=== PATIENT | female | born 1955 | race Caucasian/White ===

== ENCOUNTER 2018-08-20 11:50 | Inpatient (IN) ==
[2018-08-20 12:21] LABS: BASO# 0.07 X1000 (0.0-0.2); BASO% 0.3 % (0.0-0.8); HEMATOCRIT 36.5 % (37.0-47.0); IMM GRAN# 0.22 X1000 (0.0-0.04); IMM GRAN% 0.9 % (0.0-0.5); LYMPH# 0.57 X1000 (1.2-3.4); LYMPH% 2.4 % (20.5-51.1); MCH 29.1 PG (27-31); MCHC 32.9 g/dL (33-37); MCV 88.6 FL (81-99); MONO# 0.72 X1000 (0.11-0.59); MPV 11.2 FL (7.4-10.4); NEUT# 22.22 X1000 (1.4-6.5); NEUT% 93.4 % (42.2-75.2); PLT 288 X1000 (130-400); RBC 4.12 XMIL (4.2-5.4); RDW 15.9 % (11.5-14.5)
[2018-08-20] MEDS ORDERED: NS 1,000 ML IV ONE ×2 (12:28→13:23)
[2018-08-20 12:32] LABS: BE -1.1 mmoll (-3.0-3.0); BLOOD TYPE ARTERIAL; METHB 0.9 % (0.0-1.5); O2(CT) 17.5 mL/dL (15.0-23.0); O2HB 95.9 % (95.0-99.0); PCO2(98.6) 33 mmHg (35-45); PO2(98.6) 108 mmHg (60-100); SAMPLE BLOOD; SAO2 99.5 % (95.0-100.0); THB 12.9 g/dL (11.5-17.4); pH(98.6) 7.44 (7.35-7.45)
[2018-08-20 12:36] LABS: ALLEN TEST NO; MODALITY CANNULA
--- NOTE | 2018-08-20 12:48 | Diag Imaging Result Doc PS360 ---
EXAM: CHEST-PORTABLE - 08/20/2018 HISTORY: ams TECHNIQUE: Portable chest COMPARISON: 07/07/2018 FINDINGS: Heart size appears normal. Inspiration is somewhat shallow. There are stable small granuloma from old granulomatous disease at the right base. Lungs otherwise appear essentially clear. There is no pleural effusion or pneumothorax identified. IMPRESSION: Somewhat shallow inspiration. No other evidence of acute disease. Electronically signed by Bear Patel 08/20/2018 12:45 PM
[2018-08-20 13:00] LABS: ACETONE SERUM MODERATE (NEGATIVE)
[2018-08-20] MEDS ORDERED: TYLENOL PR ONE (13:11)
[2018-08-20 13:22] LABS: ALBUMIN 3.6 g/dL (3.5-5.0); CALCIUM 9.1 mg/dL (8.8-10.2); CREATININE 1.8 mg/dL (0.5-0.9); POTASSIUM 3.3 mmol/L (3.5-5.1); TOTAL BILIRUBIN 1.2 mg/dL (0.20-1.00); TOTAL PROTEIN 8.4 g/dL (6.3-8.3)
[2018-08-20 13:22] LABS: BILIRUBIN URINE NEGATIVE (NEGATIVE); BLOOD URINE 3+ (NEGATIVE); CLARITY SL. CLOUDY (CLEAR); COLOR YELLOW; KETONE URINE 1+(Small) mg/dL (NEGATIVE); LEUKOCYTES URINE TRACE (NEGATIVE); NITRITE URINE NEGATIVE (NEGATIVE); PROTEIN URINE 2+(100 mg/dL) mg/dL (NEGATIVE); UROBILINOGEN URINE NORMAL
[2018-08-20] MEDS ORDERED: HUMALOG IV ONE (13:22)
[2018-08-20 13:23] LABS: CK PROFILE 215 U/L (24-173)
[2018-08-20 13:23] LABS: URINE SOURCE CATH
[2018-08-20 13:25] LABS: URINE BACTERIA 4+ /HFP; URINE CAST NONE SEEN /LPF; URINE CRYSTAL NONE SEEN /HPF; URINE EPITHELIAL CELLS <10 /HPF (<10); URINE RBC <10 /HPF (<10); URINE YEAST NONE SEEN /HPF
[2018-08-20] MEDS ORDERED: HUMALOG (PARKWAY) ONE (13:27)
[2018-08-20] MEDS ORDERED: NS 1,000 ML ONE (13:33)
[2018-08-20 13:54] LABS: CK INDEX 1.3 (0.0-2.5); CK-MB 2.81 ng/mL (0.0-5.0)
[2018-08-20 14:03] LABS: INR 1.29; PROTIME 16.7 Seconds (11.0-16.0)
--- NOTE | 2018-08-20 14:45 | PROVIDER DOCUMENTATION ---
This chart was entered by Elisa Hays Scribe, acting as scribe for Gus Benitez MD. HPI-General Adult - General Chief Complaint: High Blood Sugar Stated Complaint: AMS Time Seen by Provider: 08/20/18 11:52 Source: patient, EMS ([facility]) Unable to obtain history due to:: altered Allergies/Adverse Reactions: Patient Allergies Allergy/AdvReac Type Severity Reaction Status Date / Time No Known Allergies Allergy Verified 03/28/18 19:08 Home Medications: Home Medication List Medication Instructions Recorded Confirmed Last Taken Type Insulin Glargine [Lantus] 25 units SUBQ DAILY 03/28/18 06/14/18 Unknown History Insulin Lispro [Humalog Kwikpen 8 dose SQ TID 03/28/18 06/14/18 Unknown History U-100] ATORVAstatin [Lipitor] 40 mg PO DAILY 06/13/18 08/20/18 Unknown History Amlodipine [Norvasc] 10 mg PO HS 06/13/18 08/20/18 Unknown History Isosorbide Mononitrate E.r. [Imdur] 120 mg PO DAILY 06/14/18 08/20/18 Unknown History Carvedilol [Coreg] 25 mg PO BID tablet 06/17/18 08/20/18 Unknown Rx Hydrocodone/APAP 5 mg/325 mg 1 each PO Q4H PRN PRN tablet 06/17/18 08/20/18 Unknown Rx [Eure-5] Levothyroxine [Synthroid] 50 microgm PO DAILY@0700 tablet 06/17/18 08/20/18 Unknown Rx Ranolazine E.r. [Ranexa] 1,000 mg PO BID tablet 06/17/18 Unknown Rx Sulfamethoxazole/Trimethoprim 1 each PO BID #20 tablet 06/17/18 Unknown Rx [Bactrim Ds Tablet] Polyethylene Glycol 3350 [Miralax] 17 gm PO DAILY #90 powd.pack 07/07/18 Unknown Rx Aspirin EC 1 tab PO DAILY 08/20/18 08/20/18 Unknown History Clonidine HCl 0.1 mg PO DAILY 08/20/18 08/20/18 Unknown History Hydralazine [Apresoline] 50 mg PO TID 08/20/18 08/20/18 Unknown History Losartan/Hydrochlorothiazide 1 tab PO DAILY 08/20/18 08/20/18 Unknown History [Losartan-Hctz 100-12.5 mg Tab] Pantoprazole Sodium 40 mg PO DAILY 08/20/18 08/20/18 Unknown History - History of Present Illness -Gen Adult Nature of Presenting Problems: 62 yowf presents to the ed via ems ([facility]) with c/o elevated BGL, hasn't taken her insulin 3 days. pt has home health that came in today and sent to the er. pt has [facility] and has multiple medications that look like she has not been taking correctly. pt has extra pills . pt is confused Location of Pain/Injury: reports: generalized (weakness) Quality of Pain: reports: aching (with weakness) Severity: reports: mild Onset/Duration: reports: unsure Timing: reports: still present Context/Activities at Onset: reports: light activity Modifying Factors: improves with: nothing Associated Symptoms: reports: fatigue, fever/chills, loss of appetite, malaise, muscle aches, weakness, other (wounds to bilateral feet). denies: shortness of breath, vomiting Similar Symptoms Previously?: Yes Recently seen or treated by another doctor?: No - Diabetes Related Context Context: reports: high blood sugar (greater then 500), change in mental status Review of Systems - Adult - REVIEW OF SYSTEMS - ADULT Constitutional: reports: see HPI, chills, fever, fatique Eyes: reports: no symptoms reported Ears, Nose, Mouth & Throat: reports: no symptoms reported Cardiovascular: reports: other (tachy). denies: chest pain Respiratory: denies: cough, shortness of breath, wheezing Gastrointestinal: denies: diarrhea, nausea, vomiting Genitourinary: reports: see HPI, frequency Musculoskeletal: reports: see HPI, muscle aches, muscle weakness Integumentary: reports: no symptoms reported Neurological: reports: see HPI, tremors, other (ams). denies: ataxia, dizziness /vertigo, headache/migraines, slurred speech Psychiatric: reports: no symptoms reported Endocrine: reports: see HPI, increased thirst Hematologic/Lymphatic: reports: no symptoms reported Allergic/Immunologic: reports: no symptoms reported All Other Systems: Reviewed and Negative Past History - Adult - PAST MEDICAL HISTORY-ADULT Review of Records: reports: Old Records Reviewed, Nursing Assessment Review, Medications Reviewed, Social history reviewed & non-contributory. Major Childhood Illnesses: reports: denies history Cardiovascular: reports: HTN, hyperlipidemia, IN Respiratory: reports: denies history Gastrointestinal: reports: GERD Obstetrical/Gynecological: reports: denies history Genitourinary: reports: denies history Musculoskeletal: reports: denies history Neurological: reports: denies history Psychiatric: reports: depression Endocrine/Immune: reports: Diabetes Diabetes Type: Type 2 Diabetes controlled by:: Insulin Dependent Other Conditions: reports: other cancer - PRIOR SURGERIES/PROCEDURES Surgical/Procedure History: reports: appendectomy, cholecystectomy, other ( oophrectomy) - IMMUNIZATION STATUS Childhood Immunizations: See Nurse Assessment Flu Vaccine: See Nurse Assessment - FAMILY HISTORY Family History: CAD under 55yo (mother had heart attack at 51) - SOCIAL HISTORY Smoking: denies Substance Use: denies Alcohol Use Frequency: never Living Situation: family Physical Exam-General - PHYSICAL EXAM-ADULT Exam Limited by: ams Initial Vital Signs Reviewed: Yes - CONSTITUTIONAL General Appearance: alert, obese, slow to respond - EYES Eyes: pale conjunctivae, other (2mm sluggish) - HEAD, EARS, NOSE, MOUTH & THROAT HENMT: negative: moist mucous membranes (dry) - NECK Neck: normal inspection - RESPIRATORY Respiratory: chest non-tender, lungs clear, normal breath sounds - CARDIOVASCULAR Cardiovascular: normal peripheral pulses, tachycardia (123) - GASTROINTESTINAL (ABDOMEN) Abdominal Exam: normal bowel sounds, soft - LYMPHATIC Lymphatic: no adenopathy - MUSCULOSKELETAL Back Exam: normal inspection Extremity: no calf tenderness, normal capillary refill, pedal edema, swelling ( BLE edema mild), other (wounds with bandage covered to bilateral feet). negative: normal gait - SKIN Integumentary: warm/dry, pallor. negative: normal turgor - PSYCHIATRIC Psych/Mental Status: disoriented x 3 (pt did not know name or place or time on exam) Progress - PLAN OF CARE/RESULTS Progress/Plan/Lab Results: Orders Category Date Time Status Finger Stick Blood Sugar (ED) DIRECTED Care 08/20/18 11:57 Active CHEST-PORTABLE [RAD] Stat Exams 08/20/18 11:58 Ordered ABG [RESP] Routine Lab 08/20/18 11:58 Ordered ACETONE SERUM [CHEM] Stat Lab 08/20/18 11:58 Ordered CBC WITH ELECTRONIC DIFF [HEME] Stat Lab 08/20/18 11:58 Ordered CK PROFILE [SP CHEM] Stat Lab 08/20/18 11:58 Ordered COMPREHENSIVE METABOLIC PANEL [CHEM] Stat Lab 08/20/18 11:58 Uncollected TROPONIN T Stat Lab 08/20/18 11:58 Ordered Hypo/Hyperglycemia Complaint Stat Oth 08/20/18 11:55 Ordered EKG [EKG] Stat Ther 08/20/18 11:58 Ordered Result Diagrams: 08/20/18 12:00 08/20/18 12:00 - REASSESSMENT Reassessment #1 Time Reassessed: 12:42 Status: unchanged Reassessment Comment: dr benitez at bedside Reassessment #2 Time Reassessed: 13:38 Status: unchanged Reassessment Comment: bgl 888 - EKG 1 Time of EKG reading by physician:: 12:00 EKG Read and Signed by:: Gus Benitez EKG Interpretation (*Must complete 3 of following elements*): Abnormal Rate: 122 Rhythm: sinus tachy with occ pvc Winger: normal QRS: LVH (with repolarization abnormality) - XRAY 1 XRAY: Bilateral XRAY Study: Chest Impression: See EMR Report (EXAM: CHEST-PORTABLE - 08/20/2018 HISTORY: ams TECHNIQUE: Portable chest COMPARISON: 07/07/2018 FINDINGS: Heart size appears normal. Inspiration is somewhat shallow. There are stable small granuloma from old granulomatous disease at the right base. Lungs otherwise appear essentially clear. There is no pleural effusion or pneumothorax identified. IMPRESSION: Somewhat shallow inspiration. No other evidence of acute disease. Electronically signed by Bear Patel 08/20/2018 12:45 PM 08/20/18 1245 Interpreting Physician: Bear Patel MD Dictated Date/Time: 08/20/18 1244 cc: Gus Benitez MD; None,PCP) - CONSULTS/PCP/HOSPITALIST Notification #1 *Consult/PCP/Hospitalist*: hospitalist dr haisrton Time Discussed: 13:38 Consult Disposition: Admit Departure - Departure Date of Disposition Decision: 08/20/18 Time of Disposition Decision: 13:39 DIAGNOSIS: Uncontrolled hypertension Uncontrolled diabetes mellitus Qualifiers: Diabetes mellitus type: type 2 Glycemic state: with hyperglycemia Qualified Code(s): E11.65 - Type 2 diabetes mellitus with hyperglycemia Diabetic foot ulcer Qualifiers: Diabetic foot ulcer location: toe Diabetes mellitus type: type 2 Laterality: unspecified laterality Non-pressure ulcer stage: limited to breakdown of skin Qualified Code(s): E11.621 - Type 2 diabetes mellitus with foot ulcer; L97.501 - Non-pressure chronic ulcer of other part of unspecified foot limited to breakdown of skin Disposition: ADMITTED INPATIENT 09 Certified Medical Emergency: Emergent Condition: Stable Additional Freetext Instructions: ED Follow Up Instructions: You have been treated by a care provider in the Emergency Department. These instructions are being provided to you so you can have an understanding of how to care for yourself upon discharge. Upon discharge from the Emergency Department, you are responsible for making arrangements for follow-up care by a physician of your choice. Take all prescribed medications as directed. Return to the Emergency Department immediately for any new or worsening symptoms. You may call the Physician Referral phone number at [phone] to obtain a list of Physicians who are taking new patients. Referrals and Follow-Ups: None,PCP [Primary Care Provider] - - Critical Care Note This patient required my direct & personal management of CC.: Yes Total Time (mins): 38 Critical Care Statement: This patient required my direct personal management to treat or rule out processes, the absence of which, could potentiallly result in sudden, clinically significant life or limb threatening deterioration. Attestation - Physician/ MANUELA Attestation Patient care was provided by Advanced Practice Provider:: No The physician spent face to face time with patient:: Yes Advanced Practice Provider documentation review:: Supervising physician onsite and consulted in the evaluation and care of this patient. The physician did have a face to face encounter with the patient. This chart was documented by the indicated scribe, (Elisa Hays Scribe) and accurately reflects the services I performed and decisions made by me, Gus Benitez MD, as attested by the provider's signature.
[2018-08-20] MEDS ORDERED: ZOSYN 3.375 GM in NS 50 ML IV ONE (14:56)
[2018-08-20] MEDS ORDERED: D50W SYRINGE IV SCH ×2 (15:30→16:00)
[2018-08-20] MEDS ORDERED: HUMULIN R 100 UNIT in NS 100 ML SUBQ SCH ×2 (15:30→16:00)
[2018-08-20] MEDS ORDERED: HUMULIN R (PARKWAY) ONE (15:33)
[2018-08-20] MEDS ORDERED: OFIRMEV 1000 MG/ISOTONIC SOLN 1,000 MG/100 ML BOTTLE IV PRN (15:42)
[2018-08-20] MEDS: NS 1,000 ML IV SCH ×3 (15:42→23:22)
[2018-08-20] MEDS ORDERED: OFIRMEV 1000 MG/ISOTONIC SOLN 1,000 MG/100 ML BOTTLE ONE (15:47)
[2018-08-20] MEDS ORDERED: HUMULIN R 100 UNIT in NS 100 ML IV SCH (16:10)
[2018-08-20 16:19] LABS: CK INDEX 1.3 (0.0-2.5); CK-MB 2.24 ng/mL (0.0-5.0)
[2018-08-20] MEDS: HUMULIN R 100 UNIT in NS 100 ML IV SCH (17:00)
[2018-08-20] MEDS: ZYVOX 600 MG/D5W 600 MG/300 ML IVPB IV SCH (17:35)
--- NOTE | 2018-08-20 17:36 | HISTORY AND PHYSICAL ---
PRIMARY CARE PHYSICIAN: Listed as none, but it is noted that she is followed by home health at home. CHIEF COMPLAINT: Increased blood sugar. HISTORY OF PRESENTING ILLNESS: This is a 62-year-old female who presents to [facility] ER via EMS after home health saw her today, and she had an elevated blood sugar. Apparently, she had not taken any of her insulin for the past 3 days and so she was sent to the emergency room for evaluation. She was also noted to have confusion , weakness, fatigue, fever, chills, and a decreased appetite. She is noted to have some chronic wounds to her bilateral feet that are diabetic foot ulcers. When she arrived to the emergency room, she had a white blood cell count of 23.80. Her blood sugar was 888 and anion gap was 26. She was noted to have creatinine of 1.8. Her troponin was 0.201. Plasma lactate was 3.9. She has a temperature of 102.5 degrees after receiving some Tylenol so she is being admitted to the intensive care unit at the [facility] due to non bed availability here at [facility]. PAST MEDICAL HISTORY: 1. Coronary artery disease, hypertension, diabetes type 2 uncontrolled with hyperglycemia. 2. Medical noncompliance. 3. Hyperlipidemia. 4. Chronic diabetic foot ulcers with a history of Morganella and MRSA. PAST SURGICAL HISTORY: Cholecystectomy, appendectomy, right oophorectomy and heart catheterization. FAMILY HISTORY: Reviewed and noncontributory. SOCIAL HISTORY: She currently lives with family. Denies any tobacco use, as she quit over a year ago. Denies any alcohol or illicit drug use. ALLERGIES: No known drug allergies. HOME MEDICATIONS: A current list will need to be obtained and restarted as appropriate. I will place an order for nursing to update and confirm home medications. LABORATORY DATA: White blood cell count of 23.80, hemoglobin 12, hematocrit 36.5, and platelets 288,000. PT and INR of 16.7 and 1.29 with pH of 7.44, pCO2 of 33, PO2 108, and bicarb 24. This was on 2-1/2 L via nasal cannula. Sodium 139, potassium 3.3, chloride 89, CO2 24, BUN of 70, creatinine 1.8, glucose 888, and creatine kinase was 215. CK-MB of 2.81. Troponin 0.201 and plasma lactate of 3.9. Urinalysis was negative. Anion gap was 26, but acetone level was moderate. Chest x-ray showed somewhat shallow inspiration, but no evidence of acute disease otherwise. REVIEW OF SYSTEMS: Unable to obtain from patient due to lethargy. PHYSICAL EXAMINATION: On arrival, she had a temperature of 99.8 degrees, pulse 123, respirations 18, blood pressure 158/108, saturating 98% on 2 L. Currently, her temperature is up to 102.5, pulse 121, blood pressure 129/75 and saturating 98% on 2 L. GENERAL: This is a 62-year-old female who is lying in the bed unable to answer questions due to lethargy. Reviewed ER records, past medical records and spoke with patient's niece at the bedside to obtain history. HEENT: Normocephalic, atraumatic. Normal ENT inspection. Oropharynx and nares are clear. EYES: Pupils are equal, round, reactive to light and accommodation. Extraocular movements are intact. NECK: Normal inspection. Normal range of motion. LUNGS: Clear to auscultation bilaterally with equal lung expansion and chest wall movement. HEART: Regular rate and rhythm. No murmurs, rubs, or gallops. ABDOMEN: Soft, nontender, and nondistended. Bowel sounds are present x4 quadrants. MUSCULOSKELETAL: Unable to assess strength at this time. It is noted patient has diabetic foot ulcers to bilateral feet posteriorly that are chronic. NEUROLOGICAL: Cranial nerves 2-12 unable to assess complete at this time due to lethargy. ASSESSMENT: 1. Sepsis. 2. Metabolic encephalopathy. 3. Nonketotic hyperglycemia with diabetes type 2 uncontrolled. 4. Acute kidney injury. 5. Bilateral diabetic foot ulcers. 6. Leukocytosis. PLAN: She is being admitted to the intensive care unit at [facility] and placed on telemetry. We will place on a clear liquid diet. Of course, at this time she is unable to drink, but once she receives her medications I am hoping that she will perk up a little bit. We will have wound care to come address her bilateral diabetic foot ulcers to posterior feet. Zosyn 3.375 g IV q.6, [id number] mg IV q.6h p.r.n., Zofran 4 mg IV q.4 hours p.r.n. We will update and confirm home medications. We will do serial plasma lactate. We will recheck a CBC and BMP in the morning. She has been placed on the insulin protocol for non DKA patient. Will follow that protocol. Check blood sugars per the protocol. We need to verify her home medications, and restart as appropriate. I will place her on normal saline at 125 mL an hour. Further orders after seen by attending. Dictated by GEORGES Carreon for Pily Spencer MD cc: GEORGES Carreon MD [facility]
--- NOTE | 2018-08-20 17:54 | EKG Report ---
Test Performed on : 08/20/2018 12:00:18 PM Test Reason : KH Blood Pressure : / mmHG Vent. Rate : 122 BPM Atrial Rate : 122 BPM P-R Int : 166 ms QRS Dur : 076 ms QT Int : 298 ms P-R-T Axes : 000 -07 150 degrees QTc Int : 424 ms Sinus tachycardia. with occasional premature ventricular complexes. Left ventricular hypertrophy with repolarization abnormality Abnormal ECG When compared with ECG of 07-JUL-2018 11:45, (Unconfirmed) premature ventricular complexes. are now present Vent. rate has increased BY 49 BPM Non-specific change in ST segment in Anterior leads Unconfirmed Result
--- NOTE | 2018-08-20 18:25 | EKG Report ---
Test Performed on : 08/20/2018 1:54:00 PM Test Reason : DKA Blood Pressure : / mmHG Vent. Rate : 120 BPM Atrial Rate : 120 BPM P-R Int : 182 ms QRS Dur : 072 ms QT Int : 246 ms P-R-T Axes : 061 -08 156 degrees QTc Int : 347 ms Sinus tachycardia. with premature ventricular complexes. or fusion complexes Voltage criteria for left ventricular hypertrophy ST & T wave abnormality, consider lateral ischemia Abnormal ECG When compared with ECG of 20-AUG-2018 12:00, (Unconfirmed) fusion complexes are now present Unconfirmed Result
--- NOTE | 2018-08-20 19:05 | HISTORY AND PHYSICAL ---
ADDENDUM TO THE HISTORY AND PHYSICAL NOTE: I saw the patient [id number] while she was there at the emergency room at [facility]. I fully agree with the assessment and plan of nurse practitioner, Kayla Malloy. This is a 62-year-old, female, who is admitted with sepsis, along with nonketotic, hyperosmolar hyperglycemia, and also having acute kidney injury secondary to dehydration. She is going to be admitted to intensive care unit at [facility] and we therefore will be transferring her over there. Please see chart for detailed orders. cc: Pily Spencer MD
[2018-08-20 20:24] LABS: CK INDEX 0.8 (0.0-2.5); CK-MB 2.01 ng/mL (0.0-5.0)
[2018-08-20] MEDS: ZOSYN 3.375 GM in NS 50 ML IV SCH (20:38)
[2018-08-21 01:12] LABS: CALCIUM 8.6 mg/dL (8.8-10.2); CREATININE 1.5 mg/dL (0.5-0.9); POTASSIUM 2.5 mmol/L (3.5-5.1)
[2018-08-21] MEDS: NS + KCL 40 MEQ 1,000 ML IV SCH ×2 (02:02→09:36)
[2018-08-21] MEDS: POTASSIUM CHLORIDE 20 MEQ/SWI 20 MEQ/100 ML IVPB IV SCH ×2 (02:03→05:00)
[2018-08-21] MEDS: ZOSYN 3.375 GM in NS 50 ML IV SCH ×4 (02:17→20:47)
[2018-08-21] MEDS: HUMULIN R 100 UNIT in NS 100 ML IV SCH (02:24)
[2018-08-21] MEDS: ZYVOX 600 MG/D5W 600 MG/300 ML IVPB IV SCH (05:41)
[2018-08-21] MEDS: MORPHINE IV PRN ×2 (09:38→15:52)
[2018-08-21 09:43] LABS: BASO# 0.03 X1000 (0.0-0.2); BASO% 0.1 % (0.0-0.8); HEMOGLOBIN 10.2 g/dL (12.0-16.0); IMM GRAN# 0.12 X1000 (0.0-0.04); IMM GRAN% 0.6 % (0.0-0.5); LYMPH# 1.15 X1000 (1.2-3.4); LYMPH% 5.7 % (20.5-51.1); MCH 28.6 PG (27-31); MCHC 31.9 g/dL (33-37); MCV 89.6 FL (81-99); MONO# 1.47 X1000 (0.11-0.59); MONO% 7.3 % (1.7-9.3); MPV 11.2 FL (7.4-10.4); NEUT# 17.33 X1000 (1.4-6.5); NEUT% 86.3 % (42.2-75.2); PLT 186 X1000 (130-400); RBC 3.57 XMIL (4.2-5.4); RDW 16.2 % (11.5-14.5)
[2018-08-21 09:52] LABS: CALCIUM 8.3 mg/dL (8.8-10.2); CREATININE 1.3 mg/dL (0.5-0.9); POTASSIUM 3.1 mmol/L (3.5-5.1)
[2018-08-21] MEDS ORDERED: CUBICIN 600 MG in NS 100 ML IV SCH (10:15)
[2018-08-21] MEDS ORDERED: POTASSIUM CHLORIDE 60 MEQ in NS 500 ML IV ONE (10:19)
[2018-08-21 10:25] LABS: BANDS 24 % (0-1); LARGE PLATELETS 1+; LYMPHS 6 % (21-51); SEGS 70 % (42-75)
[2018-08-21] MEDS: HUMALOG SUBQ SCH ×4 (10:54→21:34)
[2018-08-21] MEDS: D5W 1,000 ML IV SCH ×2 (10:55→17:19)
[2018-08-21 10:56] LABS: MAGNESIUM 2.3 mg/dL (1.5-2.7); PHOSPHORUS 2.3 mg/dL (2.7-4.5)
[2018-08-21 11:00] LABS: HEMOGLOBIN A1C 9.5 % (4.8-6.0)
[2018-08-21] MEDS: BASAGLAR SUBQ SCH (11:09)
[2018-08-21] MEDS ORDERED: INSULIN PEN NEEDLES ONE (11:16)
--- NOTE | 2018-08-21 11:16 | PROGRESS NOTE ---
DATE: 08/21/2018 SUBJECTIVE: The patient has been a sleeper in the morning. Nursing staff report when we try to move her, she started complaining of pain all over her body and start requesting her pain medications. OBJECTIVE: Vital signs: Temperature 97.6 degrees, heart rate 98, respiratory 19, blood pressure 108/71, O2 saturation 100% 2 L nasal cannula. General: This is a 62-year-old female, lying in bed, in no acute distress. HEENT: Head is normocephalic, atraumatic. Mucous membranes dry. Neck: No JVD noted. No carotid bruits. No lymphadenopathy. No thyromegaly. Cardiovascular: S1, S2 heard. No murmurs, gallops, or rubs. Regular rate and rhythm. Respiratory: Clear bilaterally to auscultation. No work of breathing. No use of accessory muscles. Abdomen: Soft, nontender to palpation. Nondistended. Bowel sounds present. No organomegaly noted. Extremities: No clubbing or cyanosis. It is noted the patient has diabetic foot ulcers to bilateral feet posterior that looks like chronic. Neurological: Patient is sleepier. Does not follow any commands. Responds to verbal stimuli though. LABORATORY DATA: White cell count 20.1, hemoglobin 10.2, hematocrit 32.0, platelets 186,000. Sodium 151, potassium 3.1 chloride 115, creatinine 1.3, blood sugars 117, calcium 8.3. Blood culture shows gram-positive cocci in the blood culture and gram-negative rods in the urine culture. Actually the blood culture positive both of them number. ASSESSMENT AND PLAN: 1. Sepsis secondary to gram-positive bacteremia. The patient has been receiving Zyvox but considering that the patient has bacteremia, we can switch to daptomycin. Also patient has gram-negative rods in the urine culture so Zosyn will be continued. Dr. Abarca with Infectious Disease has been consulted. We will follow his recommendations. 2. Metabolic encephalopathy. Patient continues to be confused. At this time, we will continue to monitor this patient closely in the intensive care unit. 3. Nonketotic hyperglycemic state. Blood sugars are much better so, at this point, we will stop his insulin drip and start home medications, in this case Lantus plus sliding scale insulin. 4. Hypernatremia. We will start D5W considering that this patient needs at this time free water. We will continue to monitor CBC daily. 5. Acute kidney injury. That condition is getting better with fluids. We will continue to monitor. 6. Bilateral diabetic foot ulcers. I think that is probably the reason why this patient got this gram-positive cocci bacteremia. In any case, we have consulted Dr. Abarca. We will see what he has to say. 7. Disposition. We will continue to monitor this patient closely. cc: Nicolas Woo MD
[2018-08-21 14:45] LABS: CALCIUM 8.2 mg/dL (8.8-10.2); CREATININE 1.1 mg/dL (0.5-0.9); POTASSIUM 3.3 mmol/L (3.5-5.1)
[2018-08-21] MEDS: ZOFRAN IV PRN (15:15)
[2018-08-22] MEDS: D5W 1,000 ML IV SCH (00:44)
[2018-08-22] MEDS: HUMALOG SUBQ SCH ×8 (00:44→20:02)
[2018-08-22] MEDS: ZOSYN 3.375 GM in NS 50 ML IV SCH (02:34)
[2018-08-22 05:54] LABS: BASO# 0.05 X1000 (0.0-0.2); BASO% 0.2 % (0.0-0.8); HEMATOCRIT 34.1 % (37.0-47.0); HEMOGLOBIN 10.6 g/dL (12.0-16.0); IMM GRAN# 0.25 X1000 (0.0-0.04); IMM GRAN% 0.8 % (0.0-0.5); LYMPH# 1.84 X1000 (1.2-3.4); LYMPH% 5.8 % (20.5-51.1); MCH 28.3 PG (27-31); MCHC 31.1 g/dL (33-37); MCV 91.2 FL (81-99); MONO# 1.55 X1000 (0.11-0.59); MONO% 4.9 % (1.7-9.3); MPV 11.1 FL (7.4-10.4); NEUT# 28.19 X1000 (1.4-6.5); NEUT% 88.3 % (42.2-75.2); PLT 241 X1000 (130-400); RBC 3.74 XMIL (4.2-5.4); RDW 16.8 % (11.5-14.5); WBC 31.88 X1000 (4.8-10.8)
[2018-08-22 05:59] LABS: CALCIUM 8.8 mg/dL (8.8-10.2); CREATININE 1.2 mg/dL (0.5-0.9); MAGNESIUM 2.3 mg/dL (1.5-2.7); PHOSPHORUS 1.8 mg/dL (2.7-4.5); POTASSIUM 3.3 mmol/L (3.5-5.1)
[2018-08-22] MEDS: SYNTHROID PO SCH (06:20)
[2018-08-22] MEDS ORDERED: HUMALOG SUBQ SCH (06:30)
[2018-08-22] MEDS ORDERED: ROCEPHIN 2 GM in NS 50 ML IV SCH (07:45)
[2018-08-22] MEDS: NS 1,000 ML IV SCH ×2 (08:48→23:04)
[2018-08-22] MEDS: POTASSIUM CHLORIDE 20 MEQ/SWI 20 MEQ/100 ML IVPB IV SCH ×2 (08:48→10:23)
[2018-08-22] MEDS: BASAGLAR SUBQ SCH (08:49)
[2018-08-22] MEDS ORDERED: CATAPRES PO SCH (09:00)
--- NOTE | 2018-08-22 09:46 | PROGRESS NOTE ---
DATE: 08/22/2018 SUBJECTIVE: The patient has been still sleepy. No other issues noted as per nursing staff. OBJECTIVE: Vital Signs: Temperature 97.9 degrees, heart rate 89, respiratory rate 17, blood pressure 152/85, O2 saturation 100% on 2 L nasal cannula. General Examination: This is an obese, 62-year-old, female lying in bed, in no acute distress. HEENT: Head is normocephalic and atraumatic. Mucous membranes dry. Neck: No JVD noted. No carotid bruits. No lymphadenopathy. No thyromegaly. Cardiovascular Examination: S1 and S2 heard. No murmurs, gallops, or rubs. Regular rate and rhythm. Respiratory Examination: Clear bilaterally to auscultation. No work of breathing or using accessory muscles. Abdomen: Soft , nontender to palpation. Bowel sounds present. No organomegaly noted. Extremities: No clubbing or cyanosis. Patient has diabetic foot ulcers on both feet that looked like chronic. Neurological Examination: The patient is sleepier. Does not follow commands. Responds to verbal stimuli though. Laboratory Data: White cell count 31.98, hemoglobin 10.6, hematocrit 34.1, platelets 241,000. Sodium 143, potassium 3.3, chloride 114, creatinine 1.1, and sugar is 477. A1c 9.5. ASSESSMENT AND PLAN: 1. Sepsis secondary to Streptococcal equisimilis. This is what we found on blood cultures so we are going to stop daptomycin. We are going to switch antibiotics to ceftriaxone but considering that this patient is also having an elevated white cell count that is getting worse, I prefer to get Dr. Abarca is on board and see what else we can do for this patient. She also has a urinary tract infection secondary to Escherichia coli. We will continue with the same management. 2. Metabolic encephalopathy. Patient continues to be confused. White cell count is elevated. At this point, we will continue with the same management. 3. Nonketotic hyperglycemic state. Blood sugars now are still elevated because of the D5-W that she was receiving to control hyponatremia. At this point, that medication has been stopped and will do normal saline at 75 mL per hour. 4. Acute kidney injury, getting better. We will continue to monitor BMP. 5. Bilateral diabetic foot ulcers. I think that is probably the reason why this patient got this gram-positive cocci bacteremia. Dr. Abarca has been consulted. We will follow his recommendations. 6. Disposition. We will continue to monitor this patient here in the intensive care unit. cc: Nicolas Woo MD MTDD
[2018-08-22] MEDS: MORPHINE IV PRN ×2 (10:00→15:46)
[2018-08-22] MEDS: ASPIRIN EC PO SCH (10:23)
[2018-08-22] MEDS: ZOFRAN IV PRN (15:52)
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
--- NOTE | 2018-08-22 17:23 | Diag Imaging Result Doc PS360 ---
EXAM: CT HEAD W/O CONTRAST - 08/22/2018 HISTORY: brain infection TECHNIQUE: CT head without contrast. No contrast administered per request of the referring provider. COMPARISON: None. FINDINGS: There is no evidence of intracranial hemorrhage, mass effect, midline shift, or hydrocephalus. There is no abnormal fluid collection identified. There is a 1 cm lacunar infarct at the right centrum semiovale of nonspecific age. There are additional mild chronic appearing microvascular ischemic changes. There is no other infarct identified, although acute infarcts may not be immediately visible. There is no evidence of skull fracture. There is some mild paranasal sinus mucosal thickening noted. IMPRESSION: 1 cm lacunar infarct at right centrum semiovale of nonspecific age. No other visible acute intracranial abnormality. No hemorrhage or mass effect. This exam was performed using automated exposure control, adjustment of mA or kV according to patient size, and/or use of iterative reconstruction technique. Electronically signed by Bear Patel 08/22/2018 5:20 PM
[2018-08-22] MEDS: ROCEPHIN 2 GM in NS 50 ML IV SCH (19:56)
[2018-08-22] MEDS ORDERED: LABETALOL IV PRN (22:41)
[2018-08-22] MEDS: APRESOLINE IV SCH (23:03)
[2018-08-23] MEDS: HUMALOG SUBQ SCH ×6 (01:44→20:56)
[2018-08-23] MEDS: MORPHINE IV PRN ×3 (02:32→23:22)
[2018-08-23] MEDS: APRESOLINE IV SCH ×2 (05:16→10:34)
[2018-08-23] MEDS: SYNTHROID PO SCH (06:10)
[2018-08-23] MEDS: ROCEPHIN 2 GM in NS 50 ML IV SCH ×2 (07:45→19:49)
[2018-08-23 08:41] LABS: BASO# 0.03 X1000 (0.0-0.2); BASO% 0.1 % (0.0-0.8); EOS# 0.01 X1000 (0.0-0.7); HEMATOCRIT 33.2 % (37.0-47.0); HEMOGLOBIN 10.2 g/dL (12.0-16.0); IMM GRAN% 0.8 % (0.0-0.5); LYMPH# 1.96 X1000 (1.2-3.4); LYMPH% 7.7 % (20.5-51.1); MCH 28.5 PG (27-31); MCHC 30.7 g/dL (33-37); MCV 92.7 FL (81-99); MONO# 1.18 X1000 (0.11-0.59); MONO% 4.6 % (1.7-9.3); MPV 10.9 FL (7.4-10.4); NEUT# 22.21 X1000 (1.4-6.5); NEUT% 86.8 % (42.2-75.2); PLT 271 X1000 (130-400); RBC 3.58 XMIL (4.2-5.4); RDW 17.2 % (11.5-14.5); WBC 25.59 X1000 (4.8-10.8)
[2018-08-23 08:54] LABS: BANDS 10 % (0-1); LYMPHS 12 % (21-51); MONO 2 % (1-9); SEGS 74 % (42-75)
[2018-08-23] MEDS: ASPIRIN EC PO SCH (09:01)
[2018-08-23] MEDS: BASAGLAR SUBQ SCH (09:01)
--- NOTE | 2018-08-23 09:08 | EKG Report ---
Test Performed on : 08/20/2018 6:24:08 PM Test Reason : repeat Blood Pressure : / mmHG Vent. Rate : 102 BPM Atrial Rate : 102 BPM P-R Int : 172 ms QRS Dur : 086 ms QT Int : 306 ms P-R-T Axes : 015 -09 144 degrees QTc Int : 398 ms Sinus tachycardia. Possible Left atrial enlargement Left ventricular hypertrophy with repolarization abnormality Abnormal ECG When compared with ECG of 20-AUG-2018 13:54, (Unconfirmed) fusion complexes are no longer present premature ventricular complexes. are no longer present Confirmed by Eri ZUÑIGA, Pedrito Craig ([id number]) on 08/23/2018 3:26:59 PM
[2018-08-23 09:25] LABS: AGAP 10; BUN 34 mg/dL (8-22); CALCIUM 8.9 mg/dL (8.8-10.2); CHLORIDE 120 mmol/L (98-107); COSMO 316; CREATININE 0.8 mg/dL (0.5-0.9); ESTIMATED GFR > 60; GLUCOSE 189 mg/dL (70-104); MAGNESIUM 2.2 mg/dL (1.5-2.7); PHOSPHORUS 2.4 mg/dL (2.7-4.5); POTASSIUM 3.8 mmol/L (3.5-5.1); SODIUM 153 mmol/L (136-145); TCO2 23 mmol/L (25-35)
[2018-08-23] MEDS: D5W 1,000 ML IV SCH ×2 (10:12→18:37)
[2018-08-23] MEDS: NS 1,000 ML IV SCH (10:20)
--- NOTE | 2018-08-23 10:36 | PROGRESS NOTE ---
DATE: 08/23/2018 SUBJECTIVE: Patient is still sleepy and confused, although she answered basic questions this morning. No other issues noted as per nursing staff overnight. OBJECTIVE: Vital Signs: Temperature 97.6 degrees, heart rate 101, respiratory 16, blood pressure 148/66, O2 saturation 98% on 2 L nasal cannula. General Examination: This is a chronically ill- looking and obese, 62-year-old female lying in bed, in no acute distress. HEENT: Head is normocephalic, atraumatic. Mucous membranes dry. Neck: No JVD noted. No carotid bruits. No lymphadenopathy. No thyromegaly. Cardiovascular: S1, S2 heard. No murmurs, gallops. Regular rate and rhythm. Respiratory: Clear bilaterally to auscultation. No work of breathing or using accessory muscles. Abdomen: Soft. Nontender to palpation. Bowel sounds present. No organomegaly. Extremities: No clubbing or cyanosis. There are diabetic foot ulcers noted on both feet. They look like chronic lesions. Neurological: Patient is sleepy. A little bit awake in terms of being a little bit more responsive to verbal stimuli. Does follow simple commands, like squeeze my fingers. Moves 4 extremities spontaneously. LABORATORY DATA: White cell count 25.59, hemoglobin 10.2, hematocrit 33.2, platelets 271,000. Sodium 153, blood sugar is 189. ASSESSMENT AND PLAN: 1. Sepsis secondary to streptococcal equisim. This is what we found out on blood cultures. We have changed the antibiotics to ceftriaxone. Dr. Abarca from Infectious Disease has been consulted and he increased the dose to 2 g IV q.12 hours. He mentioned in his note that because of streptococcal bacteremia and the possibility that this infection may have gone to the brain or possibility also of meningitis, he decided to consult Dr. Sandhu's to perform an LP. The CT of the head without contrast showed a 1 cm lacunar infarct in the right centrum semiovale of nonspecific age. In any case, as we mentioned before, Dr. Sandhu has been consulted. We will follow recommendations. We will do an MRI of the brain to have better visualization of brain anatomy and new stroke. 2. Encephalopathy, multifactorial. The patient continues to be confused. This is related to the stroke that we found out plus the streptococcal bacteremia and the hyponatremia. In any case, we will continue to monitor this patient closely. 3. Diabetic ketoacidosis. When patient was admitted to the hospital the blood sugar was 888 and anion gap of 26. Patient has been placed on an insulin drip and the blood sugar has been controlled recently better. At this point, we will continue with the same management, in this case sliding scale insulin. 4. Hyponatremia. Will start free on this patient with D5W at 150 mL per hour. We will check BMP tomorrow. 5. Acute kidney injury, resolved. 6. Bilateral diabetic foot ulcers. Wound nurse has been consulted. I think that is why this patient developed this gram-positive bacteremia. We will continue with the same antibiotic management. 7. Recent lacunar infarct. Neurology has been consulted and will do a neurologic consultation and MRI of brain and MRA of the head and neck as well. 8. Disposition. We will continue to monitor this patient closely. Dr. Sandhu from Neurology and Dr. Abarca from Infectious Disease have been consulted. cc: Nicolas Woo MD MTDD
--- NOTE | 2018-08-23 12:56 | Diag Imaging Result Doc PS360 ---
MRI BRAIN W/WO CONTRAST - 08/23/2018 INDICATION: lacunar infarct COMPARISON: None FINDINGS: There are several scattered areas of restricted diffusion mainly in the cerebral hemispheres bilaterally in the watershed areas, heavily concentrated in the deep white matter of the frontal and occipital lobes. There are also a few areas of restricted diffusion in the corpus callosum and both cerebellar hemispheres. These are all relatively small areas. No evidence of intracranial mass or hemorrhage. No abnormal contrast enhancement. Midline structures are unremarkable. The ventricles and sulci are normal in size and contour. There is extensive patient motion artifact throughout the exam. IMPRESSION: Several scattered areas of restricted diffusion throughout the brain involving the cerebrum and cerebellum. The greatest concentration is in the watershed areas of the cerebral white matter. This may indicate either an infarction due to low blood flow status, or microemboli. Electronically signed by Chau Zarate 08/23/2018 12:53 PM
--- NOTE | 2018-08-23 13:05 | Diag Imaging Result Doc PS360 ---
MRA BRAIN W/CONTRAST - 08/23/2018 INDICATION: lacunar infarct TECHNIQUE: Noncontrast [id number] technique was used COMPARISON: None FINDINGS: There is extensive patient motion artifact. The cerebral arteries cannot be accurately evaluated. The internal carotid arteries and basilar arteries are grossly patent. IMPRESSION: Severe patient motion artifact. No obvious abnormality. Electronically signed by Chau Zarate 08/23/2018 1:02 PM
--- NOTE | 2018-08-23 13:06 | Diag Imaging Result Doc PS360 ---
MRA NECK W/CONT - 08/23/2018 INDICATION: lacunar infarct TECHNIQUE: COMPARISON: None FINDINGS: The great vessel origins are grossly patent. The carotid artery systems are patent bilaterally. No aneurysm or significant stenosis. The vertebral arteries are patent bilaterally. IMPRESSION: Negative exam. Electronically signed by Chau Zarate 08/23/2018 1:04 PM
--- NOTE | 2018-08-23 13:17 | ECHO REPORT ---
ORDER DATE: 08/23/2018 ECHOCARDIOGRAPHIC MEASUREMENTS: 1. Interventricular septum 1.3. 2. Left ventricular posterior wall 1.2. 3. Diastolic diameter 4.3. 4. Left atrium 3.5. 5. Aorta 2.7. FINDINGS: Technically suboptimal study. Very poor acoustic window. Aortic valve leaflets were sclerosed, trileaflet. Pulmonic valve was normal. There was moderate mitral annular calcification. Mitral valve leaflets not well visualized. Tricuspid valve leaflets not well visualized. Peak velocity across the tricuspid valve less than 2 m/sec. There is no aortic stenosis or regurgitation. There is trace tricuspid regurgitation. There is mild mitral regurgitation. Mitral valve leaflets appear to be restricted with a mitral valve area of pressure half-time of 3.5 square centimeters, which is normal. However, leaflets could not be well visualized. Optison was used to assess left ventricular systolic function. Normal left ventricular cavity size. Concentric left ventricular hypertrophy. Estimated ejection fraction of 65% to 70% with hyperdynamic left ventricular systolic function. cc: MD Alexandr Bower MD
[2018-08-23] MEDS: APRESOLINE PO SCH (16:35)
--- NOTE | 2018-08-23 17:34 | CONSULTATION ---
DATE OF CONSULTATION: 08/23/2018 REASON FOR CONSULT: Request for lumbar puncture for question of meningitis. HISTORY OF PRESENT ILLNESS: This is a 56-mrpm-bga- female with uncontrolled diabetes, coronary disease, hypertension, and hyperlipidemia who was admitted three days ago after home health nurse found her to be confused, generally weak and fatigued with fever, chills and elevated blood sugar. Her blood sugar was above 800 on arrival. She had a leukocytosis. She also had acute kidney injury felt secondary to dehydration. She has been diagnosed with streptococcal bacteremia and a urinary tract infection as well and is being treated for those. She has been confused during her stay here. There has been a request for lumbar puncture to evaluate for meningitis. The patient just had an MRI of the brain this afternoon that showed several scattered small infarcts involving the anterior and posterior circulation on the right and on the left sides of the brain. PAST MEDICAL HISTORY: Uncontrolled type 2 diabetes, coronary disease, hypertension, hyperlipidemia, chronic diabetic foot ulcers, and infection, medical noncompliance, cholecystectomy, appendectomy, and right oophorectomy. FAMILY HISTORY: No strokes. SOCIAL HISTORY: She lives with family. She reported quitting tobacco over a year ago. No alcohol or illicits. She is apparently receiving home health. ALLERGIES: NO KNOWN DRUG ALLERGIES LISTED. CURRENT MEDICATIONS: Reviewed in the chart and include: 1. Aspirin 325 mg daily. 2. Lipitor 40 mg. 3. Morphine p.r.n. pain. REVIEW OF SYSTEMS: Unobtainable due to patient's mental status changes. PHYSICAL EXAM: Vital signs: Her last fever was documented at 100.4 three days ago. She has been afebrile since. Blood pressure on arrival was 158/108. There is one single reading of 58/43 on 08/21, but otherwise, pressures have all been elevated. Currently, 171/70. Pulse 70s-low 100s, respirations 14, 100% on 2 L nasal cannula. General: Ms. Dash is supine in bed. Appears to be asleep with eyes closed. When calling to her, she does not immediately respond. With verbal and tactile stimulation, she raises her eyebrows, but she does not open her eyes on command. With more vigorous stimulation, she finally opens her eyes on command and regards. She knows she is in the hospital. States her name. Said the year was 191 but seemed to correct to 2019 with assistance. She could not tell me the month, and her concentration is reduced. She could follow simple commands. She did follow more complex commands. She would at times drift to sleep and would need realerting. There is an overall paucity of speech, but I did not detect a definite language disturbance on limited testing. HEENT: Pupils are equal, round and reactive. Gaze is conjugate and forward. Her ocular movements are full in all directions. She is not attentive enough for visual field testing by direct confrontation, but she does blink to threat. Extremities: Tone is symmetric in the limbs. She is at least antigravity and probably at least 4- /5 in the upper extremities. She could not food expeditor my fingers as well on the right compared to the left though she does have some significant edema and seems to be in pain in general when attempting to manipulate her extremities. Lower extremities are at least 3/5. She responds to noxious stimuli in all extremities equally. There appears to be a length dependent loss to painful stimulus in the lower extremities. Reflexes are absent at the ankles. Trace at the biceps bilaterally. Plantar response is mute. No clonus. DIAGNOSTICS: A noncontrasted head CT was personally reviewed. The impression is that there is a 1 cm lacunar infarct at the right centrum semiovale of nonspecific age. Otherwise, no visible acute intracranial abnormality. No hemorrhage. MRI of the brain, with and without contrast, personally reviewed, showed several scattered small areas of restricted diffusion throughout the brain involving the cerebellum and cerebrum with the greatest concentration in the watershed areas of the cerebral white matter. These findings may indicate infarct due to low blood flow status or microemboli. There is extensive patient motion artifact during the exam. No abnormal contrast enhancement. MRA of the brain showed no obvious abnormality with patient motion artifact. MRA of the neck was a negative exam. Echocardiogram technically suboptimal study. White count is down today from yesterday. Currently 25.59. Platelets 271. PT 16.7 and INR 1.29 with a PTT of 25. Sodium 153, BUN 34, creatinine 0.8, BUN in the 70s on admission and creatinine is 1.8 on admission so that is an improvement. Blood sugar is 137-500. A1C is 9.5. AST and ALT are normal. E coli growing in the urine and streptococcus in the blood culture from 08/20. ASSESSMENT AND PLAN: 1. Multifocal infarcts as detailed above which I suspect represent microemboli. Other etiology not excluded. BPs have generally been elevated during her stay though there was one single isolated hypotensive reading a couple of days ago. I would recommend transesophageal echocardiogram to look for vegetation or thrombus. Continue telemetry monitoring. Avoid hypotension. Continue daily aspirin therapy as you are doing. 2. Global encephalopathy, multifactorial. Multifocal infarcts, sepsis and uncontrolled blood sugars are contributing factors. I would continue treating her underlying medical conditions and proceed with work up for stroke. I would follow her clinically and see if she improves. There has been a request for lumbar puncture, but since that time, MRI has revealed multifocal infarcts which could be the etiology of her encephalopathy. I think with this new finding, her afebrile status and improving leukocytosis, we can hold off on the lumbar puncture at this point and see how she does. Certainly, we can reconsider the lumbar puncture should she develop return of persistent fever or leukocytosis or other indication. Thank you for the consultation. Will follow. cc: Aysha Roman MD MTDD
[2018-08-23] MEDS: SULFACETAMIDE 10% BOTH EYES SCH ×2 (18:36→22:33)
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
[2018-08-23] MEDS: COREG PO SCH (20:56)
[2018-08-23] MEDS: NORVASC PO SCH (20:56)
[2018-08-24] MEDS: HUMALOG SUBQ SCH ×6 (01:00→21:15)
[2018-08-24] MEDS: SULFACETAMIDE 10% BOTH EYES SCH ×7 (01:00→21:06)
[2018-08-24] MEDS: D5W 1,000 ML IV SCH ×2 (01:43→08:10)
[2018-08-24] MEDS: SYNTHROID PO SCH (07:06)
[2018-08-24 07:12] LABS: BASO# 0.01 X1000 (0.0-0.2); BASO% 0.1 % (0.0-0.8); EOS# 0.08 X1000 (0.0-0.7); EOS% 0.8 % (0.0-10.0); HEMOGLOBIN 8.7 g/dL (12.0-16.0); LYMPH# 1.41 X1000 (1.2-3.4); LYMPH% 13.6 % (20.5-51.1); MCV 93.2 FL (81-99); MONO# 0.43 X1000 (0.11-0.59); MONO% 4.1 % (1.7-9.3); MPV 10.7 FL (7.4-10.4); NEUT# 8.37 X1000 (1.4-6.5); NEUT% 80.4 % (42.2-75.2); PLT 174 X1000 (130-400); RBC 3.11 XMIL (4.2-5.4)
[2018-08-24 07:17] LABS: AGAP 8; BUN 22 mg/dL (8-22); CALCIUM 8.2 mg/dL (8.8-10.2); CHLORIDE 110 mmol/L (98-107); COSMO 296; CREATININE 0.6 mg/dL (0.5-0.9); ESTIMATED GFR > 60; GLUCOSE 234 mg/dL (70-104); POTASSIUM 3.3 mmol/L (3.5-5.1); SODIUM 143 mmol/L (136-145); TCO2 25 mmol/L (25-35)
[2018-08-24] MEDS: IMDUR PO SCH (08:11)
[2018-08-24] MEDS: COREG PO SCH ×2 (08:11→20:58)
[2018-08-24] MEDS: ASPIRIN EC PO SCH (08:11)
[2018-08-24] MEDS: APRESOLINE PO SCH ×3 (08:11→16:45)
[2018-08-24] MEDS: ROCEPHIN 2 GM in NS 50 ML IV SCH ×2 (08:12→20:59)
[2018-08-24] MEDS ORDERED: KLOR-CON PO ONE (08:14)
[2018-08-24] MEDS: ZOFRAN IV PRN ×2 (08:32→16:50)
[2018-08-24] MEDS: MORPHINE IV PRN ×3 (08:32→21:49)
[2018-08-24] MEDS ORDERED: D5W 1,000 ML IV SCH (09:00)
--- NOTE | 2018-08-24 09:07 | PROGRESS NOTE ---
DATE: 08/24/2018 SUBJECTIVE: The patient is resting comfortably in bed. No acute events noted overnight. OBJECTIVE: Vital Signs: Temperature 98.6 degrees, blood pressure 140/65, heart rate 68, respirations 18, O2 saturation is 100% on 2 L nasal cannula. Output 1.8 L. Input 4.6 L. General: This is an obese female lying in bed in no acute distress. Heart: S1, S2 normal. Regular rate and rhythm. Lungs: Equal air entry bilaterally. No wheezing. No rales. Abdomen: Positive bowel sounds. Soft, nontender, nondistended. Extremities: There is 1+ edema. No cyanosis. No calf tenderness. Neurologic: The patient is awake. She is able to move all 4 extremities. Labs: White blood cell count 10, hemoglobin 8.7, hematocrit 29, platelets 174,000. Sodium 143, potassium 3.3, chloride 110, CO2 25, BUN 22, creatinine 0.6, glucose 234, calcium 8.2. ASSESSMENT AND PLAN: 1. Bacteremia secondary to streptococcus. Continue with antibiotic therapy as directed by Dr. Abarca. 2. Possible embolic stroke. Continue with management as per the neurologist. The patient will likely need a transesophageal echocardiogram. 3. Global encephalopathy. Multifactorial. Continue to treat the underlying issues. 4. Diabetic ketoacidosis. Resolved. 5. Uncontrolled insulin-dependent diabetes mellitus. We will increase the patient's long-acting insulin to 30 units subcutaneous daily. 6. Hypertension. Stable. Continue on the current antihypertensive regimen. 7. Hypokalemia. We will replace the patient's potassium. 8. Hypernatremia. Resolved. 9. Bilateral conjunctivitis. Continue with the antibiotic eyedrops. 10. Hypothyroidism. Continue on Synthroid. 11. Gastrointestinal prophylaxis. We will start the patient on omeprazole. 12. Deep vein thrombosis prophylaxis. We will start the patient on Lovenox. cc: Caren Kelley MD
[2018-08-24] MEDS: LOVENOX SUBQ SCH (09:21)
[2018-08-24] MEDS: BASAGLAR SUBQ SCH ×2 (09:21→21:11)
[2018-08-24] MEDS ORDERED: INSULIN PEN NEEDLES ONE (09:24)
[2018-08-24] MEDS ORDERED: BLISTEX MEDICATED BERRY LIP BALM TOP PRN (11:02)
--- NOTE | 2018-08-24 12:07 | CONSULTATION ---
DATE OF CONSULTATION: 08/24/2018 IMPRESSION: 1. Recent streptococcal bacteremia. Evaluation with transesophageal echocardiography requested to screen for vegetations related to possible endocarditis. 2. Patient admitted with severe hyperglycemia and leukocytosis with evidence of urinary tract infection as well as bacteremia with streptococcal species. 3. Abnormal MRI reportedly demonstrating multiple cerebrovascular accidents (CVAs). 4. Severe 3-vessel coronary atherosclerosis. Reportedly patient is not felt to be a candidate for coronary bypass surgery. 5. Type 2 diabetes mellitus, poorly controlled. 6. Obesity. 7. Obstructive sleep apnea. 8. Hypertension. 9. Hyperlipidemia. RECOMMENDATIONS: Agree with indications for transesophageal echocardiography. The rationale for pursuit of transesophageal echocardiography, nature of procedure, and potential hazards were discussed with the patient and her family. They are in agreement to proceed. HISTORY: This 62-year-old white female with past history of severe multivessel coronary atherosclerosis not felt to be minimal to coronary bypass surgery, hypertension, type 2 diabetes mellitus poorly controlled, hyperlipidemia, obesity, and obstructive sleep apnea was recently admitted with confusion, hyperglycemia, and leukocytosis. She has been found to have urinary tract infection with gram-negative species. Blood cultures have demonstrated streptococcal species. Evaluation of her encephalopathy included MRI of the brain, which reported several scattered areas of restricted diffusion throughout the brain involving the cerebrum and cerebellum, thought to possibly represent microemboli. For this reason, Cardiology is consulted to pursue transesophageal echocardiography. She is still somewhat confused, although has improved since admission with treatment of her hyperglycemia and hydration and antibiotic therapy. She is not very much aware of details surrounding her admission. She has had several evaluations for coronary disease and is reported to have severe diffuse 3-vessel coronary atherosclerosis, not felt to be amenable to coronary artery bypass surgery. She has not had any recent angina. She denies shortness of breath. PAST MEDICAL HISTORY: 1. Atherosclerotic coronary disease as outlined above. 2. Hypertension. 3. Type 2 diabetes mellitus, poorly controlled. 4. Hyperlipidemia. 5. Obesity. 6. Obstructive sleep apnea. 7. Hypothyroidism. PAST SURGICAL HISTORY: Includes appendectomy, cholecystectomy, and oophorectomy. ALLERGIES: She has no known drug allergies. MEDICATIONS PRIOR TO ADMISSION: As listed. SOCIAL HISTORY: She lives at home alone. She does not smoke or use alcohol. FAMILY HISTORY: Noncontributory beyond History of Present Illness. REVIEW OF SYSTEMS: Pulmonary: Negative. Gastrointestinal: Negative. Constitutional: Negative. The remainder of the review of systems negative/noncontributory with 14 total systems reviewed. PHYSICAL EXAMINATION: General: This is an obese older middle-aged female, who appears older than stated age in no distress. Vital signs: Blood pressure 116/50, heart rate 67. HEENT: Extraocular movements appear to be intact. Mucous membranes moist. Neck: Supple without jugular venous distention. There are no carotid bruits. Chest: Clear to auscultation bilaterally. Cardiac: Exam reveals a regular rate and rhythm without appreciable murmur or gallop. Abdomen: Soft. Bowel sounds normal. Extremities: Without edema. There are no peripheral stigmata of endocarditis. Patient does have a foot ulcer on the lateral aspect of her 5th metatarsal. She also has several early ulcer-like lesions on the toes of her left foot. Neurologic: Exam reveals her to be somewhat drowsy but responsive. She is oriented to person, place, and year. Her recollection of recent events is somewhat sketchy. She moves all 4 extremities equally well. Speech is fluent. DIAGNOSTIC STUDIES: A 12-lead EKG obtained on admission demonstrates sinus tachycardia with occasional premature ventricular complex. Minimal voltage criteria for left ventricular hypertrophy and nonspecific ST and T-wave abnormality. Baseline artifact is prominent. Laboratory data includes sodium 143, potassium 3.3, chloride 119, carbon dioxide 25, BUN 22, creatinine 0.6, glucose 234. Magnesium 2.0. White blood cell count 10.4, hematocrit 29.0, hemoglobin 8.7, platelet count 174,000. cc: Carson Gold MD
--- NOTE | 2018-08-24 13:28 | PROGRESS NOTE ---
DATE: 08/24/2018 SUBJECTIVE: No major overnight events. The patient's family is at bedside and reports the patient seems to be better today compared to yesterday. OBJECTIVE: The patient has remained afebrile in the last 24 hours. Blood pressure is 101 to 160s systolic, 40s to 70s diastolic. Pulse 60s. Ms. Dash is supine in bed. She is awake with eyes open and regards and tracks as I enter the room today. She is much more alert compared to yesterday. She is more spontaneous. She follows simple commands and commands requiring left right and digit distinction. She is oriented to location, self, family members , month. She would not know the president regardless, as she does not keep up with current events. She still said 1919 today. No language disturbance on brief bedside testing. Pupils are equal , round and reactive. Gaze is conjugate. Ocular movements are full. She moans out with pain with manipulation of her extremities, and there is some edema there. Her director of financial aid on the right is less than the left, but she reports pain. Getting an accurate assessment of power is difficult with the pain limitations that she seems to be having. DIAGNOSTIC DATA: White count has normalized today as has the sodium and BUN as well. Creatinine of 0.6. Blood sugar is 180s to 270s. ASSESSMENT AND PLAN: 1. Multifocal infarcts which may represent microemboli. Other etiology not excluded. Cardiology has seen the patient today, and a SUSAN is planned for tomorrow I believe. Continue telemetry monitoring, avoiding hypotension, and daily aspirin therapy as you are doing. 2. Global encephalopathy, multifactorial. Contributions from multifocal infarcts, sepsis, uncontrolled blood sugars. Definite improvement today compared with yesterday. I would continue to treat her medical conditions and follow her clinically for continued improvement. cc: Aysha Roman MD MTDD
--- NOTE | 2018-08-24 13:40 | INFECTIOUS DISEASE PROGRESS NO ---
DATE: 08/24/2018 PRESENT ILLNESS: The patient has a streptococcal bacteremia which I think originated from one of the wounds she has on her legs, especially on the right leg burn wound. The patient's MRI shows multiple brain infarcts or emboli which are infected from the bacteremia. There also is a possibility that the patient could have endocarditis which originated from the bacteremia also, and finally the patient yesterday, appeared to have conjunctivitis in both eyes. MEDICATION: This is the second day of treatment with Rocephin 2 g IV every 12 hours. The first day of treatment with Rocephin is the first day that the patient's blood cultures are negative, which they were 2 days ago today. The patient also is on sulfa eye drops. PHYSICAL EXAMINATION: Vital Signs: Temperature is 97 degrees, pulse 69, respirations 20, blood pressure 101/47. General: This is an ill-appearing, obese female. She seems much more alert today and she also states that her eyes are not hurting nearly as much today as they did yesterday. Head, eyes, ears, nose and Throat: She can hear my spoken words and see near objects. She does not have any white patches on her tongue. Her eyes are less injected. Neck: No stiffness. Lungs: Clear to auscultation. Cardiovascular: Heart rate is regular. Abdomen: Soft and nontender. Extremities: Patient has multiple wounds on her legs.. They all are dry and have brown eschars. There is no erythema or drainage. Neurologic: The patient is more alert today. She moved to her extremities to request. She is talking. ASSESSMENT AND PLAN: Patient has streptococcal bacteremia which I think arose from one of the wounds she has on her legs. There is a possibility that the infection has spread to the central nervous system and also a possibility that the patient has endocarditis. My plan is to continue Rocephin 2 g IV every 12 hours for at least 6 weeks. Tomorrow, a transesophageal echocardiogram is to be performed. Also, I plan to continue the patient's eyedrops for conjunctivitis which also is getting better. COMORBIDITIES: The patient has multiple wounds on her legs, which could have been the portal of entry for the streptococcal bacteremia. The patient also is a diabetic and under poor control and there is mention that the patient has medical noncompliance. cc: Alexandr Abarca MD
[2018-08-24] MEDS: LASIX IV SCH (14:54)
[2018-08-24] MEDS: ALBUMIN 25% IV SCH (14:56)
[2018-08-24] MEDS: NORVASC PO SCH (20:57)
[2018-08-24] MEDS: LIPITOR PO SCH (20:58)
[2018-08-25] MEDS: HUMALOG SUBQ SCH ×6 (00:58→21:11)
[2018-08-25] MEDS: SULFACETAMIDE 10% BOTH EYES SCH ×6 (02:59→21:12)
[2018-08-25] MEDS: LASIX IV SCH ×2 (03:15→14:28)
[2018-08-25] MEDS: SYNTHROID PO SCH (06:20)
[2018-08-25] MEDS: PRILOSEC PO SCH (06:20)
[2018-08-25] MEDS ORDERED: XYLOCAINE-MPF 2% ONE (08:29)
[2018-08-25] MEDS ORDERED: DIPRIVAN 1% ONE (08:29)
[2018-08-25] MEDS: ALBUMIN 25% IV SCH (08:30)
[2018-08-25] MEDS: BASAGLAR SUBQ SCH ×2 (08:31→21:13)
[2018-08-25] MEDS: LOVENOX SUBQ SCH (08:31)
[2018-08-25] MEDS: ROCEPHIN 2 GM in NS 50 ML IV SCH ×2 (08:31→21:13)
[2018-08-25 08:54] LABS: INR 1.08; PROTIME 14.8 Seconds (11.0-16.0)
[2018-08-25 08:56] LABS: BASO# 0.01 X1000 (0.0-0.2); BASO% 0.1 % (0.0-0.8); EOS% 0.7 % (0.0-10.0); HEMATOCRIT 27.4 % (37.0-47.0); HEMOGLOBIN 8.5 g/dL (12.0-16.0); IMM GRAN# 0.24 X1000 (0.0-0.04); IMM GRAN% 1.6 % (0.0-0.5); LYMPH% 5.3 % (20.5-51.1); MCH 28.5 PG (27-31); MCV 91.9 FL (81-99); MONO# 0.67 X1000 (0.11-0.59); MONO% 4.5 % (1.7-9.3); MPV 10.2 FL (7.4-10.4); NEUT# 13.19 X1000 (1.4-6.5); NEUT% 87.8 % (42.2-75.2); PLT 241 X1000 (130-400); RBC 2.98 XMIL (4.2-5.4); RDW 15.1 % (11.5-14.5); WBC 15.01 X1000 (4.8-10.8)
[2018-08-25] MEDS: APRESOLINE PO SCH ×3 (09:06→16:45)
[2018-08-25] MEDS: COREG PO SCH ×2 (09:07→21:10)
[2018-08-25] MEDS: ASPIRIN EC PO SCH (09:07)
[2018-08-25] MEDS: IMDUR PO SCH (09:07)
[2018-08-25 09:16] LABS: MAGNESIUM 1.9 mg/dL (1.5-2.7); PHOSPHORUS 3.4 mg/dL (2.7-4.5)
[2018-08-25 09:22] LABS: AGAP 10; BUN 24 mg/dL (8-22); CHLORIDE 106 mmol/L (98-107); COSMO 291; CREATININE 0.8 mg/dL (0.5-0.9); ESTIMATED GFR > 60; GLUCOSE 140 mg/dL (70-104); POTASSIUM 3.9 mmol/L (3.5-5.1); SODIUM 143 mmol/L (136-145); TCO2 27 mmol/L (25-35)
[2018-08-25 09:37] LABS: BANDS 8 % (0-1); LYMPHS 10 % (21-51); MONO 2 % (1-9); SEGS 78 % (42-75)
[2018-08-25 09:40] LABS: HYPOCHROM 1+
[2018-08-25] MEDS ORDERED: ANESTHESIA PB SET 88 IN 5742 ONE (09:57)
[2018-08-25] MEDS ORDERED: NS 1,000 ML ONE (09:57)
[2018-08-25] MEDS ORDERED: CLAVE TWINSITE 32 IN 11959 ONE (09:57)
[2018-08-25] MEDS ORDERED: NS 250 ML ONE (10:06)
[2018-08-25] MEDS ORDERED: XYLOCAINE 2% VISCOUS ONE (10:15)
--- NOTE | 2018-08-25 10:50 | ECHO REPORT ---
ORDER DATE: 08/25/2018 DESCRIPTION OF PROCEDURE: The patient was brought to the cardiac catheterization laboratory. Transesophageal echocardiogram performed to rule out endocarditis. Informed consent was obtained from the patient. Intravenous access was established. The patient's oropharynx was anesthetized using Cetacaine spray. A transesophageal probe was easily passed into the esophagus. Ultrasound pictures were obtained. Anesthesia was present. Propofol was given. Please see detailed anesthesia records. There were no complications. FINDINGS: 1. Normal left ventricular cavity size. Estimated ejection fraction of 60%. 2. Aortic valve leaflets were mildly sclerosed, trileaflet. 3. Pulmonic valve was normal. 4. Mitral valve leaflets were normal. 5. Tricuspid valve was normal. 6. There is mild mitral regurgitation. 7. There are 2 jets across the mitral valve which revealed moderate to severe eccentric mitral regurgitation. 8. There is no aortic stenosis or regurgitation. 9. There is mild tricuspid regurgitation. 10. There is left atrial enlargement. 11. There is no pericardial effusion. There is no obvious intracardiac mass or thrombus seen. CONCLUSIONS: 1. Normal left ventricular cavity size. Estimated ejection fraction of 60%. 2. There are 2 jets of mitral regurgitation. There is moderate to severe eccentric mitral regurgitation. 3. There is no obvious vegetation or thrombus noted. cc: MD Chrissie Bower PA
--- NOTE | 2018-08-25 13:10 | PROGRESS NOTE ---
DATE: 08/25/2018 SUBJECTIVE: Dr. Roman saw Ms. Dash for initial neurology consultation. She has imaging evidence of multifocal infarctions. SUSAN showed no definite source of embolus. She continues afebrile. WBC count is down to 15,000. Blood sugars have stabilized in the mid 100s. PHYSICAL EXAMINATION: General: On exam, Ms. Dash is awake and mostly alert and attentive. She may be showing some evidence of resolving sedation, having just returned from SUSAN. Speech is not significantly dysarthric. Language function is intact. She is oriented. She had appropriate conversation with me and with family. She expressed desire to go home. ASSESSMENT AND PLAN: I do not have any new suggestion from Neurology standpoint. We might continue to follow clinically and if she improves, we will not have other suggestions. If she becomes febrile or deteriorates neurologically, we might again consider LP. Thanks for asking Neurology to see Ms. Dash. cc: Melida Sandhu III, MD MTDChris
[2018-08-25] MEDS: MORPHINE IV PRN ×2 (13:22→21:11)
--- NOTE | 2018-08-25 14:26 | INFECTIOUS DISEASE PROGRESS NO ---
DATE: 08/25/2018 PRESENT ILLNESS: Ms. Sykes has a streptococcal bacteremia that most likely originated from her lower extremity wounds. SUSAN done today shows no evidence of mass or thrombus. The brain MRI shows abnormalities which may indicate infarction or microemboli. There is also a conjunctivitis bilaterally which is improving. She also has an E. Coli urinary tract infection. MEDICATIONS: She is receiving Rocephin 2 g IV every 12 hours and Sulamyd ophthalmic drops every 4 hours. PHYSICAL EXAMINATION: Vital Signs: Temperature is 98.6 degrees, pulse rate 92 , respiratory rate 18, blood pressure 150/74. O2 saturation is 94% on room air. General: This is a chronically ill- appearing, obese, middle-aged female. She is sitting up in bed, currently in no acute distress. HEENT: Atraumatic, normocephalic. Oral mucous membranes are pink and moist. Cardiovascular: Heart rate and rhythm are regular. Normal sinus rhythm on the monitor. Pedal and radial pulses are +2 bilaterally. Generalized edema is noted, 1+ to 2+ to the hands and mild to the right lower extremity. Respiratory: Lung sounds are clear in the upper lobes. Diminished in the bases. Abdomen: Soft, obese, nontender. Bowel sounds are active. Integumentary: There are dry eschars noted to her feet and toes bilaterally. She also has a PICC line in her left upper arm, the site is without edema, erythema, or drainage. Neurologic: She is awake, alert but nonverbal at this time. She will follow commands and move her extremities very slowly and minimally. LABORATORY AND X-RAY: Today her white count is 15.1, hemoglobin 8.5, platelet count 241,000. Creatinine is 0.8. Estimated GFR is greater than 60. Her previous blood cultures have grown strep dysgalactiae, and her previous urine culture grew Escherichia coli. ASSESSMENT AND PLAN: Ms. Camp is being treated for a streptococcal bacteremia and an Escherichia coli urinary tract infection. Today there is some purulent drainage from her foot wounds bilaterally, so we will culture these. The patient sees Dr. Calhoun for treatment of her foot wounds, so we will consult him to see her when he is able. The SUSAN has ruled out endocarditis; however, there is a possibility of spread of infection to the central nervous system. She will require 6 weeks of treatment with Rocephin. Based on her sterile blood cultures, today is day 3. Rocephin will also cover the E. Coli in her urinary tract. The patient also has bilateral conjunctivitis which seems to be improving, so we will also continue eye drops as ordered. These plans have been discussed with and recommended by Dr. Abarca. COMORBIDITIES: For Ms. Dash include medical noncompliance with poor diabetes mellitus control, coronary artery disease, and chronic diabetic foot ulcers. Dictated by GEORGES Goyal for Alexandr Abarca MD This chart was documented by, GEORGES Goyal and accurately reflects the services performed, treatment plan and medical decisions as attested by the providers signature Alexandr Abarca MD. cc: Alexandr Abarca MD [facility]ENTER[facility]
--- NOTE | 2018-08-25 19:05 | PROGRESS NOTE ---
DATE: 08/25/2018 SUBJECTIVE: The patient is resting comfortably in bed. She is a little sleepy this morning. She does have increased swelling in her upper extremities. OBJECTIVE: Vital Signs: Temperature 98.4 degrees, blood pressure 153/72, heart rate 94, respirations 19, and O2 saturation 95% on room air. General: This is an obese female lying in bed in no acute distress. Heart: S1, S2 normal. Tachycardic. Lungs: Equal air entry bilaterally. No wheezing. No rales. Abdomen: Positive bowel sounds. Soft, nontender, and nondistended. Extremities: 2+ edema in the upper extremities, 1+ in the lower extremities. Neurologic: The patient is awake, but does not often fall asleep pretty quickly. She is able to move all 4 extremities. LABORATORY: White blood cell count 15, hemoglobin 8.5, hematocrit 27, and platelets 241,000. Sodium 143, potassium 3.9, chloride 106, CO2 27, BUN 24, creatinine 0.8, glucose 140 and calcium 8. ASSESSMENT AND PLAN: 1. Bacteremia secondary to Streptococcus. Continue with antibiotic therapy. 2. Acute cerebrovascular accident. Continue with supportive care. The SUSAN was negative for thrombus or vegetation. 3. Global encephalopathy. Multifactorial. We will continue to treat the underlying infection. 4. DKA. Resolved. 5. Insulin-dependent diabetes mellitus. The patient's blood sugars are improved. Continue on the current insulin regimen. 6. Obesity. Aware. 7. Hypothyroidism. Continue on Synthroid. 8. Bilateral conjunctivitis. Continue with antibiotic eyedrops. 9. Hypertension. Stable. 10. GI prophylaxis. Continue on omeprazole. 11. Deep vein thrombosis prophylaxis: Continue on Lovenox. 12. Disposition. The patient is stable for transfer to the medical floor. We will consult physical therapy and occupational therapy. cc: Caren Kelley MD [facility]
[2018-08-25] MEDS: MEGACE LIQUID PO SCH (21:07)
[2018-08-25] MEDS: LIPITOR PO SCH (21:09)
[2018-08-25] MEDS: NORVASC PO SCH (21:10)
[2018-08-26] MEDS ORDERED: CALMOSEPTINE OINTMENT TOP PRN (00:34)
[2018-08-26] MEDS: HUMALOG SUBQ SCH ×6 (01:26→21:30)
[2018-08-26] MEDS: SULFACETAMIDE 10% BOTH EYES SCH ×6 (01:27→21:30)
[2018-08-26] MEDS: LASIX IV SCH ×2 (04:05→15:41)
[2018-08-26 05:27] LABS: AGAP 5; ALBUMIN 3.3 g/dL (3.5-5.0); ALKALINE PHOSPHATASE 68 U/L (32-104); BUN 24 mg/dL (8-22); CALCIUM 8.3 mg/dL (8.8-10.2); CHLORIDE 104 mmol/L (98-107); COSMO 292; CREATININE 0.8 mg/dL (0.5-0.9); ESTIMATED GFR > 60; GLUCOSE 191 mg/dL (70-104); GOT 21 U/L (10-30); GPT 16 U/L (10-36); SODIUM 142 mmol/L (136-145); TCO2 33 mmol/L (25-35); TOTAL BILIRUBIN 0.44 mg/dL (0.20-1.00); TOTAL PROTEIN 6.6 g/dL (6.3-8.3)
[2018-08-26] MEDS: SYNTHROID PO SCH (06:04)
[2018-08-26] MEDS: PRILOSEC PO SCH (06:04)
--- NOTE | 2018-08-26 06:26 | Diag Imaging Result Doc PS360 ---
CHEST-PORTABLE - 08/26/2018 INDICATION: dyspnea COMPARISON: 08/20/2018 FINDINGS: There is a left PICC line in good position with the catheter tip at the upper SVC. There is some trace linear atelectasis at the lingula. No focal infiltrates, pneumothorax, or pleural effusion. Heart size is normal. IMPRESSION: No acute disease. Electronically signed by Chau Zarate 08/26/2018 6:24 AM
[2018-08-26 06:39] LABS: BASO# 0.03 X1000 (0.0-0.2); BASO% 0.2 % (0.0-0.8); EOS# 0.12 X1000 (0.0-0.7); EOS% 0.9 % (0.0-10.0); HEMATOCRIT 27.3 % (37.0-47.0); HEMOGLOBIN 8.6 g/dL (12.0-16.0); IMM GRAN# 0.52 X1000 (0.0-0.04); IMM GRAN% 3.7 % (0.0-0.5); LYMPH# 1.52 X1000 (1.2-3.4); LYMPH% 10.8 % (20.5-51.1); MCH 28.6 PG (27-31); MCHC 31.5 g/dL (33-37); MCV 90.7 FL (81-99); MONO# 0.97 X1000 (0.11-0.59); MONO% 6.9 % (1.7-9.3); MPV 10.5 FL (7.4-10.4); NEUT# 10.92 X1000 (1.4-6.5); NEUT% 77.5 % (42.2-75.2); PLT 270 X1000 (130-400); RBC 3.01 XMIL (4.2-5.4); RDW 15.3 % (11.5-14.5); WBC 14.08 X1000 (4.8-10.8)
[2018-08-26] MEDS ORDERED: KLOR-CON PO ONE (08:00)
[2018-08-26] MEDS: ALBUMIN 25% IV SCH (08:06)
[2018-08-26] MEDS: ROCEPHIN 2 GM in NS 50 ML IV SCH ×2 (08:06→21:30)
[2018-08-26] MEDS: COREG PO SCH ×2 (08:07→21:30)
[2018-08-26] MEDS: MEGACE LIQUID PO SCH ×2 (08:07→21:30)
[2018-08-26] MEDS: BASAGLAR SUBQ SCH ×2 (08:07→21:30)
[2018-08-26] MEDS: LOVENOX SUBQ SCH (08:07)
[2018-08-26] MEDS: ASPIRIN EC PO SCH (08:07)
[2018-08-26] MEDS: APRESOLINE PO SCH ×3 (08:07→17:53)
[2018-08-26] MEDS: IMDUR PO SCH (08:08)
[2018-08-26] MEDS: MORPHINE IV PRN ×2 (09:46→15:42)
--- NOTE | 2018-08-26 09:53 | PROGRESS NOTE ---
DATE: 08/26/2018 SUBJECTIVE: The patient is resting comfortably in bed. No acute events noted overnight. OBJECTIVE: Vital Signs: Temperature 98 degrees, blood pressure 157/77, heart rate 79, respirations 19, O2 saturation is 97% on room air. General: This is an obese female lying in bed, in no acute distress. Heart: S1, S2 normal. Regular rate and rhythm. Lungs: Clear to auscultation bilaterally. No wheezing. No rales. No rhonchi. Abdomen: Positive bowel sounds. Soft, obese, nontender, nondistended. Extremities: Trace pedal edema. No cyanosis. No calf tenderness. Neurologic: The patient is lethargic but will awaken when her name is called. She is able to move all 4 extremities. Labs: White blood cell count 14, hemoglobin 8.6, hematocrit 27, platelets 270, 000. Sodium 142, potassium 3, chloride 104, CO2 33, BUN 24, creatinine 0.8, glucose 191. Chest x-ray shows no acute disease. ASSESSMENT AND PLAN: 1. Bacteremia secondary to Streptococcus equisimilis. Continue with the current antibiotic regimen as directed by Dr. Abarca. So far, the repeat blood cultures are negative. 2. Acute cerebrovascular accident. Continue with supportive care. Continue on aspirin and Lipitor. OT and PT to be consulted. 3. Diabetic ketoacidosis. Resolved. 4. Insulin-dependent diabetes mellitus. Continue on glargine plus a Humalog sliding scale. 5. Hypothyroidism. Continue on Synthroid. 6. Obesity. Aware. 7. Hypertension. Stable. 8. Bilateral conjunctivitis. Continue with antibiotic eyedrops. 9. Hypokalemia. We will replace the patient's potassium. 10. Deep vein thrombosis prophylaxis. Continue on Lovenox. 11. Disposition. The patient is stable for transfer to the medical floor on telemetry. cc: MD NAWAF Barajas
--- NOTE | 2018-08-26 12:13 | PROGRESS NOTE ---
DATE: 08/26/2018 Ms. Dash is awake, alert, oriented. Speech is a little bit feeble but not definitely dysarthric. Left hemiparesis is present. She has left hemianopia. She has good power in the right arm. She continues afebrile. WBC count is down to 14,000. I do not have any new thought or new suggestion from neurology standpoint today. Thanks for asking us to see Ms. Dash. cc: MD NAWAF Cabrera III
--- NOTE | 2018-08-26 12:48 | GENERAL SURGERY CONSULTATION ---
DATE: 08/26/2018 REASON FOR CONSULTATION: Bilateral foot wounds. HISTORY OF PRESENT ILLNESS: This is a 62-year-old female who had previously been seen by me last fall at [facility] for foot wounds. We did x-rays and an MRI at that time which did not show any osteomyelitis. She was given wound care instructions and instructed to follow up with me in my wound care clinic. She did do that recently, a few weeks ago, where the wounds were debrided. She was prescribed Santyl ointment. I do suspect that she has been noncompliant. She has been readmitted now with altered mental status which has improved, as well as uncontrolled diabetes, bacteremia, and possible microemboli or infarctions of her brain. I have been asked to see her for her feet. Reportedly, the nurses have seen some purulent discharge on both feet. PAST MEDICAL HISTORY: Coronary artery disease, hypertension, type 2 diabetes, medical noncompliance, hyperlipidemia, diabetic foot ulcers. PAST SURGICAL HISTORY: Cholecystectomy, appendectomy, oophorectomy. FAMILY HISTORY: Reviewed and noncontributory. SOCIAL HISTORY: She quit smoking a year ago. No alcohol or illicit drug use. ALLERGIES: No known drug allergies. CURRENT MEDICATIONS: Ofirmev, Norvasc, aspirin, Lipitor, Coreg, Rocephin, Lovenox, Lasix, hydralazine, glargine, Imdur, labetalol, Synthroid, Megace, Prilosec. REVIEW OF SYSTEMS: Ten systems reviewed and negative except as noted above. PHYSICAL EXAMINATION: Vital Signs: Temperature 98, pulse 87, blood pressure 143/65. General: She is awake and alert, seems oriented x3. No acute distress. CV: Regular rate and rhythm. Respiratory: Bilateral breath sounds. No work of breathing. Extremities: There is trace pedal edema. Skin: The right lateral foot wound has a mostly dry eschar with minimal slough drainage from under the eschar. I did not detect any judd pus or any tracking to the bone. There is no foul odor. Left second and third toes have dry calluses. I do not see any drainage from them. There is no surrounding erythema. ASSESSMENT AND PLAN: A 62-year-old female with diabetic foot ulcers and bacteremia. I am not sure whether the bacteremia is related to the foot ulcers but we will go ahead and sharply debride and reapply Santyl to the wounds daily while she is here. cc: Manjit Calhoun MD
[2018-08-26] MEDS: SANTYL OINT TOP SCH (15:42)
--- NOTE | 2018-08-26 17:06 | Extremity Venous Study ---
PROCEDURE NAME: Venous U/S Right Arm - 08/25/2018 REFERRING PHYSICIAN: Caren Kelley MD. INTERPRETING PHYSICIAN: Luis Cabrera MD. PL SQL PROGRAMMER: Maya Lakhani RVT. SUMMARY: The right internal jugular, subclavian, axillary, brachial, basilic, cephalic veins are imaged in the right upper extremity. The left subclavian is imaged for comparison purposes. All veins are compressible. No intraluminal clot is seen. INTERPRETATION: No evidence of deep or superficial venous thrombosis in the right upper extremity in the veins identified. cc: MD Caren Harkins MD
--- NOTE | 2018-08-26 18:00 | INFECTIOUS DISEASE PROGRESS NO ---
DATE: 08/26/2018 PRESENT ILLNESS: The patient has streptococcal bacteremia which I think most likely originated from her foot wounds. She has a brain MRI shows abnormalities compatible with infarction or microemboli. The patient also has conjunctivitis and an Escherichia coli urinary tract infection. MEDICATIONS: The patient is receiving Rocephin 2 g IV every 12 hours. This is day 4 of treatment with Rocephin, with day 1 being the first day that the blood cultures are sterile. The patient also is getting sulfa ophthalmic drops for her conjunctivitis. PHYSICAL EXAMINATION: Vital Signs: Temperature is 98.3 degrees, pulse 82, respirations 18, blood pressure 143/65. General: This is a chronically ill-appearing, obese, middle- aged female. She seems to be somewhat in a delirium today as she thrashes a little bit in her bed. Head, eyes, ears, nose, and throat: There is no drainage from the nose or ears. The patient's eyes still look injected. Neck: No meningismus. Lungs: Clear to auscultation. Cardiovascular: Heart rate is regular. Extremities: Patient has a PICC in her left arm. The site is not swollen or erythematous. Neurologic: The patient seems to be in a delirium. She does not talk. She does not follow requests to move her extremities. DIAGNOSTIC STUDIES: The patient's CBC today shows a white count of 14,080, hemoglobin 8.6, and platelet count 270,000. Creatinine is 0.8, GFR is greater than 60. Liver function studies are normal. Blood and foot cultures are negative. Chest x-ray shows no acute disease. ASSESSMENT AND PLAN: Patient is being treated for streptococcal bacteremia and an Escherichia coli urinary tract infection. In addition, the patient has purulent leg wounds. Dr. Calhoun has seen the patient and has debrided the wounds. The streptococcus may have have spread to the patient's brain hematogenously. My plan is to continue Rocephin for 6 weeks because, as mentioned above, she may have a brain infection from the bacteremia. I plan to continue treatment for the conjunctivitis until the eyes are not injected. COMORBIDITIES: 1. The patient has diabetes mellitus which is not controlled well. 2. She also has coronary artery disease. 3. Chronic diabetic foot ulcers. 4. She has a history of medical noncompliance. cc: Alexandr Abarca MD [facility]
[2018-08-26] MEDS: NORVASC PO SCH (21:30)
[2018-08-26] MEDS: LIPITOR PO SCH (21:30)
[2018-08-27] MEDS: LASIX IV SCH ×2 (01:52→15:20)
[2018-08-27] MEDS: SULFACETAMIDE 10% BOTH EYES SCH ×6 (01:53→23:47)
[2018-08-27] MEDS: HUMALOG SUBQ SCH ×6 (01:53→22:26)
[2018-08-27] MEDS: SYNTHROID PO SCH (06:17)
[2018-08-27] MEDS: PRILOSEC PO SCH (06:17)
[2018-08-27] MEDS: COREG PO SCH ×2 (08:39→22:28)
[2018-08-27] MEDS: MEGACE LIQUID PO SCH ×2 (08:39→22:27)
[2018-08-27] MEDS: ASPIRIN EC PO SCH (08:39)
[2018-08-27] MEDS: LOVENOX SUBQ SCH (08:39)
[2018-08-27] MEDS: ROCEPHIN 2 GM in NS 50 ML IV SCH ×2 (08:39→22:26)
[2018-08-27] MEDS: IMDUR PO SCH (08:39)
[2018-08-27] MEDS: BASAGLAR SUBQ SCH ×2 (08:40→22:27)
[2018-08-27] MEDS: SANTYL OINT TOP SCH (08:40)
[2018-08-27] MEDS: APRESOLINE PO SCH ×3 (08:40→16:58)
[2018-08-27] MEDS: MORPHINE IV PRN ×2 (08:53→22:40)
[2018-08-27 09:36] LABS: HEMATOCRIT 24.5 % (37.0-47.0); HEMOGLOBIN 7.7 g/dL (12.0-16.0); MCH 28.6 PG (27-31); MCHC 31.4 g/dL (33-37); MCV 91.1 FL (81-99); MPV 10.1 FL (7.4-10.4); RBC 2.69 XMIL (4.2-5.4); RDW 15.2 % (11.5-14.5); WBC 14.6 X1000 (4.8-10.8)
[2018-08-27 10:02] LABS: AGAP 13; BUN 23 mg/dL (8-22); CALCIUM 8.2 mg/dL (8.8-10.2); CHLORIDE 101 mmol/L (98-107); COSMO 284; CREATININE 0.7 mg/dL (0.5-0.9); ESTIMATED GFR > 60; GLUCOSE 121 mg/dL (70-104); SODIUM 140 mmol/L (136-145); TCO2 26 mmol/L (25-35)
[2018-08-27 10:06] LABS: POTASSIUM 3.2 mmol/L (3.5-5.1)
--- NOTE | 2018-08-27 13:58 | PROGRESS NOTE ---
DATE: 08/27/2018 SUBJECTIVE: Ms. Dash reports no significant headache. She had temperature 100.1 degrees last night, but afebrile now. WBC count stable at 14,600 today. OBJECTIVE: She is awake and alert. Speech is not significantly dysarthric. She did well on bedside testing of language function. She used her right arm more purposefully than the left but showed good power in the left arm. She has poor vision globally, but still relative left hemianopia. I reviewed the imaging findings. The MRI scan on 08/23/2018 showed scattered small ischemic changes bilaterally, largest in the right hemisphere. That lesion in the right hemisphere was apparent on the prior CT scan. We might consider repeat imaging later, depending on her clinical course, but I do not think that is necessary now. ASSESSMENT: I do not have any new suggestion from a Neurology standpoint. I hope she will continue to improve. Thanks for asking us to see Ms. Dash. cc: MD NAWAF Cabrera III
[2018-08-27] MEDS ORDERED: KLOR-CON PO ONE (14:45)
--- NOTE | 2018-08-27 17:18 | PROGRESS NOTE ---
DATE: 08/27/2018 SUBJECTIVE: The patient is resting comfortably in bed. She has no complaints at this time. OBJECTIVE: Vital Signs: Temperature 97.8 degrees, blood pressure 115/43, heart rate 73, respirations 20, O2 saturation 98% on room air. General: This is a chronically ill-appearing elderly female lying in bed. Heart: S1, S2 normal. Regular rate and rhythm. Lungs: Clear to auscultation bilaterally. Abdomen: Positive bowel sounds. Soft, obese, nontender, nondistended. Extremities: The feet are wrapped in clean dry dressing. Neuro: The patient is alert and oriented, she is able to move all 4 extremities. LABS: White blood cell count 14, hemoglobin 7.7, hematocrit 24, platelets 286, 000, sodium 140, potassium 3.2, chloride 101, CO2 26, BUN 23, creatinine 0.7, glucose 121, calcium 8.2. ASSESSMENT AND PLAN: 1. Bacteremia secondary to Streptococcus. Continue with the current antibiotic regimen as directed by Dr. Abarca. 2. Bilateral foot wounds status post debridement. The wound culture is growing gram-positive cocci. Continue with antibiotic therapy as directed by Dr. Abarca. 3. Acute cerebrovascular accident. Continue on aspirin and Lipitor. Occupational therapy and physical therapy are working with the patient. 4. Diabetic ketoacidosis. Resolved. 5. Hypothyroidism. Continue on Synthroid. 6. Insulin-dependent diabetes mellitus. Continue on glargine plus Humalog sliding scale. 7. Bilateral conjunctivitis. Continue with antibiotic eye drops. 8. Hypertension. Stable. 9. Anemia. Patient's hemoglobin and hematocrit have dropped today, will continue to monitor closely. Will transfuse if the patient's hemoglobin is less than 7. 10. Hypokalemia. Will replace the potassium. 11. Obesity. Aware. 12. Deep vein thrombosis prophylaxis. Continue on Lovenox. cc: MD NAWAF Barajas
[2018-08-27] MEDS: LIPITOR PO SCH (22:28)
[2018-08-27] MEDS: NORVASC PO SCH (22:28)
--- NOTE | 2018-08-28 00:03 | INFECTIOUS DISEASE PROGRESS NO ---
DATE: 08/27/2018 PRESENT ILLNESS: The patient has streptococcal bacteremia, which I think arose from the patient's foot wounds. She also has an E coli urinary tract infection and conjunctivitis. MEDICATIONS: This is the 5th day of treatment with Rocephin with day 1 being the first day that the blood cultures are sterile. The patient is receiving sulfa eye drops for her conjunctivitis. This is the 4th day that the patient is having sulfa eye drops. PHYSICAL EXAMINATION: Vital Signs: Temperature is 97.9 degrees, pulse 82, respirations 14, blood pressure 137/55. General: This is a chronically ill-appearing, middle-aged female. She is alert and talking coherently today. Head/eyes/ears/nose/throat: No drainage noted from the nose or ears. She does not have any white patches on her tongue. Neck: No stiffness. Lungs: Clear to auscultation. Cardiovascular: Heart rate is regular. Abdomen: Soft and nontender. Extremities: Patient has a PICC in her left arm. The site is not erythematous or draining. Neurologic: The patient is awake. She is talking coherently. She can move her extremities. LAB AND RADIOGRAPHIC STUDY: The patient's CBC shows a white count of 14,600, hemoglobin 7.7, and platelet count 286,000. Creatinine is 0.7. GFR is greater than 60. Both feet are growing gram- positive cocci. ASSESSMENT AND PLAN: I plan to continue with the patient's Rocephin pending the results of the culture from both feet which are growing gram-positive cocci. Also, I plan to continue the sulfa eye drops as well. COMORBIDITIES: The patient has diabetes mellitus which is not well controlled. She has chronic diabetic foot ulcers and a history of medical noncompliance. cc: Alexandr Abarca MD
[2018-08-28] MEDS: HUMALOG SUBQ SCH ×6 (00:45→21:39)
[2018-08-28] MEDS: SULFACETAMIDE 10% BOTH EYES SCH ×6 (03:16→21:37)
[2018-08-28] MEDS: LASIX IV SCH ×2 (03:16→16:31)
[2018-08-28] MEDS: MORPHINE IV PRN ×3 (05:06→21:39)
[2018-08-28] MEDS: SYNTHROID PO SCH (05:59)
[2018-08-28] MEDS: PRILOSEC PO SCH (05:59)
[2018-08-28 07:41] LABS: BASO# 0.02 X1000 (0.0-0.2); BASO% 0.1 % (0.0-0.8); EOS# 0.16 X1000 (0.0-0.7); HEMOGLOBIN 7.2 g/dL (12.0-16.0); IMM GRAN# 0.19 X1000 (0.0-0.04); IMM GRAN% 1.2 % (0.0-0.5); LYMPH# 2.04 X1000 (1.2-3.4); LYMPH% 12.8 % (20.5-51.1); MCH 28.5 PG (27-31); MCHC 31.3 g/dL (33-37); MCV 90.9 FL (81-99); MONO# 0.77 X1000 (0.11-0.59); MONO% 4.8 % (1.7-9.3); MPV 10.1 FL (7.4-10.4); NEUT# 12.77 X1000 (1.4-6.5); NEUT% 80.1 % (42.2-75.2); PLT 335 X1000 (130-400); RBC 2.53 XMIL (4.2-5.4); RDW 15.3 % (11.5-14.5); WBC 15.95 X1000 (4.8-10.8)
[2018-08-28 08:08] LABS: AGAP 12; BUN 30 mg/dL (8-22); CALCIUM 8.4 mg/dL (8.8-10.2); CHLORIDE 101 mmol/L (98-107); COSMO 292; CREATININE 0.8 mg/dL (0.5-0.9); ESTIMATED GFR > 60; GLUCOSE 176 mg/dL (70-104); POTASSIUM 3.4 mmol/L (3.5-5.1); SODIUM 141 mmol/L (136-145); TCO2 28 mmol/L (25-35)
[2018-08-28 08:11] LABS: MAGNESIUM 1.9 mg/dL (1.5-2.7); PHOSPHORUS 4.2 mg/dL (2.7-4.5)
[2018-08-28] MEDS ORDERED: KLOR-CON PO ONE (08:57)
[2018-08-28] MEDS: ROCEPHIN 2 GM in NS 50 ML IV SCH ×2 (09:21→19:49)
[2018-08-28] MEDS: APRESOLINE PO SCH ×3 (09:27→16:39)
[2018-08-28] MEDS: COREG PO SCH ×2 (09:27→21:39)
[2018-08-28] MEDS: IMDUR PO SCH (09:28)
[2018-08-28] MEDS: ASPIRIN EC PO SCH (09:28)
[2018-08-28] MEDS: LOVENOX SUBQ SCH (09:33)
[2018-08-28] MEDS: BASAGLAR SUBQ SCH ×2 (09:37→21:38)
[2018-08-28] MEDS: MEGACE LIQUID PO SCH ×2 (09:41→21:39)
[2018-08-28] MEDS: SANTYL OINT TOP SCH (10:07)
--- NOTE | 2018-08-28 15:19 | GENERAL SURGERY PROGRESS NOTE ---
DATE: 08/28/2018 SUBJECTIVE: The patient is doing okay. No acute events overnight. OBJECTIVE: She is afebrile. Vital signs are stable. General: She is awake, alert, oriented x3. No acute distress. Extremities: The right foot wound has bright red bleeding with dressing changes but that is controlled with pressure dressings. There appears to be some granulation tissue forming. The left toe wounds are stable without drainage and minimal bleeding. MICROBIOLOGY: The wound cultures are growing MRSA. ASSESSMENT AND PLAN: A 62-year-old female with diabetic foot ulcers status post debridement with methicillin-resistant Staphylococcus aureus infection of the feet. She is on Rocephin. We will await Dr. Abarca' change of antibiotics but methicillin-resistant Staphylococcus aureus appears to be susceptible to Bactrim and clindamycin. She can continue her Santyl ointment to the wounds daily with dressing changes and follow up with me in the [facility] at discharge. cc: Manjit Calhoun MD
--- NOTE | 2018-08-28 15:46 | PROGRESS NOTE ---
DATE: 08/28/2018 SUBJECTIVE: The patient is resting comfortably in bed. No acute events noted overnight. Her left arm appears to be swollen. She has a PICC line in place. OBJECTIVE: Vital Signs: Temperature 97.4 degrees, blood pressure 121/51, heart rate 81, respirations 19, O2 saturation 98% on room air. General: This is a morbidly obese female lying in bed in no acute distress. Heart: S1, S2 normal. Regular rate and rhythm. Lungs: Equal air entry bilaterally. No crackles. No rales. Abdomen: Positive bowel sounds. Soft, nontender, nondistended. Extremities: 3+ edema in the left arm, 1+ in the lower extremities. Neurologic: The patient is awake and alert. LABS: White blood cell count 15, hemoglobin 7.2, hematocrit 23, platelets 335,000, sodium 141, potassium 3.4, chloride 101, CO2 28, BUN 30, creatinine 0.8, glucose 176, magnesium 1.9, phosphorus 4.2. ASSESSMENT AND PLAN: 1. Bacteremia secondary to Streptococcus. Continue with the current antibiotic regimen. 2. Bilateral foot wounds status post debridement. Continue with wound care. The wound culture grew out staphylococcus. 3. Acute cerebrovascular accident. Continue with aspirin and Lipitor. 4. Hypothyroidism. Continue on Synthroid. 5. DKA. Resolved. 6. Bilateral conjunctivitis. Improved. 7. Insulin-dependent diabetes mellitus, uncontrolled. Continue on glargine and sliding scale insulin. 8. Hypokalemia. Will replace the patient's potassium. 9. Anemia. Will check iron studies. 10. Deep vein thrombosis prophylaxis. Continue on Lovenox. cc: Caren Kelley MD
--- NOTE | 2018-08-28 20:55 | OPERATIVE NOTE ---
PROCEDURE DATE: 08/26/2018 PREOPERATIVE DIAGNOSIS: Diabetic foot ulcers. POSTOPERATIVE DIAGNOSIS: Diabetic foot ulcers. OPERATION: Debridement of skin and subcutaneous tissue, less than 20 square cm. SURGEON: Manjit Calhoun MD ANESTHESIA: None. ESTIMATED BLOOD LOSS: 3 mL. COMPLICATIONS: None apparent. SPECIMENS: None. FINDINGS: The right lateral foot ulcer measured 3 x 2 cm and contained necrotic soft tissue and slough, but no exposed bone. The left 2nd toe ulcer measured 2 x 0.5 cm and contained dry callus. PROCEDURE: She was kept in her hospital bed. The wounds were cleansed with Betadine. A knife was used to sharply excise and debride the nonviable tissue back to healthy bleeding tissue. A pressure dressing was applied. There were no apparent complications. cc: Manjit Calhoun MD
[2018-08-28] MEDS: NORVASC PO SCH (21:39)
[2018-08-28] MEDS: LIPITOR PO SCH (21:39)
[2018-08-29] MEDS: HUMALOG SUBQ SCH ×6 (01:47→20:36)
[2018-08-29] MEDS: SULFACETAMIDE 10% BOTH EYES SCH ×7 (01:48→22:46)
[2018-08-29] MEDS: LASIX IV SCH ×2 (01:48→15:01)
[2018-08-29] MEDS: MORPHINE IV PRN ×3 (05:30→21:01)
[2018-08-29] MEDS: PRILOSEC PO SCH (06:21)
[2018-08-29] MEDS: SYNTHROID PO SCH (06:21)
[2018-08-29 07:44] LABS: BASO# 0.02 X1000 (0.0-0.2); BASO% 0.1 % (0.0-0.8); EOS# 0.18 X1000 (0.0-0.7); EOS% 1.1 % (0.0-10.0); HEMATOCRIT 22.2 % (37.0-47.0); HEMOGLOBIN 6.9 g/dL (12.0-16.0); IMM GRAN# 0.18 X1000 (0.0-0.04); IMM GRAN% 1.1 % (0.0-0.5); LYMPH# 2.39 X1000 (1.2-3.4); LYMPH% 14.9 % (20.5-51.1); MCH 28.4 PG (27-31); MCHC 31.1 g/dL (33-37); MCV 91.4 FL (81-99); MONO# 0.86 X1000 (0.11-0.59); MONO% 5.4 % (1.7-9.3); MPV 9.9 FL (7.4-10.4); NEUT# 12.42 X1000 (1.4-6.5); NEUT% 77.4 % (42.2-75.2); PLT 363 X1000 (130-400); RBC 2.43 XMIL (4.2-5.4); RDW 15.4 % (11.5-14.5); RETIC% 3.89 % (0.8-2.1); RETIC-HE 32.8 PG (28.2-36.6); WBC 16.05 X1000 (4.8-10.8)
[2018-08-29 08:18] LABS: AGAP 12; BUN 27 mg/dL (8-22); CALCIUM 8.3 mg/dL (8.8-10.2); CHLORIDE 100 mmol/L (98-107); COSMO 286; CREATININE 0.8 mg/dL (0.5-0.9); ESTIMATED GFR > 60; GLUCOSE 129 mg/dL (70-104); IRON SATURATION 19 %; POTASSIUM 3.9 mmol/L (3.5-5.1); SODIUM 140 mmol/L (136-145); TCO2 28 mmol/L (25-35); TIBC 157 ug/dL; TOTAL IRON 30 ug/dL (49-151); UNBOUND IRON 127 ug/dL (112-346)
[2018-08-29 08:36] LABS: FERRITIN 298 ng/mL (13-150)
[2018-08-29] MEDS ORDERED: VANCOMYCIN IV PER PHARMACY MISC SCH (09:30)
[2018-08-29] MEDS: ROCEPHIN 2 GM in NS 50 ML IV SCH (09:42)
[2018-08-29] MEDS: BASAGLAR SUBQ SCH ×2 (09:43→20:35)
[2018-08-29] MEDS: LOVENOX SUBQ SCH (09:46)
[2018-08-29] MEDS: COREG PO SCH ×2 (09:46→20:35)
[2018-08-29] MEDS: APRESOLINE PO SCH ×3 (09:46→17:13)
[2018-08-29] MEDS: MEGACE LIQUID PO SCH ×2 (09:46→20:35)
[2018-08-29] MEDS: ASPIRIN EC PO SCH (09:46)
[2018-08-29] MEDS: IMDUR PO SCH (09:46)
[2018-08-29] MEDS: SANTYL OINT TOP SCH (09:47)
[2018-08-29] MEDS ORDERED: VANCOMYCIN 2,000 MG in NS 500 ML IV ONE (10:00)
--- NOTE | 2018-08-29 10:25 | INFECTIOUS DISEASE PROGRESS NO ---
DATE: 08/29/2018 The patient's culture from both feet is growing methicillin-resistant Staphylococcus aureus. She is currently being treated with Rocephin for streptococcal bacteremia. The patient had been on Rocephin, and I have discontinued Rocephin and placed the patient on vancomycin. cc: Alexandr Abarca MD
[2018-08-29] MEDS ORDERED: INSULIN PEN NEEDLES ONE (14:05)
[2018-08-29] MEDS: NS 500 ML IV SCH (17:13)
--- NOTE | 2018-08-29 18:16 | PROGRESS NOTE ---
DATE: 08/29/2018 SUBJECTIVE: The patient is resting comfortably in bed, no acute events noted overnight. OBJECTIVE: Vital Signs: Temperature 98.4 degrees, blood pressure 128/58, heart rate 82, respirations 22, O2 saturations 100% on room air. General: This is a chronically ill-appearing elderly female lying in bed in no acute distress. Heart: S1, S2 normal. Regular rate and rhythm. Lungs: Equal air entry bilaterally. No wheezing, no rales, no rhonchi. Abdomen: Positive bowel sounds. Soft, nontender, nondistended. Extremities: Both feet are wrapped in clean dry dressing. Neuro: The patient is awake and alert. LABS: White blood cell count 16, hemoglobin 6.9, hematocrit 22, platelets 363,000, sodium 140, potassium 3.9, chloride 100, CO2 28, BUN 27, creatinine 0.8, glucose 129, calcium 8.3. ASSESSMENT AND PLAN: 1. Bacteremia secondary to Streptococcus. Continue with antibiotic therapy. 2. Bilateral foot wounds status post debridement. The wound culture grew out methicillin- resistant Staphylococcus aureus. The patient has been switched to vancomycin by Dr. Abarca. 3. Acute cerebrovascular accident. Continue on aspirin and Lipitor. 4. Hypothyroidism. Continue on Synthroid. 5. Diabetic ketoacidosis. Resolved. 6. Bilateral conjunctivitis. Improved. 7. Insulin-dependent diabetes mellitus uncontrolled. Continue on glargine and sliding scale insulin. 8. Iron deficiency anemia. Will start the patient on iron supplementation, the patient will receive 2 units of packed red blood cells today. 9. Deep vein thrombosis prophylaxis. Continue on Lovenox. cc: Caren Kelley MD
[2018-08-29] MEDS: LIPITOR PO SCH (20:34)
[2018-08-29] MEDS: ICAR-C PO SCH (20:35)
[2018-08-29] MEDS: NORVASC PO SCH (20:35)
[2018-08-30] MEDS: HUMALOG SUBQ SCH ×6 (00:26→20:47)
[2018-08-30] MEDS: SULFACETAMIDE 10% BOTH EYES SCH ×5 (00:27→15:11)
[2018-08-30] MEDS: LASIX IV SCH ×2 (03:46→14:03)
[2018-08-30] MEDS: MORPHINE IV PRN ×3 (06:07→20:46)
[2018-08-30] MEDS: PRILOSEC PO SCH (06:07)
[2018-08-30] MEDS: SYNTHROID PO SCH (06:07)
[2018-08-30 07:44] LABS: BASO# 0.03 X1000 (0.0-0.2); BASO% 0.2 % (0.0-0.8); EOS# 0.18 X1000 (0.0-0.7); HEMATOCRIT 31.4 % (37.0-47.0); HEMOGLOBIN 10.4 g/dL (12.0-16.0); IMM GRAN# 0.31 X1000 (0.0-0.04); IMM GRAN% 1.7 % (0.0-0.5); LYMPH# 2.11 X1000 (1.2-3.4); LYMPH% 11.5 % (20.5-51.1); MCHC 33.1 g/dL (33-37); MCV 87.5 FL (81-99); NEUT# 14.64 X1000 (1.4-6.5); NEUT% 79.6 % (42.2-75.2); PLT 368 X1000 (130-400); RBC 3.59 XMIL (4.2-5.4); RDW 15.3 % (11.5-14.5); WBC 18.37 X1000 (4.8-10.8)
[2018-08-30 07:54] LABS: AGAP 11; BUN 25 mg/dL (8-22); CALCIUM 8.6 mg/dL (8.8-10.2); CHLORIDE 102 mmol/L (98-107); COSMO 286; CREATININE 0.8 mg/dL (0.5-0.9); ESTIMATED GFR > 60; GLUCOSE 104 mg/dL (70-104); POTASSIUM 3.8 mmol/L (3.5-5.1); SODIUM 141 mmol/L (136-145); TCO2 28 mmol/L (25-35)
[2018-08-30] MEDS: COREG PO SCH ×2 (09:00→20:47)
[2018-08-30] MEDS: IMDUR PO SCH (09:00)
[2018-08-30] MEDS: ASPIRIN EC PO SCH (09:00)
[2018-08-30] MEDS: MEGACE LIQUID PO SCH ×2 (09:00→20:47)
[2018-08-30] MEDS: APRESOLINE PO SCH ×3 (09:00→17:22)
[2018-08-30] MEDS: ICAR-C PO SCH ×2 (09:01→20:47)
[2018-08-30] MEDS: LOVENOX SUBQ SCH (09:01)
[2018-08-30] MEDS: BASAGLAR SUBQ SCH ×2 (09:01→20:47)
[2018-08-30] MEDS: SANTYL OINT TOP SCH (09:01)
[2018-08-30] MEDS: VANCOMYCIN 1,600 MG in NS 250 ML IV SCH (09:02)
[2018-08-30] MEDS: NS 500 ML IV SCH (10:19)
--- NOTE | 2018-08-30 12:54 | PROGRESS NOTE ---
DATE: 08/30/2018 SUBJECTIVE: No major overnight events. Family at bedside reports she has made significant improvement today. Since I have last seen her, she had debridement of skin and subcutaneous tissue on both feet. Her wound infections on the feet are growing out MRSA. Her antibiotics have been switched over from Rocephin to vancomycin as of yesterday. OBJECTIVE: She had a T-max of 99.9 last night but afebrile since that time. Blood pressure is 120s to 140s systolic, 50s to 60s diastolic. Pulse 70s to 80s. Ms. Dash is sitting up on the side of the bed with therapy at the bedside. Therapy says she has been doing very well. She has sat up for about 15 minutes. She is able to get herself back into the bed and with assistance is scooted up into the bed. She is awake, alert and oriented to location, year and month. She follows simple commands consistently. Left, right and digit distinction preserved. No significant dysarthria. No language disturbance. She continues to have slightly weaker patternmaker on the right compared to the left and perhaps slightly weaker left deltoid compared to the right, though she has some swelling of the upper extremities and moans in pain, which makes it difficult to interpret exactly. She is seen to use her lower extremities symmetrically. DIAGNOSTIC DATA: White count of 18 today. BUN of 25, creatinine 0.8. Blood sugars are 104 to 269 recently. ASSESSMENT AND PLAN: Recent multifocal infarcts. SUSAN did not show evidence of thrombus or vegetation. I would continue daily aspirin therapy. Continue telemetry monitoring and avoiding hypotension. No further recommendations from a neurologic perspective. cc: Aysha Roman MD [facility]TD[facility]
--- NOTE | 2018-08-30 18:51 | Diag Imaging Result Doc PS360 ---
EXAM: CHEST-1 VIEW INDICATION: pneumonia TECHNIQUE: One view COMPARISON: 08/26/2018 FINDINGS: The left PICC line is in stable position. Lung volumes are low similar to the previous study. The lingular atelectasis seen on the previous study has grossly resolved. No new consolidation is identified. Cardiac silhouette is stable. IMPRESSION: Low lung volumes and improvement of the mild lingular atelectasis seen previously. Electronically signed by Omari Paz 08/30/2018 6:49 PM
[2018-08-30] MEDS: NORVASC PO SCH (20:46)
[2018-08-30] MEDS: LIPITOR PO SCH (20:47)
--- NOTE | 2018-08-30 20:53 | PROGRESS NOTE ---
DATE: 08/30/2018 SUBJECTIVE: The patient is sitting at the edge of the bed working with Occupational Therapy. The patient continues to have red injected eyes with discharge. OBJECTIVE: Vital Signs: Temperature 97.8, blood pressure 132/60, heart rate 81 , respirations 20. O2 sats 98% on room air. General: This is a morbidly obese female lying in bed in no acute distress. Heart: S1, S2 normal. Regular rate and rhythm. Lungs: Equal air entry bilaterally. No crackles. No rales. Abdomen: Positive bowel sounds. Soft, nontender, nondistended. Extremities: The feet are wrapped in a clean dry dressing. Neurologic: The patient is awake and alert. LABS: White blood cell count 18, hemoglobin 10, hematocrit 31, platelets 368, 000. Sodium 141, potassium 3.8, chloride 102, CO2 28, BUN 25, creatinine 0.8, glucose 104. ASSESSMENT AND PLAN: 1. Bacteremia secondary to Streptococcus equisim. Continue with antibiotic therapy. 2. Bilateral foot ulcerations secondary to MRSA status post debridement. Continue with wound care and antibiotic therapy. 3. Urinary tract infection secondary to E coli. Resolved. 4. Acute CVA. Continue with aspirin and Lipitor. Will continue with physical therapy and occupational therapy. 5. Hypothyroidism. Continue on Synthroid. 6. Bilateral conjunctivitis. Unchanged. The patient will likely need an appointment with an batch trucker upon discharge. 7. DKA. Resolved. 8. Insulin-dependent diabetes mellitus, uncontrolled. Continue on glargine and sliding scale insulin. 9. Morbid obesity. Aware. 10. Iron deficiency anemia. Continue with iron supplementation. The patient's hemoglobin and hematocrit have improved after receiving 2 units of packed red blood cells yesterday. 11. DVT prophylaxis. Continue on Lovenox. cc: Caren Kelley MD [facility]
--- NOTE | 2018-08-30 21:00 | INFECTIOUS DISEASE PROGRESS NO ---
DATE: 08/30/2018 ADDENDUM: Unfortunately, there is no door slinger that comes to [facility] for consults. My plan will be to get a consult with an door slinger when the patient is discharged from the hospital. cc: Alexandr Abarca MD
[2018-08-31] MEDS: HUMALOG SUBQ SCH ×6 (01:05→23:13)
--- NOTE | 2018-08-31 03:57 | INFECTIOUS DISEASE PROGRESS NO ---
DATE: 08/30/2018 PRESENT ILLNESS: The patient has a streptococcal bacteremia. She also had an E. coli urinary tract infection and conjunctivitis. More recently, she had a methicillin-resistant Staphylococcus aureus infection of the patient's foot wounds. MEDICATIONS: This is the 8th day of treatment for the patient's bacteremia. Initially, Rocephin was being given and then I switched to vancomycin because of the infection of both feet with methicillin-resistant Staphylococcus aureus. As regarding the patient's eyes, I do not see that the sulfa eyedrops have made any improvement. PHYSICAL EXAMINATION: Vital Signs: Temperature maximum was 100.2 and now it is 98, pulse 80, respirations 15, blood pressure 130/60. General: This is a chronically ill-appearing, middle- aged female. Today, she has been very lethargic and she is keeping her eyes closed. Head, Eyes, Ears, Nose, and Throat: As mentioned above, the patient is keeping her eyes closed. When I open them up, there was a lot of fluid and the conjunctivae and sclerae were injected. No drainage from the nose or ears. Neck: No stiffness. Lungs: Clear to auscultation. Cardiovascular: Heart rate is regular. Abdomen: Soft and nontender. Extremities: The patient has a PICC in her left arm. The site is not swollen or tender. Neurologic: Today, the patient is very lethargic and she is keeping her eyes closed. There is no tremor. LAB AND RADIOGRAPHIC STUDIES: There is no new radiographic study today. CBC today shows a white count of 18,370, hemoglobin 10.4, and platelet count 365,000. Creatinine is 0.8. GFR is greater than 60. ASSESSMENT AND PLAN: The patient has received 8 days of treatment for her streptococcal bacteremia and the Escherichia coli urinary tract infection has been treated. The patient's eyes are no better. My plan now is to discontinue the sulfa eyedrops and continue with vancomycin. The patient's white count is elevated. I am going to go ahead and get two blood cultures and a chest x-ray. COMORBIDITIES: The patient has diabetes mellitus, coronary artery disease, chronic diabetic foot ulcers, and a history of medical noncompliance. cc: Alexandr Abarca MD
--- NOTE | 2018-08-31 04:06 | INFECTIOUS DISEASE PROGRESS NO ---
DATE: 08/30/2018 ADDENDUM: The patient's white count is elevated. I have ordered blood cultures and a portable chest x-ray. cc: Alexandr Abarca MD
[2018-08-31] MEDS: PRILOSEC PO SCH (06:12)
[2018-08-31] MEDS: SYNTHROID PO SCH (06:12)
[2018-08-31 08:15] LABS: BASO# 0.04 X1000 (0.0-0.2); BASO% 0.2 % (0.0-0.8); EOS# 0.15 X1000 (0.0-0.7); EOS% 0.9 % (0.0-10.0); HEMATOCRIT 30.7 % (37.0-47.0); IMM GRAN# 0.24 X1000 (0.0-0.04); IMM GRAN% 1.4 % (0.0-0.5); LYMPH# 2.39 X1000 (1.2-3.4); LYMPH% 13.6 % (20.5-51.1); MCH 28.7 PG (27-31); MCHC 32.6 g/dL (33-37); MCV 88.2 FL (81-99); MONO# 0.91 X1000 (0.11-0.59); MONO% 5.2 % (1.7-9.3); MPV 9.8 FL (7.4-10.4); NEUT% 78.7 % (42.2-75.2); PLT 384 X1000 (130-400); RBC 3.48 XMIL (4.2-5.4); RDW 15.5 % (11.5-14.5); WBC 17.63 X1000 (4.8-10.8)
[2018-08-31 08:30] LABS: AGAP 9; BUN 26 mg/dL (8-22); CALCIUM 8.8 mg/dL (8.8-10.2); CHLORIDE 101 mmol/L (98-107); COSMO 281; CREATININE 0.8 mg/dL (0.5-0.9); ESTIMATED GFR > 60; GLUCOSE 171 mg/dL (70-104); SODIUM 136 mmol/L (136-145); TCO2 26 mmol/L (25-35)
[2018-08-31] MEDS: IMDUR PO SCH (10:06)
[2018-08-31] MEDS: COREG PO SCH ×2 (10:06→23:08)
[2018-08-31] MEDS: MEGACE LIQUID PO SCH ×2 (10:06→23:07)
[2018-08-31] MEDS: APRESOLINE PO SCH ×3 (10:06→17:41)
[2018-08-31] MEDS: ASPIRIN EC PO SCH (10:06)
[2018-08-31] MEDS: SANTYL OINT TOP SCH (10:07)
[2018-08-31] MEDS: ICAR-C PO SCH ×2 (10:07→23:07)
[2018-08-31] MEDS: LOVENOX SUBQ SCH (10:07)
[2018-08-31] MEDS: BASAGLAR SUBQ SCH ×2 (10:21→23:19)
[2018-08-31] MEDS: MORPHINE IV PRN ×2 (11:19→23:23)
[2018-08-31] MEDS: VANCOMYCIN 1,600 MG in NS 250 ML IV SCH (11:19)
--- NOTE | 2018-08-31 13:03 | Diag Imaging Result Doc PS360 ---
FOOT COMPLETE RIGHT - 08/31/2018 INDICATION: non-healing ulcer, cellulitis TECHNIQUE: Three views COMPARISON: None FINDINGS: Bones are intact and normally aligned. There are trace degenerative heel spurs. There is mild degeneration with some spurring at the mid tarsal joints. There is also some mild vascular calcification of the arteries about the ankle. IMPRESSION: Mild peripheral vascular disease. Electronically signed by Chau Zarate 08/31/2018 1:01 PM
--- NOTE | 2018-08-31 14:15 | PROGRESS NOTE ---
DATE: 08/31/2018 SUBJECTIVE: No major overnight events. The patient states she is ready to go home. No acute neurologic events. OBJECTIVE: Vital signs: She has been afebrile yesterday and thus far today. Blood pressure is 149/69, pulse 70s, respirations 29, saturation 99% on room air. Ms. Dash is supine in bed with head of bed elevated. Her eyes are closed, and she is working with occupational therapy. She is seen to elevate both of her arms doing the repetitive occupational therapy maneuvers. When asked to open her eyes, she does open her eyes and looks in my direction. She follows simple commands consistently. Her eyes are red and injected. Ocular movements are full. Face is symmetric with equal activation. I still think her director behavioral health on the right is weaker compared to the left. She also seems to perhaps have some left deltoid weakness compared to the right, but again, all of this is limited by the patient's sense of pain with manipulation and difficult to bag printer. DIAGNOSTIC DATA: Labs are reviewed. Her white count is downtrending at 17.6 today. Normal sodium. BUN is 26, creatinine 0.8. Blood sugar is 170s to 345, still all elevated. ASSESSMENT AND PLAN: 1. Recent multifocal infarcts and SUSAN without evidence of thrombus or vegetation. She has been stable neurologically for several days now. Primary team is still working to improve her blood sugars. No new suggestions from a neurologic standpoint. 2. Multiple infections, bacteremia, urinary tract infection, methicillin- resistant Staphylococcus aureus, lower extremity infections, bilateral conjunctivitis. She is on antibiotics. Continue treatment per ID and primary. Will sign off now, but we are available if needed. cc: Aysha Roman MD [facility]
--- NOTE | 2018-08-31 17:41 | PROGRESS NOTE ---
DATE: 08/31/2018 SUBJECTIVE: Patient is resting in bed. OBJECTIVE: Vital signs: Temperature 99.4 degrees, pulse is 81, blood pressure 142/62, oxygen saturation is 98%. HEENT: Atraumatic, normocephalic. Cardiovascular system: S1, S2. Respiratory system: Has evidence of good air entry bilaterally. Abdomen: Soft, nontender. No masses felt. Extremities: No evidence of edema. Central nervous system: No obvious focal deficit noted. LABS: WBC is 17.63, hematocrit is 30.7, with a platelet count of 384,000. Sodium is 136, potassium 4.0, chloride is 101, bicarb 26, BUN is 26, creatinine 0.8. ASSESSMENT AND PLAN: 1. Bacteremia secondary to Streptococcus equisimilis. Continue antibiotics as recommended by ID. 2. Bilateral foot ulcerations secondary to methicillin-resistant Staphylococcus aureus, status post debridement. Continue local wound care as well as antibiotics. 3. Urinary tract infection secondary to Escherichia coli. Resolved. 4. Acute cerebrovascular accident. Continue aspirin as well as statin. Continue PT. 5. Hypothyroidism. Continue levothyroxine. 6. Bilateral conjunctivitis. 7. Diabetic ketoacidosis, resolved. 8. Diabetes mellitus. Continue blood sugar monitoring as well as sliding scale insulin. 9. Iron deficiency anemia. Continue iron supplementation. 10. Deep vein thrombosis prophylaxis. Lovenox. 11. Disposition. Plan for discharge home with Home Health Services when considered appropriate by the Infectious Disease team. cc: Pavel Eden MD
--- NOTE | 2018-08-31 17:58 | GENERAL SURGERY PROGRESS NOTE ---
DATE: 08/31/2018 SUBJECTIVE: The patient is doing okay. Complains of some pain in the foot. OBJECTIVE: Vital signs: She is afebrile. Vital signs are stable. General: She is awake, alert, oriented x3. No acute distress. Extremities: The right foot was examined. There is not very much cellulitis there. She does have an ulcer laterally near the 5th metatarsal head, but there is no palpable bone. The soft tissue was somewhat thin. Overall, it actually looks improved compared to her admission appearance. The left toe wounds are no longer open or draining. IMAGING: Her right foot was x-rayed. It did not show any evidence of bony disease to suggest osteomyelitis. ASSESSMENT AND PLAN: A 62-year-old female with right diabetic foot ulcer. It is slowly improving. I would continue the Santyl ointment daily, and she can follow up with me [facility]. cc: Manjit Calhoun MD
--- NOTE | 2018-08-31 18:09 | Extremity Venous Study ---
PROCEDURE NAME: Venous U/S Left Arm - 08/28/2018 STUDY: Left upper extremity venous duplex. REFERRING PHYSICIAN: Caren Kelley MD. READING PHYSICIAN: Manjit Calhoun MD. OCCUPATIONAL THERAPY SUPERVISOR: Curt. INDICATION: Left arm swelling. FINDINGS: The deep and superficial veins of the left upper extremity were imaged throughout their course. They are compressible, patent and without thrombus. INTERPRETATION: No DVT or SVT of the left upper extremity. cc: MD Caren Dutton MD
--- NOTE | 2018-08-31 21:20 | INFECTIOUS DISEASE PROGRESS NO ---
DATE: 08/31/2018 PRESENT ILLNESS: The patient has streptococcal bacteremia and methicillin-resistant Staphylococcus aureus infection of the patient's foot wounds. The patient's eyes continue to be injected and watery. MEDICATIONS: This is the 9th day of treatment with the patient's bacteremia. Initially the patient was treated with Rocephin and now she is on vancomycin to provide coverage both for the bacteremia and the methicillin-resistant Staphylococcus aureus infection of both the patient's feet. OBJECTIVE: Vital signs: Temperature is 99.4 degrees, pulse 81, respirations 20, blood pressure 142/62. Generally this is a chronically ill-appearing, middle-aged female. She is alert today and talking. Head, eyes, ears, nose and throat: There is no drainage from the nose or ears. She does not have any white coating on her tongue. As I mentioned above, the patient was talking in a coherent fashion today. She could hear the words I say. Her vision, however, is decreased. Neck: No stiffness. Lungs clear to auscultation. Cardiovascular: Heart rate is regular. Abdomen is soft and nontender. Extremities: The patient has a PICC in her left arm. The site is not swollen or draining. Integument: No rash. Pelvic exam: The patient has a small amount of labial swelling, but no erythema. DIAGNOSTIC DATA: Chest x-ray today shows no infiltrate. LABORATORY DATA: The CBC shows that the white count still is elevated at 17,630, hemoglobin is 10 and platelet count 384,000. Blood cultures drawn are still pending. ASSESSMENT AND PLAN: 1. We are treating the patient's bacteremia and infection on her feet. The patient's eyedrops have been discontinued. 2. Comorbidities include diabetes mellitus, coronary artery disease, chronic diabetic foot ulcers and a history of medical noncompliance. cc: Alexandr Abarca MD
[2018-08-31] MEDS: LIPITOR PO SCH (23:08)
[2018-08-31] MEDS: NORVASC PO SCH (23:08)
[2018-09-01] MEDS: HUMALOG SUBQ SCH ×6 (01:49→22:03)
[2018-09-01] MEDS: PRILOSEC PO SCH (06:02)
[2018-09-01] MEDS: SYNTHROID PO SCH (06:02)
[2018-09-01] MEDS ORDERED: INSULIN PEN NEEDLES ONE (07:36)
[2018-09-01 08:49] LABS: AGAP 10; BUN 22 mg/dL (8-22); CALCIUM 9.1 mg/dL (8.8-10.2); CHLORIDE 103 mmol/L (98-107); COSMO 284; CREATININE 0.8 mg/dL (0.5-0.9); ESTIMATED GFR > 60; GLUCOSE 149 mg/dL (70-104); POTASSIUM 3.8 mmol/L (3.5-5.1); SODIUM 139 mmol/L (136-145); TCO2 26 mmol/L (25-35)
[2018-09-01] MEDS: APRESOLINE PO SCH ×3 (09:53→17:28)
[2018-09-01] MEDS: IMDUR PO SCH (09:53)
[2018-09-01] MEDS: LOVENOX SUBQ SCH (09:53)
[2018-09-01] MEDS: ASPIRIN EC PO SCH (09:53)
[2018-09-01] MEDS: COREG PO SCH ×2 (09:54→23:04)
[2018-09-01] MEDS: SANTYL OINT TOP SCH (09:54)
[2018-09-01] MEDS: MEGACE LIQUID PO SCH ×2 (09:54→23:05)
[2018-09-01] MEDS: ICAR-C PO SCH ×2 (09:54→23:05)
[2018-09-01] MEDS: BASAGLAR SUBQ SCH ×2 (09:56→23:04)
[2018-09-01] MEDS ORDERED: STERILE WATER INJ. INJ ONE (10:44)
[2018-09-01] MEDS ORDERED: CATHFLO IV ONE (10:44)
[2018-09-01] MEDS: VANCOMYCIN 1,600 MG in NS 250 ML IV SCH (11:34)
[2018-09-01] MEDS: MORPHINE IV PRN (13:47)
--- NOTE | 2018-09-01 15:47 | PROGRESS NOTE ---
DATE: 09/01/2018 SUBJECTIVE: Patient is resting in bed. OBJECTIVE: Vital signs: Temperature 98.4 degrees, pulse is 76, respirations 18, blood pressure 153/66, oxygen saturation is 98%. HEENT: Atraumatic, normocephalic. Left conjunctiva significantly inflamed. Cardiovascular system: Distant heart sounds. Respiratory system: Good air entry bilaterally. Abdomen: Obese. Nontender. No masses felt. Extremities: Wound site at foot discharging bloody material. Central nervous system: No obvious focal deficit noted. LABS: Sodium is 139, potassium 3.8, chloride is 104, bicarb 26, BUN is 22, creatinine 0.8. ASSESSMENT AND PLAN: 1. Bacteremia/diabetic foot infection/urinary tract infection/bilateral conjunctivitis. Management by the Infectious Disease team. 2. Acute cerebrovascular accident. Continue aspirin, statin, and Physical Therapy. 3. Hypothyroidism. Continue levothyroxine. 4. Diabetes mellitus. Continue blood sugar monitoring as well as sliding scale insulin. 5. Iron deficiency anemia. Continue iron supplementation. 6. Deep vein thrombosis prophylaxis. Lovenox. cc: Pavel Eden MD
--- NOTE | 2018-09-01 17:03 | INFECTIOUS DISEASE PROGRESS NO ---
DATE: 09/01/2018 PRESENT ILLNESS: Ms. Dash has a streptococcal bacteremia, methicillin- resistant Staphylococcus aureus infection to her foot wounds, and an Escherichia coli urinary tract infection. There is also a leukocytosis. MEDICATIONS: Today is day 10 of treatment for her bacteremia. She is currently receiving IV vancomycin per Pharmacy dosing. PHYSICAL EXAMINATION: Vital Signs: Temperature is 98.5 degrees, pulse rate 75 , respiratory rate 18, blood pressure 148/66, O2 saturation is 98% on room air. General: This is a chronically ill- appearing, middle-aged female. She is drowsy and lethargic, but arousable, in no acute distress. HEENT: Atraumatic, normocephalic. Oral mucous membranes are pink and moist. Conjunctivae are pink/erythematous with conjunctival inflammation noted. Respiratory: Lung sounds are clear to auscultation bilaterally. Cardiovascular: Heart rate is regular. Pedal and radial pulses are palpable bilaterally. Extremities: There is a dressing in place which was recently changed to her right foot, not removed at this time. Dry, scabby abrasions noted to her left distal toes. There is a PICC line to her left upper arm. The site is without edema, erythema, or drainage. Abdomen: Soft, obese, and nontender. Bowel sounds are active. Neurologic: She is drowsy and lethargic. Will arouse, but not very talkative at this point. She does follow commands without difficulty. DIAGNOSTIC STUDIES: Today there is no CBC, but the creatinine is 0.8, estimated GFR is greater than 60. Previous blood cultures grew a Streptococcus equisimilis in both cultures. Her urine culture grew an Escherichia coli. Her foot wounds have grown methicillin-resistant Staphylococcus aureus. Most recent blood cultures have been sterile. No imaging reports today. ASSESSMENT AND PLAN: Ms. Dash is on day 10 of treatment for her streptococcal bacteremia. She also has foot wounds noted bilaterally. These are both being treated with vancomycin. No recheck of her white blood cell count has been done today so I have ordered blood work for in the morning. She has had leukocytosis, so we will go ahead and add Ancef 2 g IV every 8 hours for coverage for her Escherichia coli urinary tract infection. These plans have been discussed with and recommended by Dr. Abarca. COMORBIDITIES: For Ms. Dash include obesity, diabetes mellitus, coronary artery disease chronic diabetic foot ulcers and history of medical noncompliance. Dictated by GEORGES Goyal for Alexandr Abarca MD This chart was documented by, GEORGES Goyal and accurately reflects the services performed, treatment plan and medical decisions as attested by the providers signature Alexandr Abarca MD. cc: Alexandr Abarca MD [facility]
[2018-09-01] MEDS: KEFZOL 2 GM/D5W 2 GM/50 ML IVPB IV SCH (17:27)
[2018-09-01] MEDS ORDERED: MORPHINE IV ONE (17:43)
[2018-09-01] MEDS: NORVASC PO SCH (23:05)
[2018-09-01] MEDS: LIPITOR PO SCH (23:05)
[2018-09-02] MEDS: MORPHINE IV PRN ×4 (00:36→17:04)
[2018-09-02] MEDS: HUMALOG SUBQ SCH ×6 (01:13→22:42)
[2018-09-02] MEDS: KEFZOL 2 GM/D5W 2 GM/50 ML IVPB IV SCH ×3 (01:13→17:02)
[2018-09-02] MEDS: PRILOSEC PO SCH (07:51)
[2018-09-02] MEDS: SYNTHROID PO SCH (07:51)
[2018-09-02 08:12] LABS: BASO# 0.05 X1000 (0.0-0.2); BASO% 0.3 % (0.0-0.8); EOS# 0.12 X1000 (0.0-0.7); EOS% 0.7 % (0.0-10.0); HEMATOCRIT 29.4 % (37.0-47.0); HEMOGLOBIN 9.5 g/dL (12.0-16.0); IMM GRAN# 0.21 X1000 (0.0-0.04); IMM GRAN% 1.3 % (0.0-0.5); LYMPH# 2.18 X1000 (1.2-3.4); LYMPH% 13.4 % (20.5-51.1); MCH 28.6 PG (27-31); MCHC 32.3 g/dL (33-37); MCV 88.6 FL (81-99); MONO# 0.99 X1000 (0.11-0.59); MONO% 6.1 % (1.7-9.3); MPV 9.7 FL (7.4-10.4); NEUT# 12.72 X1000 (1.4-6.5); NEUT% 78.2 % (42.2-75.2); PLT 376 X1000 (130-400); RBC 3.32 XMIL (4.2-5.4); RDW 15.4 % (11.5-14.5); WBC 16.27 X1000 (4.8-10.8)
[2018-09-02 08:28] LABS: ALB/GLOB RATIO 0.6; ALBUMIN 2.8 g/dL (3.5-5.0); CALCIUM 8.9 mg/dL (8.8-10.2); CREATININE 1.1 mg/dL (0.5-0.9); POTASSIUM 4.2 mmol/L (3.5-5.1); TOTAL BILIRUBIN 0.55 mg/dL (0.20-1.00); TOTAL PROTEIN 7.7 g/dL (6.3-8.3)
[2018-09-02] MEDS: LOVENOX SUBQ SCH (08:33)
[2018-09-02] MEDS: ICAR-C PO SCH ×2 (08:34→21:27)
[2018-09-02] MEDS: APRESOLINE PO SCH ×3 (08:34→17:04)
[2018-09-02] MEDS: IMDUR PO SCH (08:34)
[2018-09-02] MEDS: ASPIRIN EC PO SCH (08:34)
[2018-09-02] MEDS: MEGACE LIQUID PO SCH ×2 (08:34→21:27)
[2018-09-02] MEDS: COREG PO SCH ×2 (08:34→21:27)
[2018-09-02] MEDS: BASAGLAR SUBQ SCH ×2 (08:35→22:45)
[2018-09-02] MEDS: SANTYL OINT TOP SCH (08:36)
[2018-09-02] MEDS: VANCOMYCIN 1,600 MG in NS 250 ML IV SCH (10:29)
[2018-09-02] MEDS: ZOFRAN IV PRN ×2 (12:49→17:04)
--- NOTE | 2018-09-02 13:27 | PROGRESS NOTE ---
DATE: 09/02/2018 SUBJECTIVE: Patient resting comfortably in bed. OBJECTIVE: Vital Signs: Temperature 97.7 degrees, pulse 75, respirations 18, blood pressure 145/64, and oxygen saturation is 100%. HEENT: Atraumatic and normocephalic. Right conjunctiva looks very much inflamed. Cardiovascular: S1, S2. Respiratory: There is evidence of good air entry bilaterally. Abdomen: Soft and nontender. No masses felt. Extremities : Right foot wound dressed. Central nervous system: No obvious focal deficit noted. LABORATORY: WBC 7.27, hematocrit 29.4, with a platelet count of 376,000. Sodium is 135, potassium 4.2, chloride 100, bicarb 24, BUN is 30 ASSESSMENT AND PLAN: 1. Bacteremia/diabetic foot infection/urinary tract infection/bilateral conjunctivitis. Management by the Infectious Disease team. 2. Acute CVA. Continue aspirin, statin as well as physical therapy. 3. Hypothyroidism. Continue levothyroxine. 4. Diabetes mellitus. Continue blood sugar medications as well as sliding scale insulin. 5. Iron deficiency anemia. Continue iron supplementation. 6. Deep vein thrombosis prophylaxis. Lovenox. cc: Pavel Eden MD MTDD
--- NOTE | 2018-09-02 14:55 | ED EKG INTERP ---
This chart was entered by Pamela Paz Scribe, acting as scribe for Gus Benitez MD. EKG Interpretation - EKG Time of EKG reading by physician:: 18:24 EKG Read and Signed by:: Gus Benitez EKG Interpretation (*Must complete 3 of following elements*): Abnormal Rate: 102 Rhythm: ST w/possible left atrial enlargement QRS: LVH (repolarized abnormality) WI Interval: normal Attestation - Physician/ MANUELA Attestation The physician spent face to face time with patient:: Yes Advanced Practice Provider documentation review:: Supervising physician onsite and consulted in the evaluation and care of this patient. The physician did have a face to face encounter with the patient. This chart was documented by the indicated scribe, (Pamela Paz Scribe) and accurately reflects the services I performed and decisions made by me, Gus Benitez MD, as attested by the provider's signature.
[2018-09-02] MEDS: CUBICIN 600 MG in NS 100 ML IV SCH (18:18)
--- NOTE | 2018-09-02 18:47 | INFECTIOUS DISEASE PROGRESS NO ---
DATE: 09/02/2018 PRESENT ILLNESS: Ms. Dash is being treated for streptococcal bacteremia, methicillin- resistant Staph aureus infection to her foot wounds, and an Escherichia coli urinary tract infection. She has had a leukocytosis which is slowly improving. Unfortunately, she has had a decrease in her GFR and increase in the creatinine. MEDICATIONS: She is receiving IV vancomycin per pharmacy dosing as well as Ancef 2 g IV every 8 hours. PHYSICAL EXAMINATION: Vital Signs: Temperature is 98.6, pulse rate 81, respiratory rate 17, blood pressure 145/63, O2 saturation is 98% on room air. General: This is a chronically ill- appearing, middle-aged female. She is currently lying in the bed, in no acute distress. HEENT: Atraumatic, normocephalic. Oral mucous membranes are pink and moist. Conjunctiva and sclera are erythematous with mild periorbital edema noted. Respiratory: Lung sounds are clear in the upper lobes. Diminished in the bases. Cardiovascular: Heart rate and rhythm are regular. Normal sinus rhythm on the monitor. Radial and pedal pulses are +1 bilaterally. Pitting edema noted, 2+ to the upper extremities. Integumentary: There is a bulky dressing to her right foot. The left distal toes have dry scabby abrasions. She also has a PICC to her left upper arm. The site is without edema, erythema, or drainage. Abdomen: Soft, obese, nontender. Bowel sounds are active. Neurologic: She is awake, alert and oriented. Able to move her extremities with generalized weakness in the bed. LABORATORY AND X-RAY: Today, her white count is 16.27, hemoglobin 9.5, platelet count 376,000. Creatinine is 1.1. GFR is 650. Total bilirubin is 0.55, AST 14, ALT 11, alkaline phosphatase 59. Her urine culture recently grew an Escherichia coli. Her blood cultures grew a strep equisimilis and her bilateral feet grew methicillin-resistant Staph aureus. No imaging reports today. ASSESSMENT AND PLAN: Ms. Dash is on day 11 of treatment for her streptococcal bacteremia. Today, we will discontinue the vancomycin because her creatinine is creeping up and her GFR is going down. Instead, she will receive daptomycin 600 mg IV daily, and I have discontinued her Lipitor due to the possibility of muscle breakdown with coadministration. She will need 3 more days of treatment for her bacteremia and may need additional treatment for her bilateral foot wounds. Dr. Abarca has spoken with Dr. Calhoun regarding the possibility of osteomyelitis in that right foot. He does not think there is an osteomyelitis at this point, but he agrees with verifying per MRI to be sure. At this point, because she has had surgery on that foot, a bone scan would not be helpful, so we will plan on the MRI once her renal function normalizes. We will also continue her Ancef at this time for the urinary tract infection. For now, her leukocytosis continues to improve slowly. We will check labs tomorrow. The tentative plan is for her to go to rehab at some point. We will try to resolve these issues so that she can go as soon as possible. She does have some swelling and erythema noted to her eyes bilaterally, which does not look like an infection, and we have previously put in an order to consult an thermostat repairer once she is discharged. These plans have been discussed with and recommended by Dr. Abarca. COMORBIDITIES: For Ms. Dash include obesity, diabetes mellitus, coronary artery disease, chronic diabetic foot ulcers, and history of medical noncompliance. Dictated by GEORGES Goyal for Alexandr Abarca MD This chart was documented by, GEORGES Goyal and accurately reflects the services performed, treatment plan and medical decisions as attested by the providers signature Alexandr Abarca MD. cc: Alexandr Abarca MD [facility]
[2018-09-02] MEDS: NORVASC PO SCH (21:27)
[2018-09-03] MEDS: KEFZOL 2 GM/D5W 2 GM/50 ML IVPB IV SCH ×3 (00:25→17:26)
[2018-09-03] MEDS: HUMALOG SUBQ SCH ×6 (00:26→22:19)
[2018-09-03] MEDS: PRILOSEC PO SCH (06:23)
[2018-09-03] MEDS: SYNTHROID PO SCH (06:23)
[2018-09-03 08:27] LABS: BASO# 0.05 X1000 (0.0-0.2); BASO% 0.3 % (0.0-0.8); EOS# 0.08 X1000 (0.0-0.7); EOS% 0.5 % (0.0-10.0); HEMATOCRIT 30.2 % (37.0-47.0); HEMOGLOBIN 9.7 g/dL (12.0-16.0); IMM GRAN% 1.1 % (0.0-0.5); LYMPH# 2.21 X1000 (1.2-3.4); LYMPH% 12.4 % (20.5-51.1); MCH 28.7 PG (27-31); MCHC 32.1 g/dL (33-37); MCV 89.3 FL (81-99); MONO# 1.03 X1000 (0.11-0.59); MONO% 5.8 % (1.7-9.3); MPV 9.5 FL (7.4-10.4); NEUT% 79.9 % (42.2-75.2); PLT 382 X1000 (130-400); RBC 3.38 XMIL (4.2-5.4); RDW 15.5 % (11.5-14.5); WBC 17.77 X1000 (4.8-10.8)
[2018-09-03 08:32] LABS: CALCIUM 9.1 mg/dL (8.8-10.2); CREATININE 1.1 mg/dL (0.5-0.9); POTASSIUM 4.3 mmol/L (3.5-5.1)
[2018-09-03 08:54] LABS: BANDS 4 % (0-1); LYMPHS 8 % (21-51); MONO 2 % (1-9); SEGS 84 % (42-75)
[2018-09-03] MEDS: LOVENOX SUBQ SCH (09:54)
[2018-09-03] MEDS: MEGACE LIQUID PO SCH ×2 (09:54→22:17)
[2018-09-03] MEDS: COREG PO SCH ×2 (09:54→22:17)
[2018-09-03] MEDS: IMDUR PO SCH (09:55)
[2018-09-03] MEDS: ICAR-C PO SCH ×2 (09:55→22:18)
[2018-09-03] MEDS: ASPIRIN EC PO SCH (09:55)
[2018-09-03] MEDS: BASAGLAR SUBQ SCH ×2 (09:55→22:19)
[2018-09-03] MEDS: APRESOLINE PO SCH ×3 (09:55→17:26)
[2018-09-03] MEDS: SANTYL OINT TOP SCH (09:56)
[2018-09-03] MEDS: MORPHINE IV PRN ×2 (14:51→22:18)
[2018-09-03] MEDS: CUBICIN 600 MG in NS 100 ML IV SCH (17:12)
[2018-09-03] MEDS: PRED FORTE 1% OPH SUSPENSION BOTH EYES SCH ×2 (17:12→22:18)
[2018-09-03] MEDS: CILOXAN OPHTH SOLN BOTH EYES SCH ×2 (17:13→22:19)
--- NOTE | 2018-09-03 20:50 | INFECTIOUS DISEASE PROGRESS NO ---
DATE: 09/03/2018 PRESENT ILLNESS: Ms. Dash has a streptococcal bacteremia, methicillin- resistant Staph aureus infection to her feet and an E coli urinary tract infection. There is also a leukocytosis and a mild acute kidney injury, most likely from the previous use of vancomycin. She also has some worsening conjunctivitis and periorbital swelling. MEDICATION: She is receiving Kefzol 2 g IV every 8 hours and daptomycin 600 mg IV every 24 hours. PHYSICAL EXAMINATION: Vital Signs: Temperature is 98.4, pulse rate 79, respiratory rate 17, blood pressure 154/66. O2 saturation is 97% on room air. General: This is a chronically ill- appearing, middle-aged, morbidly obese female. She is lying in bed currently in no acute distress. HEENT: Atraumatic, normocephalic. Oral mucous membranes are pink and moist. There is some mild periorbital edema. She is currently refusing to open her eyes. Respiratory: Lung sounds are clear in the upper lobes. Diminished in the bases. Cardiovascular: Heart rate and rhythm are regular. Normal sinus rhythm on the monitor. There is 2+ pitting edema to her bilateral upper extremities. Integumentary: She has a dressing in place to her right foot and the left distal toes have dry scabby abrasions. There is also a PICC line to the left upper arm. Site is without edema, erythema, or drainage. Abdomen: Soft, obese and nontender. Bowel sounds are active. Neurologic: She is awake, alert and oriented. She is able to move her extremities with generalized weakness in the bed. LABORATORY AND X-RAY: Today, her white count is 17.77, hemoglobin 9.7, platelet count 382,000. Creatinine is 1.1. GFR 50. Her blood cultures have grown strep equisimilis and her urine culture grew Escherichia coli. Her foot wounds have grown methicillin-resistant Staph aureus and her blood cultures have been sterile as of the last set. No imaging reports today. ASSESSMENT AND PLAN: Ms Dash is on day 12 of treatment for her streptococcal bacteremia. Vancomycin was discontinued due to the increase in her creatinine and decrease in the GFR which remains the same today. We are hoping that her renal function will return to normal soon. For now, we will continue the daptomycin 600 mg IV daily for the treatment of the wounds on her feet as well as her streptococcal bacteremia. Once her kidney function normalizes, we will order an MRI to check for any possible osteomyelitis of that right foot. For now, we will also continue her Ancef for the urinary tract infection and recheck labs for Thursday and hope that her white count normalizes by then. Tentatively she will go to rehab when these things have resolved and will need ophthalmology consult after discharge. For now, we will give her Pred Forte ophthalmic drops every 6 hours, and Cipro ophthalmic drops every 4 hours. These plans have been discussed with and recommended by Dr. Abarca. COMORBIDITIES: For Ms. Dash include morbid obesity diabetes mellitus, coronary artery disease, chronic diabetic foot ulcers and history of medical noncompliance. Dictated by GEORGES Goyal for Alexandr Abarca MD This chart was documented by, GEORGES Goyal and accurately reflects the services performed, treatment plan and medical decisions as attested by the providers signature Alexandr Abarca MD. cc: Alexandr Abarca MD [facility]
[2018-09-03] MEDS: NORVASC PO SCH (22:18)
[2018-09-04] MEDS: KEFZOL 2 GM/D5W 2 GM/50 ML IVPB IV SCH ×4 (00:42→23:33)
[2018-09-04] MEDS: HUMALOG SUBQ SCH ×7 (00:43→21:59)
[2018-09-04] MEDS: CILOXAN OPHTH SOLN BOTH EYES SCH ×6 (00:43→21:57)
[2018-09-04] MEDS: PRED FORTE 1% OPH SUSPENSION BOTH EYES SCH ×4 (04:12→22:10)
[2018-09-04] MEDS: MORPHINE IV PRN ×4 (04:12→22:01)
[2018-09-04] MEDS: PRILOSEC PO SCH (06:13)
[2018-09-04] MEDS: SYNTHROID PO SCH (06:13)
[2018-09-04] MEDS: SANTYL OINT TOP SCH (09:07)
[2018-09-04] MEDS: LOVENOX SUBQ SCH (09:08)
[2018-09-04] MEDS: MEGACE LIQUID PO SCH ×2 (09:08→22:00)
[2018-09-04] MEDS: COREG PO SCH ×2 (09:09→22:01)
[2018-09-04] MEDS: APRESOLINE PO SCH ×3 (09:09→17:15)
[2018-09-04] MEDS: IMDUR PO SCH (09:09)
[2018-09-04] MEDS: ASPIRIN EC PO SCH (09:09)
[2018-09-04] MEDS: ICAR-C PO SCH ×2 (09:09→22:01)
[2018-09-04] MEDS: BASAGLAR SUBQ SCH ×2 (09:11→22:00)
--- NOTE | 2018-09-04 15:12 | PROGRESS NOTE ---
DATE: 09/04/2018 SUBJECTIVE: This morning, Mr. Dash was at the bedside. Family members, daughter and a granddaughter and a great-granddaughter were all at the bedside at the time of the encounter. They are trying to get Ms. Dash to go out and take a shower. Ms. Dash refers to be doing fine. OBJECTIVE: Vital Signs: Blood pressure is 126/60, pulse is 78, respiration is 22, temperature is 98.0 degrees. General: Ms. Dash is a 62-year-old female. She is at the edge of the bed. She is not in any cardiopulmonary distress. Mucosa is pink and moist. Anicteric. Acyanotic. Neck: Supple. Chest: Clear to auscultation. No crepitations. No rhonchi. Cardiovascular: Regular rate and rhythm. No murmurs, no rubs, no gallops. Abdomen: Soft, distended, but nontender. Bowel sounds present. Extremities: No pedal edema. Right foot is in a sterile dressing. LABORATORY DATA: No CBC for this morning. Chemistry: Glucose is 295. The patient A1c on admission was 9.5. Surgery operative note on the 28 of August shows debridement of skin and subcutaneous tissue, less than 20 square cm, by Dr. Calhoun. MICROBIOLOGY DATA: The right foot surgical specimen grew MRSA. Urine did show E. coli. A blood culture did show strep 2/2. CURRENT MEDICATIONS: Have all been reviewed. Continues to be on daptomycin and Ancef as antibiotics. ASSESSMENT: 1. Strep bacteremia on presentation. Repeat blood cultures have been negative. Patient is currently on Ancef, and ID is on board. 2. E. coli UTI noted. 3. MRSA infection of the right diabetic foot ulcer. The patient is status post I D, and she is on daptomycin. ID is on board. 4. Severe uncontrolled diabetes mellitus type 2 on presentation, associated with hyperglycemic hyperosmolar nonketotic coma, improved. The patient is currently on insulin therapy. A1c on admission was 9.5. 5. Acute kidney injury on presentation, improved. 6. Cerebrovascular accident, with imaging suggestive of multiple areas of restricted diffusion throughout the brain, involving the cerebrum and cerebellum, which is indicative of an infarction due to low blood flow states or microemboli. The patient had a SUSAN, which was unremarkable for any vegetations or thrombus. The ejection fraction was 60%. There are, however, 2 jets of mitral regurgitation, [id number] eccentric mitral regurgitation was documented. 7. Generalized weakness and deconditioning. We will get Physical Therapy to continue working with Ms. Dash. In general, I think Ms. Dash is fairly stable. I think she is getting nearer for discharge. She is going to be needing IV antibiotics for some time because of the bacteremia and the MRSA infection of the foot. Unsure if the patient would want to go home or would rather go to rehab. Per physical therapy note, it appears that the patient was able to do 51 feet with minimum assistance yesterday. We will re-evaluate her on Thursday and then go from there. cc: Pardeep Crook MD
[2018-09-04] MEDS: CUBICIN 600 MG in NS 100 ML IV SCH (17:21)
[2018-09-04] MEDS: NORVASC PO SCH (22:01)
[2018-09-05] MEDS: CILOXAN OPHTH SOLN BOTH EYES SCH ×6 (00:38→20:25)
[2018-09-05] MEDS: PRED FORTE 1% OPH SUSPENSION BOTH EYES SCH ×5 (04:26→21:59)
[2018-09-05] MEDS: HUMALOG SUBQ SCH ×4 (06:58→21:59)
[2018-09-05] MEDS: PRILOSEC PO SCH (06:59)
[2018-09-05] MEDS: SYNTHROID PO SCH (06:59)
[2018-09-05] MEDS: MORPHINE IV PRN ×4 (07:00→20:30)
[2018-09-05 07:14] LABS: BASO# 0.07 X1000 (0.0-0.2); BASO% 0.5 % (0.0-0.8); EOS# 0.15 X1000 (0.0-0.7); HEMOGLOBIN 8.9 g/dL (12.0-16.0); IMM GRAN# 0.12 X1000 (0.0-0.04); IMM GRAN% 0.8 % (0.0-0.5); LYMPH% 14.9 % (20.5-51.1); MCH 28.4 PG (27-31); MCHC 31.8 g/dL (33-37); MCV 89.5 FL (81-99); MONO# 0.86 X1000 (0.11-0.59); MONO% 5.8 % (1.7-9.3); MPV 9.5 FL (7.4-10.4); PLT 362 X1000 (130-400); RBC 3.13 XMIL (4.2-5.4); RDW 15.8 % (11.5-14.5)
[2018-09-05 07:45] LABS: ALB/GLOB RATIO 0.6; ALBUMIN 2.7 g/dL (3.5-5.0); CALCIUM 9.1 mg/dL (8.8-10.2); POTASSIUM 4.6 mmol/L (3.5-5.1); TOTAL BILIRUBIN 0.43 mg/dL (0.20-1.00); TOTAL PROTEIN 7.2 g/dL (6.3-8.3)
[2018-09-05] MEDS: ICAR-C PO SCH ×2 (09:00→20:24)
[2018-09-05] MEDS: IMDUR PO SCH (09:00)
[2018-09-05] MEDS: LOVENOX SUBQ SCH (09:00)
[2018-09-05] MEDS: COREG PO SCH ×2 (09:00→20:24)
[2018-09-05] MEDS: APRESOLINE PO SCH ×3 (09:00→20:24)
[2018-09-05] MEDS: KEFZOL 2 GM/D5W 2 GM/50 ML IVPB IV SCH ×2 (09:00→16:18)
[2018-09-05] MEDS: ASPIRIN EC PO SCH (09:01)
[2018-09-05] MEDS: MEGACE LIQUID PO SCH ×2 (09:01→20:24)
[2018-09-05] MEDS: BASAGLAR SUBQ SCH ×2 (09:23→20:24)
--- NOTE | 2018-09-05 10:23 | PROGRESS NOTE ---
DATE: 09/05/2018 SUBJECTIVE: This morning, Ms. Dash referred to be doing fairly okay. She said the light bothers her for the most part. That is why she keeps her eyes closed. No acute changes per the nursing staff overnight. OBJECTIVE: Vital Signs: Blood pressure is 140/90, pulse is 74, respirations are 13, temperature is 98.3 degrees, patient is saturating 100% on room air. General Examination: Ms. Dash is a 62-year-old, female. She is in bed. Not seemingly distressed. HEENT: Mucosa is pink and moist. Anicteric. Acyanotic. Neck: Supple. Chest: Good air entry bilateral. There were no crepitations. No rhonchi. Cardiovascular: Regular rate and rhythm. No murmurs, no rubs, no gallops. GI: Abdomen is soft, is distended, but nontender. Bowel sounds present. Extremities: No pedal edema. The right foot continues to be in a sterile dressing. PRINCIPAL ARCHAEOLOGIST: The patient is awake. The patient has her eyes closed but is easily arousable. In terms of the eyes, when we turn off the light, she would open her eyes. She has normal movement of the globes bilaterally. She does have subconjunctival inflammation but the iris looked normal. The pupils are equal and they are reactive bilaterally. Laboratory Data: WBC is down to 14.80, hemoglobin is 8.9, platelet count of 362,000. Chemistry is also reviewed. Creatinine is 1.08, getting improved. Current Medications: Have all also been reviewed. No changes. Subsequent blood culture from August 30 has been 5 days negative. ASSESSMENT: 1. Streptococcal bacteremia on presentation. Repeat blood cultures have been negative. Patient is currently on Ancef. 2. Methicillin-resistant Staphylococcus aureus infection of the right diabetic foot ulcer. Patient is status post incision and drainage. She is currently on daptomycin. 3. Escherichia coli urinary tract infection. 4. Uncontrolled diabetes mellitus on presentation associated with hyperglycemic, hyperosmolar, nonketotic state, has significantly improved. 5. Acute kidney injury on presentation, improved. 6. Cerebrovascular accident with MRI image showing multiple areas of restricting diffusion lesions concerning for low blood flow state or microemboli. The patient is status post transesophageal echocardiogram. There was no evidence of vegetations or thrombus. She did have an ejection fraction of 60%. There was, however, a moderate to severe eccentric mitral regurgitation documented. 7. Generalized weakness and deconditioning. Physical therapy is on board. 8. Bilateral subconjunctivitis. The patient is on Cipro and prednisone eyedrops. Unfortunately, we do not have any eye backup for a consult. PLAN: In general, I think Ms. Dash is fairly stable. We are going to continue with the current medications including the IV antibiotics. We will wait for physical therapy evaluation today. There is a plan to hopefully get her to rehab tomorrow if everything remains stable. cc: Pardeep Crook MD
[2018-09-05] MEDS: SANTYL OINT TOP SCH (16:34)
[2018-09-05] MEDS: CUBICIN 600 MG in NS 100 ML IV SCH (17:49)
[2018-09-05] MEDS: NORVASC PO SCH (20:24)
[2018-09-05 20:45] LABS: URINE SOURCE CATH
[2018-09-05 20:48] LABS: BILIRUBIN URINE NEGATIVE (NEGATIVE); BLOOD URINE LARGE (NEGATIVE); COLOR ORANGE; GLUCOSE URINE NEGATIVE (NEGATIVE); KETONE URINE NEGATIVE (NEGATIVE); LEUKOCYTES URINE LARGE (NEGATIVE); NITRITE URINE NEGATIVE (NEGATIVE); PH URINE 5.5; PROTEIN URINE 50 mg/dL (NEGATIVE); SP GRAVITY URINE 1.015; TURBIDITY URINE TURBID (CLEAR); UROBILINOGEN URINE NORMAL (NORMAL)
[2018-09-05 21:08] LABS: UR EPITHELIAL CELLS <10 /HPF (<10); URINE BACTERIA NEGATIVE /HPF; URINE RBC TNTC /HPF (<10); URINE WBC TNTC /HPF (<10)
[2018-09-05 21:11] LABS: URINE CASTS NONE SEEN; URINE CRYSTALS NONE SEEN; URINE YEAST PRESENT
[2018-09-05 21:12] LABS: URINE SMALL ROUND CELLS NONE SEEN
[2018-09-06] MEDS: CILOXAN OPHTH SOLN BOTH EYES SCH ×5 (00:13→16:43)
[2018-09-06] MEDS: KEFZOL 2 GM/D5W 2 GM/50 ML IVPB IV SCH ×2 (00:13→08:52)
[2018-09-06] MEDS: PRED FORTE 1% OPH SUSPENSION BOTH EYES SCH ×3 (04:27→16:41)
[2018-09-06] MEDS: MORPHINE IV PRN ×2 (04:27→13:31)
[2018-09-06] MEDS: SYNTHROID PO SCH (06:06)
[2018-09-06] MEDS: PRILOSEC PO SCH (06:06)
[2018-09-06] MEDS: HUMALOG SUBQ SCH ×3 (06:06→16:43)
[2018-09-06 07:50] LABS: BASO# 0.04 X1000 (0.0-0.2); BASO% 0.3 % (0.0-0.8); EOS% 1.5 % (0.0-10.0); HEMATOCRIT 28.4 % (37.0-47.0); HEMOGLOBIN 9.1 g/dL (12.0-16.0); IMM GRAN# 0.16 X1000 (0.0-0.04); IMM GRAN% 1.2 % (0.0-0.5); LYMPH# 2.06 X1000 (1.2-3.4); MCH 28.4 PG (27-31); MCV 88.8 FL (81-99); MONO# 0.74 X1000 (0.11-0.59); MONO% 5.4 % (1.7-9.3); MPV 9.8 FL (7.4-10.4); NEUT# 10.56 X1000 (1.4-6.5); NEUT% 76.6 % (42.2-75.2); PLT 365 X1000 (130-400); RDW 15.7 % (11.5-14.5); WBC 13.76 X1000 (4.8-10.8)
[2018-09-06 07:56] LABS: CALCIUM 8.8 mg/dL (8.8-10.2); CREATININE 1.1 mg/dL (0.5-0.9); POTASSIUM 4.5 mmol/L (3.5-5.1)
[2018-09-06] MEDS: ICAR-C PO SCH (08:55)
[2018-09-06] MEDS: ASPIRIN EC PO SCH (08:55)
[2018-09-06] MEDS: SANTYL OINT TOP SCH (08:55)
[2018-09-06] MEDS: IMDUR PO SCH (08:55)
[2018-09-06] MEDS: APRESOLINE PO SCH ×3 (08:55→16:41)
[2018-09-06] MEDS: MEGACE LIQUID PO SCH (08:55)
[2018-09-06] MEDS: COREG PO SCH (08:55)
[2018-09-06] MEDS: LOVENOX SUBQ SCH (08:55)
[2018-09-06] MEDS: BASAGLAR SUBQ SCH (08:56)
[2018-09-06 15:44] VITALS: BP 138/64
--- NOTE | 2018-09-06 16:21 | INFECTIOUS DISEASE PROGRESS NO ---
DATE: 09/06/2018 PRESENT ILLNESS: Ms. Dash has completed treatment for streptococcal bacteremia. She is still receiving treatment for methicillin-resistant Staph aureus infection to her feet as well as an E. coli urinary tract infection. There is still a leukocytosis as well as an acute kidney injury. She also has a conjunctivitis with significant improvement noted. MEDICATION: She is receiving Kefzol 2 g IV every 8 hours, daptomycin 600 mg IV daily, Pred Forte eye drops every 6 hours and Cipro eye drops every 4 hours. PHYSICAL EXAM: Vital Signs: Temperature is 98.4 degrees, pulse rate 84, respiratory rate 17, blood pressure 149/64, O2 saturation 99% on room air. General: This is a chronically ill- appearing, middle-aged morbidly obese female. She is currently lying in bed in no acute distress. HEENT: Atraumatic, normocephalic. Oral mucous membranes are pink and moist. The periorbital edema has improved dramatically. There is a conjunctivitis with erythematous sclerae, which is also improving. Respiratory: Lung sounds are clear in the upper lobes , diminished in the bases. Cardiovascular: Heart rate and rhythm are regular. Normal sinus rhythm on the monitor. She has a bilateral upper extremity pitting edema which is 2+. Integumentary: The dressing to her right foot has been removed and there are dry scabby abrasions noted to the right lateral foot, right heel, and left distal toes. She also has a PICC line in the left upper arm. The site is without edema, erythema or drainage. Abdomen: Soft, obese and nontender. Bowel sounds are active. Neurologic: She is lethargic but arousable and oriented, able to move all her extremities with generalized weakness. LABORATORY AND X-RAY: Today her white count is 13.76, hemoglobin 9.1, platelet count 365,000, creatinine is 1.1, GFR 50. There is a urine culture pending. Blood cultures have been clear since the . Her previous urine culture grew Escherichia coli and previous blood culture was a strep equisimilis. Both feet grew methicillin-resistant Staph aureus. No imaging reports today. ASSESSMENT AND PLAN: Ms Dash has been discharged to go to rehab today. Today is day 15 of treatment for her streptococcal bacteremia, so that treatment has been completed. We will, however, continue her on daptomycin 600 mg IV daily at rehab and then at home once she has been discharged from rehab because she has had MRSA in her toes and has had the wounds for an extended period of time. We think she has an osteomyelitis that will need to be treated for a total of 6 weeks additional to make 8 weeks total. For verification, we will get an MRI of the right lower extremity. I have also changed her Kefzol to Keflex 500mg by mouth every 8 hours, which she will require for 9 more days to complete a 2-week course of treatment for her E coli urinary tract infection. She has obtained an Ophthalmology consult to be done on . For now we will continue her Cipro and Pred Forte drops until the recommendations from the outpatient surgery rn can be obtained. An order sheet with instructions for daptomycin have been placed on the chart. The plan is for us to see her in our office in 3 weeks and then again at 6 weeks. If the MRI does not show any osteomyelitis, we will most likely send her out on oral doxycycline. These plans have been discussed with and recommended by Dr. Abarca. COMORBIDITIES: Include morbid obesity, diabetes mellitus, coronary artery disease, chronic diabetic foot ulcers, and history of medical noncompliance. Dictated by GEORGES Goyal for Alexandr Abarca MD This chart was documented by, GEORGES Goyal and accurately reflects the services performed, treatment plan and medical decisions as attested by the providers signature Alexandr Abarca MD. cc: Alexandr Abarca MD [facility]
[2018-09-06] MEDS: CUBICIN 600 MG in NS 100 ML IV SCH (17:05)
--- NOTE | 2018-09-06 20:48 | DISCHARGE SUMMARY ---
ADMISSION DATE: 08/20/2018 DISCHARGE DATE: 09/06/2018 CONSULTATIONS: 1. Dr. Alexandr Abarca with Infectious Disease. 2. Dr. Aysha Roman with Neurology. 3. Dr. Carson Gold with Cardiology. 4. Dr. Manjit Calhoun of General Surgery. DISCHARGE DIAGNOSES: 1. Streptococcal bacteremia on presentation. Repeat blood cultures have been negative. The patient is currently on Ancef. 2. Methicillin-resistant Staphylococcus aureus infection to the right diabetic foot ulcer. The patient is status post incision and drainage and on daptomycin. 3. Uncontrolled diabetes mellitus on presentation associated with hyperglycemic hyperosmolar nonketotic state, which has significantly improved. 4. Acute kidney injury on presentation, improved. 5. Cerebrovascular accident with MRI imaging showing multiple areas of restricting diffusion lesions concerning for low blood flow state or microemboli. She is status post SUSAN. There was no evidence of vegetation or thrombus. She had an EF of 60% with moderate to severe eccentric mitral regurgitation documented. 6. Generalized weakness and deconditioning. Physical therapy has been on board. She will be discharged to [facility]. 7. Bilateral subconjunctivitis. The patient is on Cipro and prednisone eyedrops. HOSPITAL COURSE: Briefly, Ms. Dash is a 62-year-old female with uncontrolled diabetes, coronary artery disease, hypertension and hyperlipidemia, who was admitted on 08/20/2018 after her home health nurse found her to be confused, generally weak and fatigued with fever, chills, and elevated blood sugar. Her blood sugar was above 800 with leukocytosis and acute kidney injury secondary to dehydration. She had been diagnosed with streptococcal bacteremia and a urinary tract infection and was being treated for those by Infectious Disease. She remained confused during her stay. Head imaging that was performed did show several scattered small infarcts involving the anterior and posterior circulation on the right and on the left sides of the brain. She underwent a SUSAN that did not show any thrombus or vegetation; however, it did show moderate to severe eccentric mitral regurgitation. She was continued on IV antibiotics per Dr. Abarca. She was also noted to have an MRSA infection for her right diabetic foot ulcer that she had been having care with Dr. Calhoun; however, he reports her to be somewhat noncompliant. She did undergo an I and D, and again antibiotics were per Infectious Disease. She was also in HHNK, which has significantly improved. Blood sugars are now more controlled. She did have some generalized weakness as well as physical deconditioning for which physical therapy was brought on board. She was also noted to have bilateral subconjunctivitis for which she was on antibiotic drops as well as prednisone eyedrops throughout her admission. She has become stable. Antibiotics will be per Infectious Disease, and she will be discharged to [facility] to continue her antibiotics. VITAL SIGNS: Temperature is 98.4 degrees, heart rate 84, respirations 17, blood pressure 149/64, O2 is 99% on room air. DISCHARGE DIET: Diabetic. DISCHARGE MEDICATIONS: 1. Norvasc 10 mg p.o. at bedtime. 2. Aspirin 325 mg p.o. daily. 3. Lipitor 40 mg p.o. daily. 4. Clonidine 0.1 mg p.o. daily. 5. Apresoline 50 mg p.o. t.i.d. 6. Humalog KwikPen 8 units subcutaneous t.i.d.. 7. Imdur 120 mg p.o. daily. 8. Losartan-hydrochlorothiazide 100-12.5 mg 1 tab p.o. daily. 9. Protonix 40 mg p.o. daily. 10. Coreg 25 mg p.o. b.i.d. 11. Cipro eyedrops 2.5 mL, 1 mL both eyes q.4 hours. 12. [facility] 5 one each p.o. q.4 hours p.r.n. 13. Icar-C 1 each p.o. b.i.d. 14. Synthroid 50 mcg p.o. daily. 15. MiraLAX 17 g p.o. daily. 16. Prednisone 1 mL both eyes q.6 hours. 17. Ranexa 1000 mg p.o. b.i.d. 18. Basaglar 20 units subcutaneous at bedtime and 30 units subcutaneous q.a.m. FOLLOWUP: Ms. Dash is being discharged to [facility]. She will continue with wound care to her diabetic foot ulcer and IV antibiotics per Infectious Disease. She is to take all medications as prescribed. She can return to the ED or call 911 for any worsening of symptoms. Dictated by GEORGES Aldana for Pardeep Crook MD cc: Pardeep K. Quansah, MD Aysha MD Carson Bonilla MD Leroy F. Harris, MD Jason R. Seale, MD I have seen and examined Ms Dash today. She is clinically stable for discharge. I have reviewed and reconciled her home medications. All discharge instructions discussed. I agree with the above discharge summary. [facility]
[2018-09-06] MEDS ORDERED: KEFLEX PO SCH (21:00)
== END 2018-09-06 18:30 | disposition home health service (06) | DRG 853 ==
LOC: P.ED 11:50 → SUATTDRO 15:22 → ICU 15:22 → 3N 08-26 10:46
PROVIDERS: ATTEND Internal Medicine
CPT/HCPCS: 36430; 36569; 51702; 70450; 70545; 70548; 70553; 71010; 71045; 73630; 80048; 80053; 80202; 81001; 82009; 82550; 82553; 82607; 82728; 82746; 82805; 82948; 83036; 83540; 83550; 83605; 83735; 84100; 84484; 85025; 85027; 85045; 85610; 85730; 86850; 86900; 86901; 86920; 87040; 87070; 87077; 87088; 87186; 87324; 87449; 93005; 93010; 93306; 93312; 93971; 94760; 94761; 96361; 96365; 96368; 97110; 97162; 97167; 97530; 99285; A9270; A9579; C8929; J0131; J0360; J0690; J0696; J0878; J1650; J1815; J1940; J2020; J2270; J2405; J2543; J2997; J3370; J3480; J7030; J7040; J7050; J7070; P9016; P9047; Q9957; S0179; XXXXX

== ENCOUNTER 2018-09-09 19:43 | Inpatient (IN) ==
[2018-09-09] MEDS ORDERED: LASIX IV ONE (20:01)
[2018-09-09] MEDS ORDERED: NITROGLYCERIN TOP ONE (20:04)
--- NOTE | 2018-09-09 20:15 | PROVIDER DOCUMENTATION ---
HPI-Respiratory General - General Chief Complaint: Shortness of Breath Stated Complaint: SOB Time Seen by Provider: 09/09/18 20:00 Source: patient, EMS Allergies/Adverse Reactions: Patient Allergies Allergy/AdvReac Type Severity Reaction Status Date / Time No Known Allergies Allergy Verified 03/28/18 19:08 Home Medications: Home Medication List Medication Instructions Recorded Confirmed Last Taken Type Insulin Lispro [Humalog Kwikpen 8 dose SQ TID 03/28/18 06/14/18 Unknown History [id number]] ATORVAstatin [Lipitor] 40 mg PO DAILY 06/13/18 08/20/18 Unknown History Amlodipine [Norvasc] 10 mg PO HS 06/13/18 08/20/18 Unknown History Isosorbide Mononitrate E.r. [Imdur] 120 mg PO DAILY 06/14/18 08/20/18 Unknown History Carvedilol [Coreg] 25 mg PO BID tablet 06/17/18 08/20/18 Unknown Rx Hydrocodone/APAP 5 mg/325 mg 1 each PO Q4H PRN PRN tablet 06/17/18 08/20/18 Unknown Rx [[place]-5] Levothyroxine [Synthroid] 50 microgm PO DAILY@0700 tablet 06/17/18 08/20/18 Unknown Rx Ranolazine E.r. [Ranexa] 1,000 mg PO BID tablet 06/17/18 Unknown Rx Polyethylene Glycol 3350 [Miralax] 17 gm PO DAILY #90 powd.pack 07/07/18 Unknown Rx Aspirin EC 1 tab PO DAILY 08/20/18 08/20/18 Unknown History Clonidine HCl 0.1 mg PO DAILY 08/20/18 08/20/18 Unknown History Hydralazine [Apresoline] 50 mg PO TID 08/20/18 08/20/18 Unknown History Losartan/Hydrochlorothiazide 1 tab PO DAILY 08/20/18 08/20/18 Unknown History [Losartan-Hctz 100-12.5 mg Tab] Pantoprazole Sodium 40 mg PO DAILY 08/20/18 08/20/18 Unknown History Ciprofloxacin 0.3% Ophth Soln 1 ml BOTH EYES Q4H bottle 09/06/18 Unknown Rx [Ciloxan Ophth Soln] Insulin Glargine [Basaglar] 20 unit SUBQ QHS insuln.pen 09/06/18 Unknown Rx Insulin Glargine [Basaglar] 30 unit SUBQ QAM insuln.pen 09/06/18 Unknown Rx Iron Carbonyl/Ascorbic Acid 1 each PO BID tablet 09/06/18 Unknown Rx [Icar-C] Prednisolone 1% Oph Susp [Pred 1 ml BOTH EYES Q6H bottle 09/06/18 Unknown Rx Forte 1% Oph Suspension] - History of Present Illness-Resp Nature of Presenting Problem: Patient is a 62 year old white female with history of GA 3 weeks ago, CVA last week,diabetes, and morbid obesity who presents by [facility] ambulance for evaluation of worsening orthopnea and shortness of breath- room oxygen sat of 80% for past several hours. Denies chest pain, productive cough, or fever. Just discharge from [facility] 3 days ago. Quality of Pain: reports: none Review of Systems - Adult - REVIEW OF SYSTEMS - ADULT Constitutional: denies: chills, fever Eyes: reports: no symptoms reported Ears, Nose, Mouth & Throat: reports: no symptoms reported Cardiovascular: reports: orthopnea. denies: chest pain Respiratory: reports: see HPI, dyspnea on exertion, shortness of breath. denies: wheezing Gastrointestinal: reports: no symptoms reported Genitourinary: reports: no symptoms reported Musculoskeletal: reports: no symptoms reported Integumentary: reports: no symptoms reported Neurological: reports: no symptoms reported Hematologic/Lymphatic: reports: no symptoms reported Allergic/Immunologic: reports: no symptoms reported All Other Systems: Reviewed and Negative Past History - Adult - PAST MEDICAL HISTORY-ADULT Review of Records: reports: Old Records Reviewed, Nursing Assessment Review, Me dications Reviewed, Social history reviewed & non-contributory. Major Childhood Illnesses: reports: denies history Cardiovascular: reports: CHF, HTN, hyperlipidemia, GA Respiratory: reports: denies history Gastrointestinal: reports: GERD Obstetrical/Gynecological: reports: denies history Genitourinary: reports: denies history Musculoskeletal: reports: denies history Neurological: reports: denies history Psychiatric: reports: depression Endocrine/Immune: reports: Diabetes Other Conditions: reports: other cancer - PRIOR SURGERIES/PROCEDURES Surgical/Procedure History: reports: appendectomy, cholecystectomy, other (oophrectomy) - IMMUNIZATION STATUS Childhood Immunizations: See Nurse Assessment Flu Vaccine: See Nurse Assessment - FAMILY HISTORY Family History: CAD under 55yo (mother had heart attack at 51) Physical Exam-General - CONSTITUTIONAL General Appearance: alert, no apparent distress, obese, other (nondiaphoretic) - EYES Eyes: other (clear, nonicteric) - NECK Neck: non-tender, full range of motion, supple - RESPIRATORY Respiratory: decreased breath sounds, rales (coarse bilateral basilar rales) - CARDIOVASCULAR Cardiovascular: regular rate, rhythm - GASTROINTESTINAL (ABDOMEN) Abdominal Exam: non tender, soft. negative: guarding, rebound, tenderness - LYMPHATIC Lymphatic: no adenopathy - MUSCULOSKELETAL Back Exam: normal inspection, no CVA tenderness Extremity: non-tender, swelling Peripheral Pulses: radial (R): 2+, radial (L): 2+ - SKIN Integumentary: normal color, normal turgor - NEUROLOGIC Neurologic: grossly normal - PSYCHIATRIC Psych/Mental Status: anxious Progress - PLAN OF CARE/RESULTS Progress/Plan/Lab Results: Vital Signs - 8 hr 09/09/18 20:59 Temperature 97.9 F Pulse Rate 84 Respiratory Rate 23 Blood Pressure 124/70 O2 Sat by Pulse Oximetry 93 L Laboratory Results - last 24 hr 09/09/18 09/09/18 09/09/18 20:20 20:20 20:20 WBC 14.59 H RBC 3.24 L Hgb 9.1 L Hct 28.9 L MCV 89.2 MCH 28.1 MCHC 31.5 L RDW Std Deviation 16.1 H Plt Count 392 MPV 9.6 Immature Gran % (Auto) 0.8 H Neut % (Auto) 79.0 H Lymph % (Auto) 10.1 L [place] % (Auto) 7.4 Eos % (Auto) 2.3 Baso % (Auto) 0.4 Immature Gran # (Auto) 0.11 H Neut # (Auto) 11.52 H Lymph # (Auto) 1.48 [place] # (Auto) 1.08 H Eos # (Auto) 0.34 Baso # (Auto) 0.06 Sodium 133 L Potassium 5.6 H Chloride 100 Carbon Dioxide 21 L Anion Gap 12 BUN 43 H Creatinine 1.0 H Estimated GFR/1.73 m2 56 BUN/Creatinine Ratio 43 Glucose 309 H Calculated Osmolality 289 Calcium 8.0 L Total Bilirubin 0.71 AST 19 ALT 7 L Alkaline Phosphatase 68 Creatine Kinase 113 Troponin T Qdn-Y-Upvyzuwfgbu Pept Total Protein 7.6 Albumin 3.3 L Globulin 4.3 Albumin/Globulin Ratio 0.8 Plasma Lactate 1.8 03/07/19 03/07/19 20:20 20:20 WBC RBC Hgb Hct MCV MCH MCHC RDW Std Deviation Plt Count MPV Immature Gran % (Auto) Neut % (Auto) Lymph % (Auto) [place] % (Auto) Eos % (Auto) Baso % (Auto) Immature Gran # (Auto) Neut # (Auto) Lymph # (Auto) [place] # (Auto) Eos # (Auto) Baso # (Auto) Sodium Potassium Chloride Carbon Dioxide Anion Gap BUN Creatinine Estimated GFR/1.73 m2 BUN/Creatinine Ratio Glucose Calculated Osmolality Calcium Total Bilirubin AST ALT Alkaline Phosphatase Creatine Kinase Troponin T 0.050 Prz-M-Hwufhhaxbuo Pept 1871 H Total Protein Albumin Globulin Albumin/Globulin Ratio Plasma Lactate Orders Category Date Time Status Cardiac Monitoring DIRECTED Care 09/09/18 20:03 Active Saline Loc NOW Care 09/09/18 20:01 Active CHEST-PORTABLE [RAD] Stat Exams 09/09/18 20:01 Completed BLOOD CULTURE [BLDCUL] Stat Lab 09/09/18 21:07 Results CBC WITH DIFF [HEME] Stat Lab 09/09/18 20:20 Completed CK PROFILE [SP CHEM] Stat Lab 09/09/18 20:20 Completed COMPREHENSIVE METABOLIC PANEL [CHEM] Stat Lab 09/09/18 20:20 Completed LACTATE, PLASMA [CHEM] Stat Lab 09/09/18 20:20 Completed PRO B-NATRIURETIC PEPTIDE Stat Lab 09/09/18 20:20 Completed TROPONIN T Stat Lab 09/09/18 20:20 Completed URINALYSIS W/POSS RFLX CULT [URINALYSIS] Stat Lab 09/09/18 21:14 Uncollected CefTRIAXONE [Rocephin] 1 gm Med 09/09/18 21:14 Active 0.9% Sodium Chloride Inj [Ns] 50 ml IV NOW Furosemide [Lasix] Med 09/09/18 20:01 Discontinued 60 mg IV NOW ONE Hydrocodone/APAP 5 mg/325 mg [[place]-5] Med 09/09/18 21:06 Discontinued 1 each PO NOW ONE Nitroglycerin Med 09/09/18 20:04 Discontinued 0.5 inch TOP NOW ONE Oxygen Device Stat Oth 09/09/18 20:05 Active Pulse Oximetry Stat Oth 09/09/18 20:01 Active EKG [EKG] Stat Ther 09/09/18 20:02 Ordered Result Diagrams: 09/09/18 20:20 09/09/18 20:20 - EKG 1 Time of EKG reading by physician:: 19:48 EKG Read and Signed by:: Eris Dutton Rate: 90 Rhythm: NSR [place]: left QRS: LVH ST Wave: non-specific ST changes Comments: no STEMI - CONSULTS/PCP/HOSPITALIST Notification #1 *Consult/PCP/Hospitalist*: Dr. Tolentino, hospitalist Time Discussed: 21:25 Consult Disposition: Admit Departure - Departure Date of Disposition Decision: 09/09/18 Time of Disposition Decision: 21:38 DIAGNOSIS: CHF (congestive heart failure) Qualifiers: Heart failure type: unspecified Heart failure chronicity: acute on chronic Qualified Code(s): I50.9 - Heart failure, unspecified Urinary tract infection Qualifiers: Urinary tract infection type: site unspecified Hematuria presence: without hematuria Qualified Code(s): N39.0 - Urinary tract infection, site not specified Leukocytosis Qualifiers: Leukocytosis type: unspecified Qualified Code(s): D72.829 - Elevated white blood cell count, unspecified Uncontrolled diabetes mellitus Qualifiers: Diabetes mellitus type: type 2 Glycemic state: with hyperglycemia Qualified Code(s): E11.65 - Type 2 diabetes mellitus with hyperglycemia Disposition: ADMITTED INPATIENT 09 Certified Medical Emergency: Emergent Condition: Stable Referrals and Follow-Ups: Marco Antonio Erwin DO [Primary Care Provider] - - Critical Care Note This patient required my direct & personal management of CC.: No Attestation - Physician/ MANUELA Attestation Patient care was provided by Advanced Practice Provider:: No The physician spent face to face time with patient:: Yes Advanced Practice Provider documentation review:: Supervising physician onsite and consulted in the evaluation and care of this patient. The physician did have a face to face encounter with the patient.
--- NOTE | 2018-09-09 20:41 | Diag Imaging Result Doc PS360 ---
EXAM: CHEST-PORTABLE INDICATION: sob,orthopnea TECHNIQUE: One view COMPARISON: 08/30/2018 FINDINGS: Inspiration is suboptimal. There is a left PICC line in stable position. There are increased vascular markings suggesting pulmonary venous congestion. There is mild interstitial thickening suggesting mild edema. There is no evidence of pleural fluid collection or pneumothorax. The cardiac silhouette is unremarkable. IMPRESSION: Pulmonary venous congestion and mild edema. Electronically signed by Omari Paz 09/09/2018 8:38 PM
[2018-09-09 20:55] LABS: BASO# 0.06 X1000 (0.0-0.2); BASO% 0.4 % (0.0-0.8); EOS# 0.34 X1000 (0.0-0.7); EOS% 2.3 % (0.0-10.0); HEMATOCRIT 28.9 % (37.0-47.0); HEMOGLOBIN 9.1 g/dL (12.0-16.0); IMM GRAN# 0.11 X1000 (0.0-0.04); IMM GRAN% 0.8 % (0.0-0.5); LYMPH# 1.48 X1000 (1.2-3.4); LYMPH% 10.1 % (20.5-51.1); MCH 28.1 PG (27-31); MCHC 31.5 g/dL (33-37); MCV 89.2 FL (81-99); MONO# 1.08 X1000 (0.11-0.59); MONO% 7.4 % (1.7-9.3); MPV 9.6 FL (7.4-10.4); NEUT# 11.52 X1000 (1.4-6.5); PLT 392 X1000 (130-400); RBC 3.24 XMIL (4.2-5.4); RDW 16.1 % (11.5-14.5); WBC 14.59 X1000 (4.8-10.8)
[2018-09-09 21:05] LABS: ALB/GLOB RATIO 0.8; ALBUMIN 3.3 g/dL (3.5-5.0); POTASSIUM 5.6 mmol/L (3.5-5.1); TOTAL BILIRUBIN 0.71 mg/dL (0.20-1.00); TOTAL PROTEIN 7.6 g/dL (6.3-8.3)
[2018-09-09] MEDS ORDERED: NORCO-5 PO ONE (21:06)
[2018-09-09] MEDS ORDERED: ROCEPHIN 1 GM in NS 50 ML IV ONE (21:14)
[2018-09-09] MEDS ORDERED: KAYEXALATE PO ONE (21:59)
[2018-09-09 22:16] LABS: URINE SOURCE CATH
[2018-09-09 22:19] LABS: BILIRUBIN URINE NEGATIVE (NEGATIVE); BLOOD URINE NEGATIVE (NEGATIVE); COLOR YELLOW; GLUCOSE URINE NEGATIVE (NEGATIVE); KETONE URINE NEGATIVE (NEGATIVE); LEUKOCYTES URINE SMALL (NEGATIVE); NITRITE URINE NEGATIVE (NEGATIVE); PH URINE 5.5; PROTEIN URINE 30 mg/dL (NEGATIVE); SP GRAVITY URINE 1.004; TURBIDITY URINE HAZY (CLEAR); UROBILINOGEN URINE NORMAL (NORMAL)
--- NOTE | 2018-09-09 22:41 | Diag Imaging Result Doc PS360 ---
CT ANGIOGRM PULMONARY ARTERIES - 09/09/2018 INDICATION: PE suspected TECHNIQUE: Axial CT images were obtained after administering intravenous contrast. Coronal MIP images were generated. COMPARISON: None FINDINGS: There is no pulmonary embolism. There is a left PICC line in good position. Heart size is normal with no pericardial effusion. There are cholecystectomy clips. Otherwise upper abdominal images are unremarkable. There is interstitial pulmonary edema. There are also patchy infiltrates in the lung bases bilaterally most notably in the left lower lobe. There are moderate degenerative changes of the spine. No acute or suspicious bony lesion. IMPRESSION: Negative for pulmonary embolism. Pulmonary edema. Patchy bilateral infiltrates suggesting pneumonia. This exam was performed using automated exposure control, adjustment of mA or kV according to patient size, and/or use of iterative reconstruction technique Electronically signed by Chau Zarate 09/09/2018 10:39 PM
[2018-09-09 22:56] LABS: UR EPITHELIAL CELLS <10 /HPF (<10); URINE BACTERIA 4+ /HPF; URINE CASTS NONE SEEN; URINE CRYSTALS NONE SEEN; URINE RBC <10 /HPF (<10); URINE SMALL ROUND CELLS NONE SEEN; URINE YEAST PRESENT
[2018-09-09] MEDS ORDERED: CILOXAN OPHTH SOLN BOTH EYES SCH (23:34)
[2018-09-09] MEDS ORDERED: ZOFRAN IV PRN (23:34)
[2018-09-09] MEDS ORDERED: CUBICIN 600 MG in NS 100 ML IV SCH (23:34)
[2018-09-09] MEDS ORDERED: PRED FORTE 1% OPH SUSPENSION BOTH EYES SCH (23:34)
[2018-09-09] MEDS ORDERED: MAXIPIME 1 GM in NS 50 ML IV SCH (23:34)
--- NOTE | 2018-09-09 23:38 | HISTORY AND PHYSICAL ---
CHIEF COMPLAINT: Shortness of breath. PRIMARY CARE PHYSICIAN: Dr. Marcus Erwin. HISTORY OF PRESENT ILLNESS: This is a chronically ill-appearing, 62-year-old female with past medical history of coronary artery disease, diabetes, hypertension, hyperlipidemia, who was recently discharged from hospital 3 days ago for streptococcal bacteremia, MRSA infection on the right, diabetic foot ulcer, uncontrolled diabetes mellitus, acute kidney injury, and also CVA who, apparently, was supposed to be sent to rehab facility, [facility], but according to the family, because of the because of the IV antibiotics they refused the admission, so finally patient went home with home care. As per family, home health nurse has seen this patient at 1 p.m. today and she was doing okay. Around 6 p.m., the patient started complaining of difficulty in breathing, so an ambulance was called and she was found to have an O2 saturation of 80% on room air. The patient was sent home on room air and she was saturating 95% to 100% during the last 2 to 3 days she was in the hospital. Upon my evaluation, she reports that she was complaining of chest pressure and chest palpitations. She was seen here for streptococcal bacteremia, and so far she had a transesophageal echocardiogram done on August 25, which basically showed ejection fraction of 60% with some mitral regurgitation. Family reports that she is not too much active. She is becoming more and more weak. Because I am suspecting a pulmonary embolism, I am ordering a stat CT angio of the chest considering this very acute new onset shortness of breath and requiring from room air to now requiring Venturi mask. At the time of my evaluation, the exam has been just ordered and results, of course, are pending. PAST MEDICAL HISTORY: 1. Coronary artery disease. 2. Hypertension. 3. Diabetes mellitus type 2, not well controlled. 4. Medical noncompliance. 5. Hyperlipidemia. 6. Chronic diabetic foot ulcer with history of Morganella and MRSA. 7. The patient has streptococcal bacteremia and she was sent home with daptomycin. Streptococcal bacteremia on presentation during her last hospitalization with MRSA infection on the right diabetic foot ulcer, so she was sent home with daptomycin. 8. History of CVA with imaging showing multiple areas of restriction diffusion. 9. Bilateral conjunctivitis, currently receiving ciprofloxacin and prednisone eye drops. PAST SURGICAL HISTORY: 1. Cholecystectomy. 2. Appendectomy. 3. Right oophorectomy. 4. Heart catheterization. SOCIAL HISTORY: The patient lives with daughter. Patient denies using any tobacco, drinking alcohol, or using illicit drugs. ALLERGIES: No known drug allergies. FAMILY HISTORY: Noncontributory. REVIEW OF SYSTEMS: Eleven systems were reviewed and all symptoms are related to H and P. PHYSICAL EXAMINATION: VITALS: Temperature 97.9 degrees, heart rate 84, respiratory rate 22, blood pressure 134/70, O2 saturation 93% on Venturi mask. GENERAL: This is a chronically ill appearing, 62-year-old female lying in bed, in no acute distress. HEENT: Head is normocephalic, atraumatic. Pupils equal, round, reactive to light and accommodation. There is conjunctival irritation. NECK: No JVD noted. No carotid bruits. No lymphadenopathy. No thyromegaly. CARDIOVASCULAR: S1, S2 heard. No murmurs, gallops, or rubs. Regular rate and rhythm. RESPIRATORY: There is minimal crackles in both pulmonary bases. Patient not using any accessory muscles or having work of breathing. ABDOMEN: Soft, nontender to palpation. Bowel sounds present. No organomegaly. EXTREMITIES: No clubbing or cyanosis. Mild edema of 2+ in both lower extremities. Peripheral pulses present in both legs. NEUROLOGICAL: The patient is a little bit lethargic but followed commands. Speech is slow but coherent. Moves 4 extremities spontaneously. LABORATORY DATA: White cell count 14.59, hemoglobin 9.1, hematocrit 28.9, platelets 392,000. Potassium 5.6, sodium 133, creatinine 1.1. Blood sugar 309. Troponin 0.050. ASSESSMENT AND PLAN: 1. Acute hypoxemic respiratory failure. Patient basically came to the hospital complaining of new onset acute shortness of breath. Differential includes pulmonary embolism. Considering his mental status, could be also pneumonia. In any case, I prefer to go ahead and do an ABG. We are going to do a CT angiogram of the chest STAT. Of course, the results are not available at time of my dictation. The patient also is going to be provided breathing treatments as needed. For better monitoring we are going to send this patient to the [facility]. 2. Uncontrolled diabetes mellitus type 2. We are going to check hemoglobin A1c. Will place this patient on sliding scale insulin, moderate level. The patient is Basaglar basal insulin. Because she was not eating better, I prefer to see her more awake and alert to restart basal insulin. 3. Hyperkalemia. Even though the renal function is okay, potassium is 5.6, we will provide 1 dose of Kayexalate, and we will check BMP tomorrow at 6 a.m. 4. Bilateral diabetic foot ulcers. Patient, apparently, according to the last note from Dr. Abarca, they mention that they are going to do an MRI to check this patient has osteomyelitis and if not they will change it to Ancef. In any case, at this point, we are going to check CK to rule out any rhabdomyolysis as adverse reaction from Daptomycin. If that is negative, will continue with it. The patient has been taking cephalexin for urinary tract infection. At this point, I will start cefepime 1 g IV q.[address] Abarca is going to be consulted to decide what antibiotic this patient will continue in the hospital. 5. History of coronary artery disease. Even though the patient is not complaining of any overt chest pain, considering her history of this condition we will check troponin's 3 times a day. We are not going to order any echocardiogram because she had a recent transesophageal echocardiogram done on August 25. 6. Chronic diabetic foot ulcers. We are going to consult Wound Care. 7. Further recommendations to follow according to the clinical situation with the patient. cc: Nicolas Woo MD MTDChris
[2018-09-09 23:56] LABS: ALLEN TEST YES; BE -4.3 mmoll (-3.0-3.0); BLOOD TYPE ARTERIAL; HCO3-(ACT) 21.5 mmoll (20.0-26.0); METHB 0.9 % (0.0-1.5); O2(CT) 16.2 mL/dL (15.0-23.0); O2HB 92.3 % (95.0-99.0); PCO2(98.6) 34 mmHg (35-45); PO2(98.6) 67 mmHg (60-100); SAMPLE BLOOD; SAO2 95.3 % (95.0-100.0); THB 12.5 g/dL (11.5-17.4); pH(98.6) 7.38 (7.35-7.45)
[2018-09-09 23:57] LABS: MODALITY CANNULA
[2018-09-10 01:02] LABS: HEMOGLOBIN A1C 7.2 % (4.8-6.0)
[2018-09-10] MEDS: PRED FORTE 1% OPH SUSPENSION BOTH EYES SCH ×5 (02:36→23:40)
[2018-09-10] MEDS: CILOXAN OPHTH SOLN BOTH EYES SCH ×6 (02:36→21:28)
[2018-09-10] MEDS: LOVENOX SUBQ SCH (02:36)
[2018-09-10] MEDS ORDERED: CALMOSEPTINE OINTMENT TOP PRN (03:08)
[2018-09-10 05:15] LABS: ALLEN TEST YES; BE -3.2 mmoll (-3.0-3.0); BLOOD TYPE ARTERIAL; HCO3-(ACT) 22.4 mmoll (20.0-26.0); METHB 1.2 % (0.0-1.5); O2(CT) 12.2 mL/dL (15.0-23.0); O2HB 96.1 % (95.0-99.0); PCO2(98.6) 33 mmHg (35-45); PO2(98.6) 104 mmHg (60-100); SAMPLE BLOOD; SAO2 99.2 % (95.0-100.0); THB 8.9 g/dL (11.5-17.4); pH(98.6) 7.41 (7.35-7.45)
[2018-09-10 05:17] LABS: MODALITY CANNULA
[2018-09-10] MEDS: HUMALOG SUBQ SCH ×4 (06:18→21:27)
[2018-09-10 07:14] LABS: AGAP 12; BUN 42 mg/dL (8-22); CALCIUM 8.9 mg/dL (8.8-10.2); CHLORIDE 102 mmol/L (98-107); CK TOTAL 87 U/L (24-173); COSMO 285; CREATININE 0.9 mg/dL (0.5-0.9); ESTIMATED GFR > 60; GLUCOSE 211 mg/dL (70-104); SODIUM 134 mmol/L (136-145); TCO2 20 mmol/L (25-35)
--- NOTE | 2018-09-10 07:14 | EKG Report ---
Test Performed on : 09/09/2018 7:47:55 PM Test Reason : SOB Blood Pressure : / mmHG Vent. Rate : 090 BPM Atrial Rate : 090 BPM P-R Int : 178 ms QRS Dur : 072 ms QT Int : 344 ms P-R-T Axes : 017 -02 086 degrees QTc Int : 420 ms Poor data quality, interpretation may be adversely affected Normal sinus rhythm. Moderate voltage criteria for LVH, may be normal variant T wave abnormality, consider lateral ischemia Abnormal ECG When compared with ECG of 20-AUG-2018 18:24, Nonspecific T wave abnormality no longer evident in Anterior leads Unconfirmed Result
[2018-09-10 07:16] LABS: BASO# 0.03 X1000 (0.0-0.2); BASO% 0.2 % (0.0-0.8); EOS# 0.23 X1000 (0.0-0.7); EOS% 1.7 % (0.0-10.0); HEMATOCRIT 26.6 % (37.0-47.0); HEMOGLOBIN 8.5 g/dL (12.0-16.0); IMM GRAN# 0.06 X1000 (0.0-0.04); IMM GRAN% 0.5 % (0.0-0.5); LYMPH# 1.62 X1000 (1.2-3.4); LYMPH% 12.2 % (20.5-51.1); MCH 28.3 PG (27-31); MCV 88.7 FL (81-99); MONO# 1.16 X1000 (0.11-0.59); MONO% 8.8 % (1.7-9.3); MPV 9.8 FL (7.4-10.4); NEUT# 10.15 X1000 (1.4-6.5); NEUT% 76.6 % (42.2-75.2); PLT 382 X1000 (130-400); RDW 15.9 % (11.5-14.5); WBC 13.25 X1000 (4.8-10.8)
[2018-09-10] MEDS: PRILOSEC PO SCH (08:52)
[2018-09-10] MEDS: LASIX IV SCH ×2 (08:52→21:27)
[2018-09-10] MEDS: SANTYL OINT TOP SCH (10:50)
[2018-09-10] MEDS: ZYVOX 600 MG/D5W 600 MG/300 ML IVPB IV SCH (12:15)
[2018-09-10] MEDS: MAXIPIME 2 GM in NS 50 ML IV SCH (12:15)
[2018-09-10] MEDS: NORCO-5 PO PRN ×2 (12:17→17:07)
--- NOTE | 2018-09-10 13:23 | INFECTIOUS DISEASE PROGRESS NO ---
DATE: 09/10/2018 CONCLUSION: The patient is readmitted to the hospital with severe dyspnea. The pulmonary angiogram shows that pulmonary edema is present and in addition, there are patchy infiltrates which the radiologist felt could be pneumonia. I had been recently treating the patient for an Escherichia coli urinary tract infection and she needed 7 more days of treatment. However, based on her urinalysis, it looks like she has developed a new urinary tract infection. The other infection I was treating the patient for is her right foot. She has had methicillin-resistant Staph aureus infection on her toes. An MRI done months ago did not show osteomyelitis. MEDICATIONS: The patient is on now a combination of daptomycin and cefepime. PHYSICAL EXAMINATION: Vital Signs: Temperature is 98.4 degrees, pulse 87, respirations 18, blood pressure is 134/69. General: This is a chronically ill-appearing, middle-aged female. She is in no acute distress. Head, eyes, ears, nose, and throat: She can hear my spoken words and see near objects. There is no drainage from the nose or ears. Neck: No meningismus. Lungs: There were bibasilar rales. Cardiovascular: Heart rate is regular. Abdomen: Soft and nontender. Extremities: The patient has a PICC in the left arm. The PICC site is not erythematous or swollen. The patient's right foot shows some superficial wounds which have eschars on them and there is no surrounding erythema. Neurologic: The patient is lethargic but she did move her extremities to request. LAB AND X-RAY: CBC shows a white count of 13,250, hemoglobin 8.5, and platelet count 382,000. The creatinine is 0.9, GFR is greater than 60. Blood gases show a pH of 7.41, a PO2 of 104, and a pCO2 of 33. Urinalysis shows white cells and bacteria. Blood and urine cultures are pending. Pulmonary angiogram showed the combination of pulmonary edema and patchy bilateral infiltrates suggestive of pneumonia. ASSESSMENT AND PLAN: The patient comes in with probable pulmonary edema but there also may be pneumonia involved. I agree with treating the patient with cefepime. I am going to discontinue daptomycin because if there is methicillin-resistant Staph aureus involved in the pneumonia, then daptomycin is not effective because it does not get in high enough concentration into the lungs. What I am going to do is substitute Zyvox for daptomycin. The Zyvox will give coverage for methicillin-resistant Staph aureus in the lungs as well as in the feet. As regarding the patient's urinary tract infection, it appears that she has most likely developed an new one and I will be waiting for the susceptibility testing before I make a change in the antibiotics for it. Also, I am going to order a procalcitonin level because it could help differentiate the pulmonary congestion from pneumonia. COMORBIDITIES: She has morbid obesity. She is a diabetic and she has a history of chronic diabetic foot ulcers. She also has a history of medical noncompliance. cc: Alexandr Abarca MD MTDD
--- NOTE | 2018-09-10 18:19 | PROGRESS NOTE ---
DATE: 09/10/2018 SUBJECTIVE: The patient is resting comfortably in bed. She does complain of shortness of breath but no coughing or chest pain. She also complains of pain in her back. OBJECTIVE: Vital Signs: T-max 100.4 degrees, blood pressure 134/64, heart rate 89, respirations 21, O2 saturations 99% on 5 L nasal cannula. General: This is a chronically ill-appearing female lying in bed in no acute distress. Heart: S1, S2 normal. Regular rate and rhythm. Lungs: Coarse breath sounds bilaterally with rhonchi. Abdomen: Positive bowel sounds. Soft, nontender, nondistended. Extremities: 1+ edema. The right foot is wrapped. Neurologic: The patient is awake and alert. LABS: White blood cell count 13, hemoglobin 8.5, hematocrit 26, platelets 382,000. Sodium 134, potassium 5, chloride 102, CO2 20, BUN 42, creatinine 0.9, glucose 211. ASSESSMENT AND PLAN: 1. Acute hypoxemic respiratory failure. The pulmonary arteriogram is showing pneumonia and pulmonary edema. The patient is currently on diuretic therapy and IV antibiotic therapy. We will continue to monitor the patient closely for improvement. 2. Acute pulmonary edema. Continue with diuretic therapy. 3. Pneumonia. Continue with IV antibiotic therapy and bronchodilator therapy as directed by Dr. Abarca. 4. Right foot infection secondary to MRSA. Continue with antibiotic therapy. 5. Urinary tract infection secondary to Escherichia coli. Continue with IV antibiotic therapy. 6. Morbid obesity. Aware. 7. Leukocytosis. Improved. Continue with IV antibiotic therapy. 8. Anemia. Stable. 9. Uncontrolled diabetes mellitus. We will restart Lantus twice a day. 10. Hypothyroidism. Continue on Synthroid. 11. Hypertension. Controlled. Continue on the current antihypertensive regimen. 12. Deep vein thrombosis prophylaxis. Continue on Lovenox. cc: Caren Kelley MD [facility]
--- NOTE | 2018-09-10 21:45 | Extremity Venous Study ---
PROCEDURE NAME: Venous U/S Bilateral Legs - 09/10/2018 STUDY: Bilateral lower extremity venous ultrasound. EDGING MACHINE CATCHER: Kar. REQUESTING PHYSICIAN: Nicolas Woo MD INDICATIONS: Elevated D-dimer. FINDINGS: The deep and superficial veins of the bilateral lower extremities are visualized along their course. All veins appear compressible with forward flow. No evidence of intraluminal thrombus. SUMMARY: No deep or superficial venous thrombosis in bilateral lower extremities. cc: MD Nicolas Ornelas MD
[2018-09-11] MEDS: ZYVOX 600 MG/D5W 600 MG/300 ML IVPB IV SCH ×3 (00:19→23:33)
[2018-09-11] MEDS: CILOXAN OPHTH SOLN BOTH EYES SCH ×7 (00:19→23:34)
[2018-09-11] MEDS: MAXIPIME 2 GM in NS 50 ML IV SCH ×2 (00:20→12:21)
[2018-09-11] MEDS: NORCO-5 PO PRN ×3 (01:30→21:15)
[2018-09-11] MEDS: PRED FORTE 1% OPH SUSPENSION BOTH EYES SCH ×4 (05:31→22:46)
[2018-09-11 06:11] LABS: BASO# 0.03 X1000 (0.0-0.2); BASO% 0.3 % (0.0-0.8); EOS# 0.31 X1000 (0.0-0.7); EOS% 2.9 % (0.0-10.0); HEMATOCRIT 28.9 % (37.0-47.0); HEMOGLOBIN 9.1 g/dL (12.0-16.0); IMM GRAN# 0.08 X1000 (0.0-0.04); IMM GRAN% 0.7 % (0.0-0.5); LYMPH# 1.58 X1000 (1.2-3.4); LYMPH% 14.7 % (20.5-51.1); MCH 28.3 PG (27-31); MCHC 31.5 g/dL (33-37); MONO# 1.06 X1000 (0.11-0.59); MONO% 9.9 % (1.7-9.3); MPV 9.7 FL (7.4-10.4); NEUT% 71.5 % (42.2-75.2); PLT 347 X1000 (130-400); RBC 3.21 XMIL (4.2-5.4); RDW 16.3 % (11.5-14.5); WBC 10.76 X1000 (4.8-10.8)
[2018-09-11] MEDS: HUMALOG SUBQ SCH ×4 (06:25→21:15)
[2018-09-11] MEDS: LOVENOX SUBQ SCH (06:26)
[2018-09-11 06:30] LABS: AGAP 13; BUN 31 mg/dL (8-22); CALCIUM 8.9 mg/dL (8.8-10.2); CHLORIDE 99 mmol/L (98-107); CK TOTAL 78 U/L (24-173); COSMO 279; CREATININE 0.9 mg/dL (0.5-0.9); ESTIMATED GFR > 60; GLUCOSE 206 mg/dL (70-104); MAGNESIUM 1.7 mg/dL (1.5-2.7); PHOSPHORUS 4.6 mg/dL (2.7-4.5); POTASSIUM 4.2 mmol/L (3.5-5.1); SODIUM 133 mmol/L (136-145); TCO2 21 mmol/L (25-35)
[2018-09-11] MEDS: PRILOSEC PO SCH (09:56)
[2018-09-11] MEDS: LASIX IV SCH ×2 (09:56→21:15)
[2018-09-11] MEDS: SANTYL OINT TOP SCH (09:58)
[2018-09-11 11:53] LABS: URINE SOURCE CATH
[2018-09-11 11:59] LABS: BILIRUBIN URINE NEGATIVE (NEGATIVE); BLOOD URINE TRACE (NEGATIVE); COLOR YELLOW; GLUCOSE URINE NEGATIVE (NEGATIVE); KETONE URINE NEGATIVE (NEGATIVE); LEUKOCYTES URINE LARGE (NEGATIVE); NITRITE URINE NEGATIVE (NEGATIVE); PROTEIN URINE TRACE mg/dL (NEGATIVE); TURBIDITY URINE HAZY (CLEAR); UROBILINOGEN URINE NORMAL (NORMAL)
[2018-09-11 12:13] LABS: UR EPITHELIAL CELLS <10 /HPF (<10); URINE BACTERIA NEGATIVE /HPF; URINE RBC <10 /HPF (<10); URINE WBC TNTC /HPF (<10)
[2018-09-11 12:20] LABS: URINE CASTS NONE SEEN; URINE CRYSTALS NONE SEEN; URINE SMALL ROUND CELLS NONE SEEN; URINE YEAST PRESENT
[2018-09-11] MEDS ORDERED: AYR NASAL SPRAY NAS PRN (18:05)
--- NOTE | 2018-09-11 20:17 | PROGRESS NOTE ---
DATE: 09/11/2018 SUBJECTIVE: The patient is resting comfortably in bed. She states that she wants to go home. OBJECTIVE: Vital Signs: Temperature 98.6 degrees, blood pressure 120/59, heart rate 88, respirations 18, O2 saturation 100% on 5 L nasal cannula. General: This is a morbidly obese female lying in bed in no acute distress. Heart: S1, S2 normal. Regular rate and rhythm. Lungs: Equal air entry bilaterally. No crackles. Abdomen: Positive bowel sounds. Soft, nontender, nondistended. Extremities: The right foot is wrapped in a clean, dry dressing. The right arm is swollen. Neurologic: The patient is alert and oriented x3. LABORATORY DATA: White blood cell count 10, hemoglobin 9.1, hematocrit 28, platelets 347,000. Sodium 133, potassium 4.2, chloride 99, CO2 is 21, BUN 31, creatinine 0.9, glucose 206. Phosphorus 4.6, magnesium 1.7. ASSESSMENT AND PLAN: 1. Pneumonia. Continue with antibiotic therapy. 2. Acute pulmonary edema. Continue on diuretic therapy. 3. Right foot infection secondary to methicillin-resistant Staphylococcus aureus. Continue with the current antibiotic therapy and wound care. 4. Morbid obesity. Aware. 5. Urinary tract infection secondary to Enterobacter. Continue with the current antibiotic regimen. 6. Anemia. Stable. 7. Diabetes mellitus type 2. 8. Hypothyroidism. Continue on Synthroid. 9. Bilateral conjunctivitis. Continue on the antibiotic eyedrops. 10. Hypertension. Controlled. 11. Deep vein thrombosis prophylaxis. Continue on Lovenox. cc: Caren Kelley MD MTDD
[2018-09-11] MEDS: BASAGLAR SUBQ SCH (21:16)
[2018-09-12] MEDS: MAXIPIME 2 GM in NS 50 ML IV SCH (00:17)
[2018-09-12] MEDS: MAXIPIME 2 GM in NS 100 ML IV SCH ×3 (00:17→23:54)
[2018-09-12] MEDS: NORCO-5 PO PRN ×3 (03:36→21:11)
[2018-09-12] MEDS: CILOXAN OPHTH SOLN BOTH EYES SCH ×6 (05:43→23:56)
[2018-09-12] MEDS: PRED FORTE 1% OPH SUSPENSION BOTH EYES SCH ×4 (05:43→23:55)
[2018-09-12 05:59] LABS: BASO# 0.03 X1000 (0.0-0.2); BASO% 0.3 % (0.0-0.8); EOS# 0.38 X1000 (0.0-0.7); EOS% 3.9 % (0.0-10.0); HEMATOCRIT 29.9 % (37.0-47.0); HEMOGLOBIN 9.5 g/dL (12.0-16.0); IMM GRAN# 0.09 X1000 (0.0-0.04); IMM GRAN% 0.9 % (0.0-0.5); LYMPH# 1.88 X1000 (1.2-3.4); LYMPH% 19.2 % (20.5-51.1); MCH 28.1 PG (27-31); MCHC 31.8 g/dL (33-37); MCV 88.5 FL (81-99); MONO# 0.91 X1000 (0.11-0.59); MONO% 9.3 % (1.7-9.3); MPV 9.6 FL (7.4-10.4); NEUT% 66.4 % (42.2-75.2); PLT 352 X1000 (130-400); RBC 3.38 XMIL (4.2-5.4); RDW 15.8 % (11.5-14.5); WBC 9.79 X1000 (4.8-10.8)
[2018-09-12] MEDS: LOVENOX SUBQ SCH (06:28)
[2018-09-12] MEDS: HUMALOG SUBQ SCH ×4 (06:28→21:09)
[2018-09-12 06:32] LABS: CALCIUM 8.6 mg/dL (8.8-10.2); POTASSIUM 4.4 mmol/L (3.5-5.1)
--- NOTE | 2018-09-12 07:25 | Diag Imaging Result Doc PS360 ---
EXAM: CHEST-PORTABLE 09/12/2018 HISTORY: pneumonia TECHNIQUE: AP portable at 0624 COMMENT: The inspiration is better than on 09/09/2018 and the opacity in the right lower lobe is slightly improved. Otherwise there has been no significant change in the appearance of the chest. IMPRESSION: Minimal improvement in pulmonary edema versus pneumonia. Electronically signed by Arnel Taylor 09/12/2018 7:22 AM
[2018-09-12] MEDS: PRILOSEC PO SCH (09:27)
[2018-09-12] MEDS: LASIX IV SCH ×2 (09:27→21:09)
[2018-09-12] MEDS: SANTYL OINT TOP SCH (09:32)
[2018-09-12] MEDS: ZYVOX 600 MG/D5W 600 MG/300 ML IVPB IV SCH ×2 (11:09→23:54)
--- NOTE | 2018-09-12 19:06 | PROGRESS NOTE ---
DATE: 09/12/2018 SUBJECTIVE: The patient is resting comfortably. She has no complaints. OBJECTIVE: Vital Signs: Temperature 97.4 degrees, blood pressure 151/80, heart rate 97, respirations 18, O2 saturations 100% on 5 L nasal cannula. General: This is a morbidly obese female lying in bed in no acute distress. Heart: S1, S2 normal. Regular rate and rhythm. Lungs: Equal air entry bilaterally. Abdomen: Positive bowel sounds. Soft, nontender, nondistended. Extremities: The right foot is wrapped in a clean dry dressing, no edema noted. LABS: White blood cell count 9.7, hemoglobin 9.5, hematocrit 29, platelets 352,000, sodium 132, potassium 4.4, chloride 96, CO2 22, BUN 28, creatinine 1, glucose 277. ASSESSMENT AND PLAN: 1. Pneumonia. Improved. Continue with antibiotic therapy. 2. Acute pulmonary edema. Improved. Continue on Lasix. 3. Right foot infection secondary to methicillin-resistant Staphylococcus aureus. Continue with antibiotic therapy and wound care. 4. Urinary tract infection secondary to Enterobacter. Continue with antibiotic therapy. 5. Diabetes mellitus type 2. Continue on the current insulin regimen. 6. Hypothyroidism. Continue on Synthroid. 7. Morbid obesity. Aware. 8. Hypertension. Controlled. 9. Bilateral conjunctivitis. Continue with antibiotic eye drops. 10. Deep vein thrombosis prophylaxis. Continue on Lovenox. cc: Caren Kelley MD MTDD
[2018-09-12] MEDS: BASAGLAR SUBQ SCH (21:10)
[2018-09-13] MEDS: NORCO-5 PO PRN ×2 (01:11→17:35)
[2018-09-13] MEDS: PRED FORTE 1% OPH SUSPENSION BOTH EYES SCH ×4 (04:32→23:24)
[2018-09-13] MEDS: CILOXAN OPHTH SOLN BOTH EYES SCH ×6 (04:32→23:24)
[2018-09-13] MEDS: LOVENOX SUBQ SCH (06:21)
[2018-09-13] MEDS: HUMALOG SUBQ SCH ×4 (06:21→21:48)
[2018-09-13 08:15] LABS: HEMATOCRIT 30.1 % (37.0-47.0); HEMOGLOBIN 9.7 g/dL (12.0-16.0); MCH 28.4 PG (27-31); MCHC 32.2 g/dL (33-37); MPV 9.6 FL (7.4-10.4); RBC 3.42 XMIL (4.2-5.4); RDW 15.5 % (11.5-14.5); WBC 9.56 X1000 (4.8-10.8)
[2018-09-13 08:26] LABS: AGAP 11; BUN 24 mg/dL (8-22); CALCIUM 8.7 mg/dL (8.8-10.2); CHLORIDE 99 mmol/L (98-107); COSMO 282; CREATININE 0.9 mg/dL (0.5-0.9); ESTIMATED GFR > 60; GLUCOSE 204 mg/dL (70-104); POTASSIUM 4.3 mmol/L (3.5-5.1); SODIUM 136 mmol/L (136-145); TCO2 26 mmol/L (25-35)
[2018-09-13] MEDS: LASIX IV SCH ×2 (09:02→21:46)
[2018-09-13] MEDS: PRILOSEC PO SCH (09:03)
[2018-09-13] MEDS: LEVEMIR SUBQ SCH ×2 (09:03→21:47)
[2018-09-13] MEDS: SANTYL OINT TOP SCH (09:04)
[2018-09-13] MEDS: MAXIPIME 2 GM in NS 100 ML IV SCH (11:00)
[2018-09-13] MEDS: ZYVOX 600 MG/D5W 600 MG/300 ML IVPB IV SCH (12:09)
--- NOTE | 2018-09-13 17:15 | PROGRESS NOTE ---
DATE: 09/13/2018 SUBJECTIVE: The patient is resting comfortably in bed. She is asking when she can go home. She denies having any chest pain, shortness of breath or dizziness. Her is present at the bedside. OBJECTIVE: Vital Signs: Temperature 98.1 degrees, blood pressure 101/47, heart rate 93, respirations 16, O2 saturations 100% on 5 L nasal cannula, intake 880, output 2.2 L. General: This is a chronically ill-appearing obese female lying in bed in no acute distress. Head: Normocephalic, atraumatic. Neck: Supple. No JVD. No carotid bruit. Heart: S1, S2 normal. Regular rate and rhythm. Lungs: Equal air entry bilaterally. Diminished breath sounds at the bases. No crackles, no wheezing. Abdomen: Positive bowel sounds. Soft, obese, nontender, nondistended. Extremities: No edema. The right foot is wrapped in a clean dry dressing. No discharge noted. Neurologic: The patient is alert and oriented x4. No focal neurologic deficits noted. LABS: White blood cell count 9.5, hemoglobin 9.7, hematocrit 30, platelets 388,000. Sodium 136, potassium 4.3, chloride 99, CO2 26, BUN 24, creatinine 0.9, glucose 204. ASSESSMENT AND PLAN: 1. Pneumonia. Continue with broad-spectrum antibiotics and bronchodilator therapy. 2. Acute pulmonary edema. Slowly improving. Continue on diuretic therapy. 3. Right foot infection secondary to methicillin-resistant Staphylococcus aureus. Continue with antibiotic therapy and wound care. 4. Urinary tract infection secondary to Enterobacter. Continue with antibiotic therapy. 5. Diabetes mellitus type 2. Continue on the current insulin regimen. 6. Hypothyroidism. Continue on Synthroid. 7. Morbid obesity. Aware. 8. Hypertension. Controlled. 9. Bilateral conjunctivitis. Continue with antibiotic eye drops. 10. Deep vein thrombosis prophylaxis. Continue on Lovenox. cc: Caren Kelley MD
--- NOTE | 2018-09-13 19:36 | INFECTIOUS DISEASE PROGRESS NO ---
DATE: 09/13/2018 PRESENT ILLNESS: Ms Dash was readmitted this time due to dyspnea. Her most recent chest x- ray shows improved pulmonary edema versus pneumonia. She has a procalcitonin level of 0.24 making it unlikely that she has a respiratory tract infection. There is a methicillin-resistant Staph aureus to her right foot and there is an Enterobacter urinary tract infection, however this is asymptomatic and does not need any treatment. MEDICATIONS: She has been receiving cefepime 2 g IV every 12 hours and Zyvox 600 mg IV every 12 hours. PHYSICAL EXAM: Vital Signs: Temperature is 98.1 degrees, pulse rate 94, respiratory rate 15, blood pressure 162/71, O2 saturation is 100% on 5 L nasal cannula. General: This is a chronically ill-appearing middle-aged female. She is lying in bed currently in no acute distress. HEENT: Atraumatic, normocephalic. Oral mucous membranes are pink and moist. Conjunctivae are pink. There is some redness noted to the sclerae of her left eye however her right eye has improved tremendously from her previous admission. Neck: Supple. Trachea is midline. Respiratory: Lung sounds are clear in the upper lobes. Diminished in the bases. Cardiovascular: Heart rate and rhythm are regular. Normal sinus rhythm on the monitor. Integumentary: She has a 3x1cm, erythematous area to her distal, lateral, right foot. There is a PICC line in place to her left upper arm. Site is without edema, erythema or drainage. Neurologic: She is awake, alert, and oriented. Able to move all extremities fairly well in the bed and is able to get up with assistance. LABORATORY AND X-RAY: Today her white count is 9.56, hemoglobin 9.7, platelet count 388,000, creatinine is 0.9, estimated GFR is greater than 60. Her blood cultures have shown no growth on this admission and her urine has grown an Enterobacter cloaca on one specimen and no growth on the other. No imaging reports today. However the chest x-ray yesterday showed minimal improvement and pulmonary edema versus pneumonia. ASSESSMENT AND PLAN: Ms. Dash has been treated for possible pneumonia versus pulmonary edema as well as a right foot infection and Escherichia coli urinary tract infection. At this point there is one urine culture which grew an Enterobacter and the other which showed no growth. At this point there are no symptoms so we will not treat her UTI. She is receiving Zyvox for any possible pneumonia for MRSA coverage as well as for coverage of the MRSA growing to her right foot. At this time we will discontinue cefepime and Zyvox, and start her on doxycycline 100mg p.o. every 12 hours. Since her procalcitonin level is less than 0.24 it is unlikely that she has any pneumonia, however if there is some residual infection, doxycycline will help cover any possible MRSA. The patient is very anxious to go home, so a prescription has been placed on her chart for the doxycycline. We will see her back in our office in 2 weeks. These plans have been discussed with and recommended by Dr. Abarca. COMORBIDITIES: Include that she is obese with diabetes mellitus, chronic diabetic foot ulcers and history of medical noncompliance. Dictated by GEORGES Goyal for Alexandr Abarca MD This chart was documented by, GEORGES Goyal and accurately reflects the services performed, treatment plan and medical decisions as attested by the providers signature Alexandr Abarca MD. cc: Alexandr Abarca MD [facility]
[2018-09-13] MEDS ORDERED: ZYVOX PO SCH (21:00)
[2018-09-13] MEDS: DOXYCYCLINE PO SCH (21:49)
[2018-09-14] MEDS: CILOXAN OPHTH SOLN BOTH EYES SCH ×4 (04:47→16:30)
[2018-09-14] MEDS: PRED FORTE 1% OPH SUSPENSION BOTH EYES SCH ×3 (04:47→19:35)
[2018-09-14] MEDS: LOVENOX SUBQ SCH (06:53)
[2018-09-14] MEDS: HUMALOG SUBQ SCH ×3 (06:53→16:32)
[2018-09-14 07:26] LABS: HEMATOCRIT 30.6 % (37.0-47.0); HEMOGLOBIN 9.9 g/dL (12.0-16.0); MCH 28.5 PG (27-31); MCHC 32.4 g/dL (33-37); MCV 88.2 FL (81-99); MPV 9.4 FL (7.4-10.4); RBC 3.47 XMIL (4.2-5.4); RDW 15.5 % (11.5-14.5); WBC 9.33 X1000 (4.8-10.8)
[2018-09-14 07:48] LABS: AGAP 12; BUN 26 mg/dL (8-22); CALCIUM 8.8 mg/dL (8.8-10.2); CHLORIDE 98 mmol/L (98-107); COSMO 279; CREATININE 0.7 mg/dL (0.5-0.9); ESTIMATED GFR > 60; GLUCOSE 147 mg/dL (70-104); POTASSIUM 3.8 mmol/L (3.5-5.1); SODIUM 136 mmol/L (136-145); TCO2 26 mmol/L (25-35)
[2018-09-14] MEDS: NORCO-5 PO PRN ×2 (08:58→16:27)
[2018-09-14] MEDS: DOXYCYCLINE PO SCH (09:02)
[2018-09-14] MEDS: PRILOSEC PO SCH (09:02)
[2018-09-14] MEDS: LASIX IV SCH (09:02)
[2018-09-14] MEDS: LEVEMIR SUBQ SCH (09:02)
[2018-09-14] MEDS: SANTYL OINT TOP SCH (09:04)
[2018-09-14 16:11] VITALS: BP 162/79
--- NOTE | 2018-09-14 22:46 | DISCHARGE SUMMARY ---
ADMISSION DATE: 09/09/2018 DISCHARGE DATE: 09/14/2018 PRINCIPAL DIAGNOSIS: Acute respiratory failure. SECONDARY DIAGNOSES: 1. Pneumonia. 2. Acute pulmonary edema. 3. Diabetic foot infection. 4. Urinary tract infection. 5. Diabetes mellitus type 2. 6. Hypothyroidism. 7. Hypertension. 8. Hyperlipidemia. 9. Coronary artery disease. DISCHARGE MEDICATIONS: Include the following: Doxycycline 100 mg p.o. twice a day; insulin lispro sliding scale as directed; atorvastatin 40 mg p.o. daily; amlodipine 10 mg p.o. daily; Imdur 120 mg p.o. daily; Coreg 25 mg p.o. twice a day; [place] 5/325 every 4 hours as needed; levothyroxine 50 mcg p.o. daily; Ranexa 1000 mg p.o. twice a day; MiraLAX 17 g daily; aspirin 1 tablet daily; clonidine 0.1 mg p.o. daily; losartan/hydrochlorothiazide 100/12.5 daily; hydralazine 50 mg p.o. 3 times a day; pantoprazole 40 mg p.o. daily; ciprofloxacin eyedrops 1 mL every 4 hours; Basaglar 30 units subcutaneous daily; Icar-C 1 twice a day; prednisolone ophthalmic suspension 1 mL both eyes every 6 hours. CONSULTATIONS: During this hospital stay, Dr. Alexandr Abarca, Infectious Disease. PROCEDURES: Done during this hospital stay, venous Doppler of both lower extremities which did not reveal any evidence of DVT. HOSPITAL COURSE: Ms. Vilma Dash is a 62-year-old female who was admitted to the hospital because of dyspnea. Pulmonary angiogram showed evidence of pulmonary edema. In addition, there were patchy infiltrates which the radiologist felt to be pneumonia. The patient was seeing Dr. Alexandr Abarca for E. coli urinary tract infection, and she had done a number of days; however, based on the recent urinalysis it seemed like the patient developed a new urinary tract infection. Urine culture came back positive for Enterobacter cloacae. Infectious Disease team did handle all of the antibiotic management. The other infection the patient had was that of her right foot. She was noted to have MRSA on her toes. MRI done a month ago did not show any evidence of osteomyelitis. Because of the finding of possible pulmonary edema on chest CT, the patient was also maintained on diuretics. At this time she has done well. She is stable. PHYSICAL EXAMINATION: During my evaluation today, her vital signs show as follows: Temperature 99.7 degrees, pulse 91, respirations 20, blood pressure 162/79, oxygen saturation 100%. HEENT: Atraumatic, normocephalic. Cardiovascular: S1, S2. Respiratory exam shows evidence of good air entry bilaterally. Abdomen is soft, nontender. No masses felt. Extremity: The patient does have some mild ulcers on the right foot. Central nervous system: No obvious focal deficit noted. PLAN: The patient can be discharged home today. She will need to follow up with her primary care physician and also follow up with Dr. Alexandr Abarca in the outpatient. She will need to have a followup chest x-ray done in the outpatient to make sure of resolution of pulmonary edema. I would like her also to follow up with her energy assistant as an outpatient as well. cc: Pavel Eden MD
== END 2018-09-14 20:20 | disposition home health service (06) | DRG 189 ==
LOC: ED 19:43 → EDIPHOLD 22:56 → SUATTDRO 22:56 → 3S 09-10 01:23 → 3N 09-13 00:52
PROVIDERS: ATTEND Internal Medicine
CPT/HCPCS: 71010; 71045; 71275; 80048; 80053; 81001; 82550; 82805; 82948; 83036; 83605; 83735; 83880; 84100; 84145; 84484; 85025; 85027; 87040; 87077; 87088; 87186; 93005; 93970; 96365; 96367; 96375; 97110; 97162; 97530; 99285; A9270; J0692; J0696; J0878; J1650; J1815; J1940; J2020; Q9967; XXXXX

== ENCOUNTER 2018-10-13 10:42 | Inpatient (IN) ==
--- NOTE | 2018-10-13 11:01 | EKG Report ---
Test Performed on : 10/13/2018 10:55:39 AM Test Reason : sob, cp Blood Pressure : / mmHG Vent. Rate : 078 BPM Atrial Rate : 078 BPM P-R Int : 146 ms QRS Dur : 086 ms QT Int : 390 ms P-R-T Axes : 014 014 069 degrees QTc Int : 444 ms Normal sinus rhythm. Normal ECG When compared with ECG of 09-SEP-2018 19:47, (Unconfirmed) T wave inversion no longer evident in Lateral leads Unconfirmed Result
--- NOTE | 2018-10-13 11:14 | Diag Imaging Result Doc PS360 ---
EXAM: CHEST-PORTABLE HISTORY: SOB TECHNIQUE: Chest single view COMPARISON: 09/12/2018 FINDINGS: Poor inspiratory effort. There is vascular distention. There may be underlying infiltrates as well. Trace left pleural fluid. There is a granuloma in the right base. IMPRESSION: Pulmonary edema with possible underlying pneumonia. Electronically signed by Arnoldo Napier 10/13/2018 11:12 AM
[2018-10-13 11:20] LABS: BASO# 0.05 X1000 (0.0-0.2); BASO% 0.4 % (0.0-0.8); EOS# 0.26 X1000 (0.0-0.7); HEMATOCRIT 30.3 % (37.0-47.0); HEMOGLOBIN 9.8 g/dL (12.0-16.0); IMM GRAN# 0.04 X1000 (0.0-0.04); IMM GRAN% 0.3 % (0.0-0.5); LYMPH# 1.99 X1000 (1.2-3.4); LYMPH% 15.4 % (20.5-51.1); MCH 28.2 PG (27-31); MCHC 32.3 g/dL (33-37); MCV 87.1 FL (81-99); MONO# 0.83 X1000 (0.11-0.59); MONO% 6.4 % (1.7-9.3); MPV 9.6 FL (7.4-10.4); NEUT# 9.73 X1000 (1.4-6.5); NEUT% 75.5 % (42.2-75.2); PLT 352 X1000 (130-400); RBC 3.48 XMIL (4.2-5.4); RDW 16.3 % (11.5-14.5)
[2018-10-13 11:27] LABS: INR 1.05; PROTIME 14.6 Seconds (11.0-16.0)
[2018-10-13 11:28] LABS: PTT 31.9 Seconds (22.3-41.8)
[2018-10-13 11:40] LABS: AGAP 13; ALB/GLOB RATIO 0.8; ALBUMIN 3.5 g/dL (3.5-5.0); ALKALINE PHOSPHATASE 77 U/L (32-104); BUN 19 mg/dL (8-22); CALCIUM 9.3 mg/dL (8.8-10.2); CHLORIDE 108 mmol/L (98-107); CK PROFILE 42 U/L (24-173); COSMO 283; CREATININE 0.8 mg/dL (0.5-0.9); ESTIMATED GFR > 60; GLUCOSE 87 mg/dL (70-104); GOT 12 U/L (10-30); GPT 9 U/L (10-36); POTASSIUM 4.3 mmol/L (3.5-5.1); SODIUM 141 mmol/L (136-145); TCO2 20 mmol/L (25-35); TOTAL BILIRUBIN 0.97 mg/dL (0.20-1.00); TOTAL PROTEIN 8.1 g/dL (6.3-8.3)
[2018-10-13] MEDS ORDERED: ROCEPHIN 1 GM in NS 50 ML IV ONE (12:14)
[2018-10-13] MEDS ORDERED: NS 1,000 ML IV ONE (12:14)
--- NOTE | 2018-10-13 14:10 | PROVIDER DOCUMENTATION ---
This chart was entered by Elisa Hays Scribe, acting as scribe for Luis Nicholson MD. HPI-Respiratory General - General Chief Complaint: Shortness of Breath Stated Complaint: SOB Time Seen by Provider: 10/13/18 11:53 Source: patient, EMS Allergies/Adverse Reactions: Patient Allergies Allergy/AdvReac Type Severity Reaction Status Date / Time No Known Allergies Allergy Verified 03/28/18 19:08 Home Medications: Home Medication List Medication Instructions Recorded Confirmed Last Taken Type Insulin Lispro [Humalog Kwikpen 8 dose SQ TID 03/28/18 09/10/18 Unknown History [id number]] ATORVAstatin [Lipitor] 40 mg PO DAILY 06/13/18 09/10/18 Unknown History Amlodipine [Norvasc] 10 mg PO HS 06/13/18 09/10/18 Unknown History Isosorbide Mononitrate E.r. [Imdur] 120 mg PO DAILY 06/14/18 09/10/18 Unknown History Carvedilol [Coreg] 25 mg PO BID tablet 06/17/18 09/10/18 Unknown Rx Hydrocodone/APAP 5 mg/325 mg 1 each PO Q4H PRN PRN tablet 06/17/18 09/10/18 Unknown Rx [[place]-5] Levothyroxine [Synthroid] 50 microgm PO DAILY@0700 tablet 06/17/18 09/10/18 Unknown Rx Ranolazine E.r. [Ranexa] 1,000 mg PO BID tablet 06/17/18 09/10/18 Unknown Rx Polyethylene Glycol 3350 [Miralax] 17 gm PO DAILY #90 powd.pack 07/07/18 09/10/18 Unknown Rx Aspirin EC 1 tab PO DAILY 08/20/18 09/10/18 Unknown History Clonidine HCl 0.1 mg PO DAILY 08/20/18 09/10/18 Unknown History Hydralazine [Apresoline] 50 mg PO TID 08/20/18 09/10/18 Unknown History Losartan/Hydrochlorothiazide 1 tab PO DAILY 08/20/18 09/10/18 Unknown History [Losartan-Hctz 100-12.5 mg Tab] Pantoprazole Sodium 40 mg PO DAILY 08/20/18 09/10/18 Unknown History Ciprofloxacin 0.3% Ophth Soln 1 ml BOTH EYES Q4H bottle 09/06/18 09/10/18 09/10/18 02:36 Rx [Ciloxan Ophth Soln] Insulin Glargine [Basaglar] 20 unit SUBQ QHS insuln.pen 09/06/18 09/10/18 Unknown Rx Insulin Glargine [Basaglar] 30 unit SUBQ QAM insuln.pen 09/06/18 09/10/18 Un known Rx Iron Carbonyl/Ascorbic Acid 1 each PO BID tablet 09/06/18 09/10/18 Unknown Rx [Icar-C] Prednisolone 1% Oph Susp [Pred 1 ml BOTH EYES Q6H bottle 09/06/18 09/10/18 09/10/18 02:36 Rx Forte 1% Oph Suspension] Doxycycline 100 mg PO BID tab 09/14/18 Unknown Rx - History of Present Illness-Resp Nature of Presenting Problem: 62 yowf presents to the ed with c/o sob fo 3 days. pt on exam appears to be mildly sob but can speak in 4-5 word sentences. pt is nontoxic in appearance Quality of Pain: reports: none Severity in ED: reports: mild Onset/Duration: reports: 3 days ago Timing: reports: still present Exposure: reports: unknown cause Cough Quality/Degree: reports: moderate, dry cough Episode Frequency: occasional episodes Current Respiratory Medication Therapy: Initiated see nurses note Modifying Factors: improves with: rest, sitting upright. worse with: exertion, coughing, lying down Associated Symptoms: reports: cough, shortness of breath, wheezing. denies: fever/chills, lightheadedness Similar Symptoms Previously?: Yes Recently seen or treated by another doctor?: No Review of Systems - Adult - REVIEW OF SYSTEMS - ADULT Constitutional: reports: harsha. denies: chills, fever Eyes: reports: no symptoms reported Ears, Nose, Mouth & Throat: reports: no symptoms reported Cardiovascular: denies: chest pain, palpitations, syncope Respiratory: reports: see HPI, cough, dyspnea on exertion, shortness of breath, wheezing Gastrointestinal: denies: abdominal pain, diarrhea, nausea, vomiting Genitourinary: reports: no symptoms reported Musculoskeletal: reports: no symptoms reported Integumentary: reports: no symptoms reported Neurological: denies: dizziness/vertigo, headache/migraines Psychiatric: reports: no symptoms reported Endocrine: reports: no symptoms reported Hematologic/Lymphatic: reports: no symptoms reported Allergic/Immunologic: reports: no symptoms reported All Other Systems: Reviewed and Negative Past History - Adult - PAST MEDICAL HISTORY-ADULT Review of Records: reports: Nursing Assessment Review, Medications Reviewed Major Childhood Illnesses: reports: denies history Cardiovascular: reports: CHF, HTN, hyperlipidemia, murmur, [place] Respiratory: reports: denies history Gastrointestinal: reports: GERD Obstetrical/Gynecological: reports: denies history Genitourinary: reports: denies history Musculoskeletal: reports: denies history Neurological: reports: denies history Psychiatric: reports: depression Endocrine/Immune: reports: Diabetes Other Conditions: reports: other cancer - PRIOR SURGERIES/PROCEDURES Surgical/Procedure History: reports: appendectomy, cholecystectomy, other (oophrectomy) - IMMUNIZATION STATUS Childhood Immunizations: See Nurse Assessment Flu Vaccine: See Nurse Assessment - FAMILY HISTORY Family History: CAD under 55yo (mother had heart attack at 51) - SOCIAL HISTORY Smoking: denies Substance Use: denies Living Situation: family Physical Exam-General - PHYSICAL EXAM-ADULT Initial Vital Signs Reviewed: Yes - CONSTITUTIONAL General Appearance: alert, mild distress, obese - EYES Eyes: PERRL/EOMI, sclera injected (left eye) - HEAD, EARS, NOSE, MOUTH & THROAT HENMT: normocephalic/atraumatic, TMs normal. negative: moist mucous membranes (mild dry oral) - NECK Neck: full range of motion, supple, normal inspection - RESPIRATORY Respiratory: chest non-tender, no pleuratic chest pain, no respiratory distress, no accessory muscle use, rales (bilateral in bases) - CARDIOVASCULAR Cardiovascular: normal peripheral pulses, regular rate, rhythm, systolic murmur (2/6) - GASTROINTESTINAL (ABDOMEN) Abdominal Exam: normal bowel sounds, non tender - LYMPHATIC Lymphatic: no adenopathy - MUSCULOSKELETAL Back Exam: normal inspection, no CVA tenderness, no vertebral tenderness Extremity: normal range of motion, non-tender, normal gait, normal inspection, no pedal edema, no calf tenderness, pelvis stable - SKIN Integumentary: normal color, normal turgor, warm/dry - NEUROLOGIC Neurologic: grossly normal, no motor/sensory deficits - PSYCHIATRIC Psych/Mental Status: normal mood/affect, normal thought content, normal thought process, oriented x 3 Progress - PLAN OF CARE/RESULTS Progress/Plan/Lab Results: Vital Signs - 8 hr 10/13/18 10:55 10/13/18 11:00 10/13/18 11:01 Temperature Pulse Rate 78 79 79 Respiratory Rate 22 24 24 Blood Pressure 156/85 131/74 O2 Sat by Pulse Oximetry 93 L 95 10/13/18 11:03 10/13/18 11:10 10/13/18 11:20 Temperature 97.4 F L Pulse Rate 78 79 79 Respiratory Rate 24 22 22 Blood Pressure 156/85 O2 Sat by Pulse Oximetry 94 L 96 98 10/13/18 11:30 10/13/18 11:40 10/13/18 11:50 Temperature Pulse Rate 79 79 79 Respiratory Rate 19 18 18 Blood Pressure O2 Sat by Pulse Oximetry 98 99 99 10/13/18 12:00 Temperature Pulse Rate 82 Respiratory Rate 23 Blood Pressure O2 Sat by Pulse Oximetry 98 Laboratory Results - last 24 hr 10/13/18 10/13/18 10/13/18 11:07 11:07 11:07 WBC 12.90 H RBC 3.48 L Hgb 9.8 L Hct 30.3 L MCV 87.1 MCH 28.2 MCHC 32.3 L RDW Std Deviation 16.3 H Plt Count 352 MPV 9.6 Immature Gran % (Auto) 0.3 Neut % (Auto) 75.5 H Lymph % (Auto) 15.4 L [place] % (Auto) 6.4 Eos % (Auto) 2.0 Baso % (Auto) 0.4 Immature Gran # (Auto) 0.04 Neut # (Auto) 9.73 H Lymph # (Auto) 1.99 [place] # (Auto) 0.83 H Eos # (Auto) 0.26 Baso # (Auto) 0.05 PT INR PTT (Actin FS) Sodium 141 Potassium 4.3 Chloride 108 H Carbon Dioxide 20 L Anion Gap 13 BUN 19 Creatinine 0.8 Estimated GFR/1.73 m2 > 60 BUN/Creatinine Ratio 24 Glucose 87 Calculated Osmolality 283 Calcium 9.3 Total Bilirubin 0.97 AST 12 ALT 9 L Alkaline Phosphatase 77 Creatine Kinase 42 Troponin T [id number]-[id number] Pept 1749 H Total Protein 8.1 Albumin 3.5 Globulin 4.6 Albumin/Globulin Ratio 0.8 Lipase 10/13/18 10/13/18 10/13/18 11:07 11:07 11:25 WBC RBC Hgb Hct MCV MCH MCHC RDW Std Deviation Plt Count MPV Immature Gran % (Auto) Neut % (Auto) Lymph % (Auto) [place] % (Auto) Eos % (Auto) Baso % (Auto) Immature Gran # (Auto) Neut # (Auto) Lymph # (Auto) [place] # (Auto) Eos # (Auto) Baso # (Auto) PT 14.6 INR 1.05 PTT (Actin FS) 31.9 Sodium Potassium Chloride Carbon Dioxide Anion Gap BUN Creatinine Estimated GFR/1.73 m2 BUN/Creatinine Ratio Glucose Calculated Osmolality Calcium Total Bilirubin AST ALT Alkaline Phosphatase Creatine Kinase Troponin T 0.044 Uhh-[id number]-Mhvvbmxqmjy Pept Total Protein Albumin Globulin Albumin/Globulin Ratio Lipase 22 Orders Category Date Time Status Cardiac Monitoring DIRECTED Care 10/13/18 10:55 Active Oxygen Therapy- ED Nursing DIRECTED Care 10/13/18 10:55 Active Saline Loc NOW Care 10/13/18 10:55 Active Vital Signs Order Q 4-HR ASSESS Care 10/13/18 12:13 Active CHEST-PORTABLE [RAD] Stat Exams 10/13/18 11:01 Completed BLOOD CULTURE [BLDCUL] Stat Lab 10/13/18 12:43 Results CBC WITH ELECTRONIC DIFF [HEME] Stat Lab 10/13/18 11:07 Completed CK PROFILE [SP CHEM] Stat Lab 10/13/18 11:07 Completed CK PROFILE [SP CHEM] Stat Lab 10/13/18 13:54 Received COMPREHENSIVE METABOLIC PANEL [CHEM] Stat Lab 10/13/18 11:07 Completed LIPASE [CHEM] Stat Lab 10/13/18 11:25 Completed PRO B-NATRIURETIC PEPTIDE Stat Lab 10/13/18 11:07 Completed PROTIME WITH INR [COAG] Stat Lab 10/13/18 11:07 Completed PTT [COAG] Stat Lab 10/13/18 11:07 Completed TROPONIN T Stat Lab 10/13/18 11:07 Completed TROPONIN T Stat Lab 10/13/18 13:54 Received 0.9% Sodium Chloride Inj [Ns] 1,000 ml Med 10/13/18 12:14 Active IV 125 mls/hr CefTRIAXONE [Rocephin] 1 gm Med 10/13/18 12:14 Discontinued 0.9% Sodium Chloride Inj [Ns] 50 ml IV NOW CP/SOB/Palp >45 yrs of Age Stat Oth 10/13/18 10:55 Ordered EKG [EKG] Stat Ther 10/13/18 10:55 Draft Result Diagrams: 10/13/18 11:07 04/10/19 11:07 - REASSESSMENT Reassessment #1 Time Reassessed: 12:01 (pt is resting in bed) Status: unchanged Reassessment #2 Time Reassessed: 13:46 Status: improving - EKG 1 Time of EKG reading by physician:: 11:05 EKG Read and Signed by:: Luis Nicholson EKG Interpretation (*Must complete 3 of following elements*): Normal Rate: 78 Rhythm: nsr [place]: normal QRS: normal AR Interval: normal ST Wave: normal - XRAY 1 XRAY: Bilateral XRAY Study: Chest Impression: See EMR Report (EXAM: CHEST-PORTABLE HISTORY: SOB TECHNIQUE: Chest single view COMPARISON: 09/12/2018 FINDINGS: Poor inspiratory effort. There is vascular distention. There may be underlying infiltrates as well. Trace left pleural fluid. There is a granuloma in the right base. IMPRESSION: Pulmonary edema with possible underlying pneumonia. Electronically signed by Arnoldo Napier 10/13/2018 11:12 AM 10/13/18 1112 Interpreting Physician: Arnoldo Napier MD Dictated Date/Time: 10/13/18 1111 cc: Luis Nicholson MD; Patel Skinner) - CONSULTS/PCP/HOSPITALIST Notification #1 *Consult/PCP/Hospitalist*: hospitalist dr wetzel Time Discussed: 13:46 Reason/Comments: possible pneumonia Consult Disposition: Admit Departure - Departure Date of Disposition Decision: 10/13/18 Time of Disposition Decision: 14:10 DIAGNOSIS: SOB (shortness of breath), Pneumonia, Chest pain, Leukocytosis Disposition: ADMITTED INPATIENT 09 Certified Medical Emergency: Emergent Condition: Stable Referrals and Follow-Ups: Patel Skinner [Primary Care Provider] - - Critical Care Note This patient required my direct & personal management of CC.: Yes Total Time (mins): 34 Critical Care Statement: This patient required my direct personal management to treat or rule out processes, the absence of which, could potentiallly result in sudden, clinically significant life or limb threatening deterioration. Attestation - Physician/ MANUELA Attestation Patient care was provided by Advanced Practice Provider:: No The physician spent face to face time with patient:: Yes Advanced Practice Provider documentation review:: Supervising physician onsite and consulted in the evaluation and care of this patient. The physician did have a face to face encounter with the patient. This chart was documented by the indicated scribe, (Elisa Hays Scribe) and accurately reflects the services I performed and decisions made by me, Luis Nicholson MD, as attested by the provider's signature.
--- NOTE | 2018-10-13 14:43 | EKG Report ---
Test Performed on : 10/13/2018 2:24:34 PM Test Reason : sob Blood Pressure : / mmHG Vent. Rate : 090 BPM Atrial Rate : 090 BPM P-R Int : 158 ms QRS Dur : 070 ms QT Int : 352 ms P-R-T Axes : 033 005 080 degrees QTc Int : 430 ms Normal sinus rhythm. Possible Left atrial enlargement Borderline ECG When compared with ECG of 13-OCT-2018 10:55, (Unconfirmed) No significant change was found Unconfirmed Result
[2018-10-13] MEDS ORDERED: ZOFRAN IV PRN (14:49)
[2018-10-13] MEDS ORDERED: LOVENOX 1 MG/KG SUBQ ONE (14:51)
[2018-10-13 15:18] LABS: ALLEN TEST YES; BE -5.7 mmoll (-3.0-3.0); BLOOD TYPE ARTERIAL; HCO3-(ACT) 20.5 mmoll (20.0-26.0); METHB 1.3 % (0.0-1.5); O2(CT) 13.4 mL/dL (15.0-23.0); O2HB 95.5 % (95.0-99.0); PCO2(98.6) 35 mmHg (35-45); PO2(98.6) 110 mmHg (60-100); SAMPLE BLOOD; SAO2 99.2 % (95.0-100.0); THB 9.8 g/dL (11.5-17.4); pH(98.6) 7.35 (7.35-7.45)
[2018-10-13 15:19] LABS: MODALITY BI PAP
[2018-10-13] MEDS ORDERED: LOVENOX SUBQ ONE (15:30)
[2018-10-13] MEDS: DUONEB (A & A) INH SCH ×4 (15:47→23:16)
--- NOTE | 2018-10-13 16:01 | Diag Imaging Result Doc PS360 ---
EXAM: CT ANGIOGRM PULMONARY ARTERIES INDICATION: SOB TECHNIQUE: This exam was performed using automated exposure control, adjustment of mA or kV according to patient size, and/or use of iterative reconstruction technique. Thin section axial images and 3-D MIPS were obtained. COMPARISON: 09/09/2018 FINDINGS: There is no evidence of pulmonary embolism. There is no evidence of aortic dissection or aneurysm. There is no cardiomegaly. There are a few calcified mediastinal lymph nodes indicating prior granulomatous disease. There are a few other shotty mildly prominent mediastinal lymph nodes that are nonspecific and stable. There are bilateral sciho-ve-ynyhgsvv sized pleural effusions. There is bibasilar subsegmental atelectasis. There are mixed interstitial and airspace infiltrates seen throughout both lungs suggesting pulmonary edema. Infiltrates are more dense in the upper lobes, especially on the left indicating likely superimposed pneumonia. Limited views of the upper abdomen are essentially unremarkable. IMPRESSION: 1.Bilateral mixed interstitial and airspace infiltrates likely representing pulmonary edema with superimposed pneumonia at the upper lobes. 2.Bilateral small to moderate-sized pleural effusions and bibasilar atelectasis. 3.Nonspecific mild mediastinal lymphadenopathy, probably reactive. 4.No evidence of pulmonary embolism. Electronically signed by Omari Paz 10/13/2018 3:59 PM
--- NOTE | 2018-10-13 16:41 | HISTORY AND PHYSICAL ---
HISTORY OF PRESENT ILLNESS: She is followed by Dr. Marco Antonio Erwin. The report is, family said that she is not on oxygen at home but she was a little short of breath yesterday, this morning got a little more short of breath, and it just progressed through the day. They felt like she had a little more swelling in her feet. She said she had a little chest discomfort, but could not really describe it well yesterday. Has had none today. No complaints of palpitations. No pleuritic pain. Not really much in increased cough, but they noticed some increased wheezing. She said last night she had to sleep sitting up in order to breathe. She is a 62-year-old with a past medical history of coronary artery disease, diabetes mellitus type 2, hypertension, hyperlipidemia. She was last in the hospital on 09/09/2018. Before that she was in for streptococcal bacteremia MRSA infection on her right and diabetic foot ulcer, uncontrolled diabetes mellitus type 2, acute kidney injury. Also history of CVA. I think she had been to [facility] for rehab for a while or I think they were considering [facility] but because of the IV antibiotic she needed, she was refusing and went home and got IV antibiotics at home. At this last admission, she was not eligible for O2. PAST MEDICAL HISTORY: 1. Coronary artery disease. 2. Hypertension. 3. Diabetes mellitus type 2. 4. There has been suggestion of medical noncompliance in the past. 5. Hyperlipidemia. 6. Chronic diabetic foot ulcer, history of Morganella with MRSA. 7. Had streptococcal bacteremia on presentation during her hospitalization with MR SA infection and the right diabetic foot ulcer and she was sent home on daptomycin. 8. History of CVA. Imaging showed multiple areas of restriction. 9. Bilateral conjunctivitis. PAST SURGICAL HISTORY: 1. Cholecystectomy. 2. Appendectomy. 3. Right oophorectomy. 4. Heart catheterization. SOCIAL HISTORY: Patient lives with daughter. The patient denies any tobacco or drinking alcohol or illicit drugs. ALLERGIES: No known drug allergies. FAMILY HISTORY: They give no history of cardiac or pulmonary or renal pathology. REVIEW OF SYSTEMS: She apparently was doing fairly well, in good state of health until yesterday evening. Denies any known weight gain or loss. No fever chills.HEENT: No change in visual or hearing acuity. Neck: No neck pain. No adenopathy that she has appreciated. Respiratory: As noted above, increased work of breathing yesterday evening and progressed through the day, orthopnea. She had to sleep sitting up yesterday. Cardiovascular: No chest pain or tachy palpitation. GI/: No gross hematuria, hematochezia. No change in her bowels. Sometimes she has trouble getting to the bathroom by her daughter's report, just a hard time getting there, but no real incontinence. Neurologic: No focal complaints or changes. Endocrinologic/Hemologic: No significant history. PHYSICAL EXAMINATION: VITAL SIGNS: Temperature 97.4 degrees, pulse 90, respirations 30, blood pressure 149/80. HEENT: Pupils are equal. She is on BiPAP at the present time. Apparently, she got very short of breath and oxygen saturations went down. Doing much better and feels much more comfortable on BiPAP. Conjunctivae pink. Sclerae clear. NECK: CVP less than 6 cm but difficult to determine. She is on BiPAP and her neck is large. Neck is supple. No cervical or supraclavicular adenopathy. CARDIOVASCULAR: Regular rhythm and rate. PMI nondisplaced. Carotid, radial, and femoral pulses 2+ and symmetrical. LUNGS: Clear anterolateral. ABDOMEN: Soft, nontender, nondistended. SKIN: Warm and dry. She has trace to 1+ pitting edema from ankle to mid sanchez. SKIN: Warm and dry. I do not see any rashes or mucosal lesions in the oral and nasopharynx. LAB: White count 12,900, hematocrit is 30, hemoglobin 9.8, platelet count 352,000. Sodium 141, potassium 4.3, chloride 108, BUN 19, creatinine 0.8, blood sugar is 87, AST is 12, ALT is 9. CK is 42. Troponin is 0.036. ProBNP 1,749. Lipase is 22. ProTime is 14.6, PTT is 31. Blood gas on arrival, pH was 7.35, pCO2 is 35, PO2 is 110, O2 saturation is 95%; actually this was after she was on BiPAP. She is on 60% FiO2 and pressures were 14/6. Chest x-ray: Pulmonary edema, possible underlying pneumonia. So, trace left pleural fluid, granuloma in the right base. Pulmonary arteriogram was read as no pulmonary emboli, but a little bit of pulmonary venous hypertension. ASSESSMENT AND PLAN: 1. Pulmonary venous hypertension with it sounds like some bronchospasm, hypoxemic respiratory failure. Doing better with BiPAP. We will use the BiPAP as needed, supplementary oxygen. We will give her some bronchodilators, both DuoNeb and a steroid inhaler. Note she is already on Ranexa ER 1000 mg twice a day. She is on losartan hydrochlorothiazide 100/12.5 daily and she takes hydralazine 50 mg t.i.d. I think she takes clonidine just 0.1 mg once a day, Coreg 25 mg b.i.d., amlodipine 10 mg at bedtime. So, I am going to continue those medications. We will try and diurese her a little bit and give her 40 of Lasix and I may try and give her 40 of Lasix now and do that q.12 hours for a couple doses. We will check another chest x-ray in the morning. We will also check her electrolytes and magnesium. We will check a T4 and TSH. We will follow her troponin and CK values in the morning as well. I think we will get an a.m. cortisol level and make sure we follow the magnesium as well. 2. CT scan by report did not show any definitive infiltrate. I may treat her for bronchitic organisms until we know for sure there is no pneumonia developing. So, we will give her Rocephin 1 g IV now and then q.24 hours. 3. Diabetes mellitus type 2. Follow her sugars. Put her on sliding scale. 4. Check another lipid profile, but she does have history of hyperlipidemia. Continue present medication. 5. History of diabetic foot ulcer in the past. She has a small 1 on her right foot, right on the medial side of the first metatarsal. 6. History of cerebrovascular accident in the past. wanted know if she is eligible for oxygen, so we will certainly see how we do after we are in stable state. cc: Grayson Leo MD
[2018-10-13] MEDS: HUMULIN R SUBQ SCH ×2 (17:11→21:05)
[2018-10-13] MEDS: LASIX IV SCH (17:12)
[2018-10-13] MEDS ORDERED: NORCO-5 PO PRN (18:33)
[2018-10-13] MEDS ORDERED: NITROGLYCERIN SL PRN (18:33)
[2018-10-13] MEDS ORDERED: LASIX IV ONE (19:48)
[2018-10-13] MEDS ORDERED: INSULIN PEN NEEDLES ONE (20:16)
[2018-10-13] MEDS: PRED FORTE 1% OPH SUSPENSION RIGHT EYE SCH (20:28)
[2018-10-13] MEDS: BASAGLAR SUBQ SCH ×2 (20:29→21:00)
[2018-10-13] MEDS: COREG PO SCH (20:29)
[2018-10-13] MEDS: NEURONTIN PO SCH (20:29)
[2018-10-13] MEDS: LYRICA PO SCH (20:29)
[2018-10-13] MEDS: NORVASC PO SCH (20:29)
--- NOTE | 2018-10-13 21:22 | PULMONOLOGY CONSULTATION ---
DATE: 10/13/2018 REASON FOR CONSULTATION: Respiratory failure. HISTORY OF PRESENT ILLNESS: Ms. Dash is a 62-year-old white female with diabetes mellitus, coronary artery disease, medical noncompliance, and chronic diabetic foot ulcers who was last discharged from this hospital on 09/06/2018 with altered mental status and an MRI showing multiple abnormalities, methicillin-resistant Staphylococcus aureus infection of a right diabetic foot ulcer, streptococcal bacteremia. During that admission, the patient underwent an echocardiogram that demonstrated moderate to severe eccentric mitral regurgitation. The patient presented to the emergency room with increasing shortness of breath with evidence of increasing work of breathing. The patient is a difficult historian but may have an increased lower extremity edema and shortness of breath over several days. A CT scan of the thorax with angiography was performed which revealed pulmonary edema with possible pneumonia in the upper lobes along with moderate sized bilateral pleural effusions. Pleural effusions were not present on her CT scan 09/09/2018. The patient has been initiated on BiPAP and is currently undergoing diuresis. She reports her shortness of breath has diminished. PAST MEDICAL HISTORY: 1. Diabetes mellitus with poor compliance. 2. Mitral regurgitation identified on last transesophageal echocardiogram. 3. Diabetes mellitus with noncompliance. 4. Chronic diabetic foot ulcers. 5. History of stroke. 6. Status post cholecystectomy. 7. Status post appendectomy. 8. Status post right oophorectomy. 9. Severe coronary artery disease. Cardiac catheterization on 05/20/2018 revealed proximal LAD diffuse disease up to 80%, mid disease of the LAD at 80%, diffuse disease of the LAD toward the apex. First diagonal had a 50% narrowing followed by another 50% stenosis. The left circumflex was nondominant, had a mid 90%. Right coronary artery was 50% with the posterior descending 99% and a posterior lateral branch 90%. The patient was deemed a nonsurgical candidate. SOCIAL HISTORY: No tobacco or alcohol listed. She lives with her daughter. REVIEW OF SYSTEMS: Limited but notable for shortness of breath, increased lower extremity edema. PHYSICAL EXAMINATION: General: Reveals a chronically ill-appearing white female who appears older than her stated age of 62. Blood pressure 164/89, heart rate 97, respiratory rate 26 oxygen saturation 100%. HEENT: Pupils are equal and reactive. Oropharynx is clear. Neck: Supple. Chest: Reveals crackles bilaterally. Cardiac Exam: S1, S2. Abdomen: Obese and soft. Extremities: Reveal ulcers on the feet with dressings in place and not evaluated. LABORATORIES: CT scan of the thorax reveals predominantly pulmonary edema with small to moderate bilateral pleural effusion. Arterial blood gas reveals a pH of 7.35, pCO2 of 39, PO2 of 110. Urinalysis reveals [id number]-count white blood cells, but the nitrites are negative. IMPRESSION: A 62-year-old with severe coronary artery disease, obesity, diabetes mellitus, mitral valve disease, who presents with pleural effusions, pulmonary edema, acute hypoxemic respiratory failure. The patient has mild leukocytosis and may have an early pneumonia or a urinary tract infection but does not have sepsis. RECOMMENDATIONS: 1. Discontinue IV fluids. 2. Initiate diuretics. 3. Continue BiPAP and wean as tolerated. 4. Continue antibiotics pending outcome of blood culture and urinalysis. 5. Prognosis is guarded given her severe coronary artery disease and mitral valve disease. TIME SPENT IN CRITICAL CARE: 1 hour. cc: Johann Bullock MD
[2018-10-14] MEDS: DUONEB (A & A) INH SCH ×6 (03:39→23:34)
[2018-10-14] MEDS: PRED FORTE 1% OPH SUSPENSION RIGHT EYE SCH ×4 (04:00→20:47)
[2018-10-14] MEDS: LASIX IV SCH ×2 (04:09→16:42)
[2018-10-14 05:10] LABS: BASO# 0.04 X1000 (0.0-0.2); BASO% 0.4 % (0.0-0.8); EOS# 0.22 X1000 (0.0-0.7); HEMATOCRIT 28.3 % (37.0-47.0); HEMOGLOBIN 9.1 g/dL (12.0-16.0); IMM GRAN# 0.02 X1000 (0.0-0.04); IMM GRAN% 0.2 % (0.0-0.5); LYMPH# 2.18 X1000 (1.2-3.4); LYMPH% 20.2 % (20.5-51.1); MCH 28.1 PG (27-31); MCHC 32.2 g/dL (33-37); MCV 87.3 FL (81-99); MONO% 7.4 % (1.7-9.3); MPV 9.7 FL (7.4-10.4); NEUT# 7.51 X1000 (1.4-6.5); NEUT% 69.8 % (42.2-75.2); PLT 316 X1000 (130-400); RBC 3.24 XMIL (4.2-5.4); RDW 16.2 % (11.5-14.5); WBC 10.77 X1000 (4.8-10.8)
[2018-10-14 05:34] LABS: INR 1.28
[2018-10-14 05:35] LABS: PTT 38.2 Seconds (22.3-41.8)
[2018-10-14 05:36] LABS: ALLEN TEST YES; BE -0.8 mmoll (-3.0-3.0); BLOOD TYPE ARTERIAL; HCO3-(ACT) 24.3 mmoll (20.0-26.0); METHB 1.2 % (0.0-1.5); O2(CT) 11.4 mL/dL (15.0-23.0); O2HB 95.5 % (95.0-99.0); PCO2(98.6) 34 mmHg (35-45); PO2(98.6) 92 mmHg (60-100); SAMPLE BLOOD; SAO2 98.9 % (95.0-100.0); THB 8.4 g/dL (11.5-17.4); pH(98.6) 7.44 (7.35-7.45)
[2018-10-14 05:39] LABS: MODALITY BI PAP
[2018-10-14 05:48] LABS: AGAP 15; ALB/GLOB RATIO 0.7; ALBUMIN 3.1 g/dL (3.5-5.0); ALKALINE PHOSPHATASE 78 U/L (32-104); BUN 18 mg/dL (8-22); CHLORIDE 105 mmol/L (98-107); COSMO 282; CREATININE 0.8 mg/dL (0.5-0.9); ESTIMATED GFR > 60; GLUCOSE 105 mg/dL (70-104); GOT 13 U/L (10-30); GPT 8 U/L (10-36); MAGNESIUM 1.7 mg/dL (1.5-2.7); POTASSIUM 3.5 mmol/L (3.5-5.1); SODIUM 140 mmol/L (136-145); TCO2 20 mmol/L (25-35); TOTAL BILIRUBIN 0.92 mg/dL (0.20-1.00); TOTAL PROTEIN 7.8 g/dL (6.3-8.3)
[2018-10-14 06:03] LABS: FREE T4 1.28 ng/dL (0.93-1.70); TSH 1.8 uIUmL (0.27-4.20)
[2018-10-14] MEDS: SYNTHROID PO SCH (06:08)
[2018-10-14] MEDS: HUMULIN R SUBQ SCH ×4 (06:11→20:45)
[2018-10-14] MEDS: LIPITOR PO SCH (09:08)
[2018-10-14] MEDS: ROCEPHIN 1 GM in NS 50 ML IV SCH (09:08)
[2018-10-14] MEDS: LYRICA PO SCH ×2 (09:08→20:46)
[2018-10-14] MEDS: COREG PO SCH ×2 (09:08→20:45)
[2018-10-14] MEDS: SANTYL OINT TOP SCH (09:09)
[2018-10-14] MEDS: ASPIRIN EC PO SCH (09:09)
[2018-10-14] MEDS: HYZAAR 100/12.5 MG TAB PO SCH (09:09)
[2018-10-14] MEDS: IMDUR PO SCH (09:09)
[2018-10-14] MEDS: ATROPINE 1 % OPHTH SOLN RIGHT EYE SCH ×3 (09:09→20:47)
--- NOTE | 2018-10-14 09:18 | PROGRESS NOTE ---
DATE: 10/14/2018 SUBJECTIVE: Ms. Dash is breathing much better. She is sitting up. She is eating breakfast. She is on a face mask and feels like she can move to the floor. OBJECTIVE: Temperature 97.3 degrees, pulse 90, respirations 15, blood pressure 137/67. Pupils are equal and round. Lungs are clear in all lung worley. Cardiovascular Examination: Regular rhythm and rate without murmur or S3. Abdomen is soft. Skin is warm and dry. Urine output is 8000 mL. Blood sugar 114, 112. ASSESSMENT AND PLAN: 1. This is a 62-year-old with severe coronary artery disease, obesity, diabetes mellitus, mitral valve disease. Presented with some pleural effusions, pulmonary edema, acute hypoxemic respiratory failure. She had some mild leukocytosis. Suspect early pneumonia or urinary tract infection so we turned off the intravenous fluids. We are diuresing her with some diuretics. Use the BiPAP as needed. Her air exchange is much better. I think she can move to the floor or move to CIC. 2. Antibiotics, continue covering for possible pneumonia and urinary tract infection. 3. History of coronary artery disease and mitral valve disease. She had a pulmonary arteriogram yesterday. Bilateral mixed interstitial and airspace infiltrates, likely pulmonary edema with superimposed pneumonia in the upper lobes. Bilateral small moderate size pleural effusions, bibasilar atelectasis. Nonspecific mild mediastinal lymphadenopathy, probably reactive, and no pulmonary embolism. REVIEW OF LABS: From this morning, white count 10,770, hematocrit 28, platelet count 318,000. Chemistries: Sodium 140, potassium 3.5, chloride 105, BUN 18, creatinine 0.8, magnesium 1.7. AST 13, ALT 8. TSH is 1.8, T4 is 1.28. Continue to follow blood sugars and see if we can move her to CIC. She also has a history of hypothyroidism. We have her on Synthroid 50 mcg daily. We also have her on Lyrica 150 mg b.i.d., Lipitor 40 mg a day, and her Neurontin 300 mg at bedtime. cc: Grayson Leo MD
--- NOTE | 2018-10-14 10:13 | Diag Imaging Result Doc PS360 ---
EXAM: CHEST-2 VIEWS 10/14/2018 HISTORY: pna TECHNIQUE: PA and lateral chest COMMENT: Compared to the previous study of 10/13/2018 there is improvement in the alveolar opacities generally. There is still some apparent platelike opacity in the lung bases. IMPRESSION: Improved pneumonia and/or pulmonary edema. Residual atelectasis. Electronically signed by Arnel Taylor 10/14/2018 10:10 AM
[2018-10-14] MEDS: TYLENOL PO PRN (20:45)
[2018-10-14] MEDS: NEURONTIN PO SCH (20:45)
[2018-10-14] MEDS: NORVASC PO SCH (20:45)
[2018-10-14] MEDS ORDERED: BASAGLAR SUBQ SCH (21:00)
--- NOTE | 2018-10-14 21:01 | PULMONOLOGY PROGRESS NOTE ---
DATE: 10/14/2018 SUBJECTIVE: The patient is awake, alert, and conversant. She reports she feels significantly better. She denies sputum production. OBJECTIVE: Vital Signs: The patient has been afebrile for the last 24 hours. Intake 500 mL, output 4000 mL. Blood pressure 117/48, heart rate 90, respiratory rate 19, oxygen saturation 100% on 4 L per nasal cannula. HEENT: Pupils are equal and reactive. Oropharynx appears clear. Neck: Supple. Chest: Crackles in both lung bases. Cardiac: S1, S2. Abdomen: Soft and without hepatosplenomegaly. Extremities: Trace edema. LABORATORIES: Sodium 140, potassium 3.5, chloride 105, bicarbonate 20, BUN 18, creatinine 0.8, glucose 105. Chest x-ray reveals decreased pulmonary edema. IMPRESSION: A 62-year-old with: 1. Acute hypoxemic respiratory failure. 2. Pleural effusions with pulmonary edema. 3. Diabetes mellitus. 4. Mitral valve disease. 5. Severe coronary artery disease. 6. Obesity. RECOMMENDATIONS: 1. Continue diuretics. Anticipate she will need an oral diuretic at the time of discharge. 2. Continue to cycle BiPAP and oxygen as needed. 3. Antibiotics per the primary care team. 4. Overall prognosis is guarded. 5. Agree with transfer to the floor. cc: Johann Bullock MD
[2018-10-15] MEDS: DUONEB (A & A) INH SCH ×4 (03:36→15:23)
[2018-10-15] MEDS: LASIX IV SCH (03:46)
[2018-10-15] MEDS: PRED FORTE 1% OPH SUSPENSION RIGHT EYE SCH ×2 (03:47→08:29)
[2018-10-15] MEDS: HUMULIN R SUBQ SCH ×2 (06:09→12:52)
[2018-10-15] MEDS: SYNTHROID PO SCH (06:09)
[2018-10-15] MEDS: HYZAAR 100/12.5 MG TAB PO SCH (08:28)
[2018-10-15] MEDS: LYRICA PO SCH (08:28)
[2018-10-15] MEDS: IMDUR PO SCH (08:28)
[2018-10-15] MEDS: ATROPINE 1 % OPHTH SOLN RIGHT EYE SCH (08:29)
[2018-10-15] MEDS: COREG PO SCH (08:29)
[2018-10-15] MEDS: LIPITOR PO SCH (08:29)
[2018-10-15] MEDS: ASPIRIN EC PO SCH (08:29)
[2018-10-15] MEDS: ROCEPHIN 1 GM in NS 50 ML IV SCH (08:30)
[2018-10-15] MEDS: SANTYL OINT TOP SCH (08:30)
--- NOTE | 2018-10-15 12:51 | DISCHARGE SUMMARY ---
ADMISSION DATE: 10/13/2018 DISCHARGE DATE: 10/14/2018 HISTORY OF PRESENT ILLNESS: Family physician is Dr. Patel Skinner and followed by Dr. Marco Antonio Erwin. Family said that she is not on oxygen at home, but has a little bit of shortness of breath yesterday, the day before admission, and then morning of admission got a little more short of breath that progressed through the day. [place] like she had more swelling in her feet. Said she had a little chest discomfort, but could not really describe it. Complaining of some palpitation. No pleuritic pain. Not really much of an increasing cough. They noticed some increased wheezing. Stated the night before admission, she slept sitting up. PAST MEDICAL HISTORY: Diabetes mellitus type 2, hypertension, hyperlipidemia. She was last in the hospital on 09/09/2018. She was in for streptococcal bacteremia, MRSA infection on her right foot, diabetic foot ulcer, uncontrolled diabetes, acute kidney injury. She has a history of CVA and went to [facility] for rehabilitation. So once again, review of past medical history: 1. Coronary artery disease. 2. Hypertension. 3. Diabetes mellitus type 2. 4. There has been suggestion of some trouble with medical compliance in past records. 5. Hyperlipidemia. 6. Chronic diabetic foot ulcer, history of Morganella and MRSA, and I think that has been treated. 7. Streptococcal bacteremia presentation in the hospital with MRSA infection for right diabetic foot ulcer, and this is better. 8. CVA. 9. Bilateral conjunctivitis. PAST SURGICAL HISTORY: 1. Cholecystectomy. 2. Appendectomy. 3. Right oophorectomy. 4. Heart catheterization. HOSPITAL COURSE: So, admitted to the hospital with pulmonary venous hypertension which was mild, some bronchospasm, hypoxemic respiratory failure, and she was put on some BiPAP as needed. She was diuresed and continued on her medications, including Ranexa and losartan/hydrochlorothiazide and hydralazine and amlodipine. The following day she is breathing much better, wanted to go home. We are trying to arrange for her to get her oxygen. We found no source of infection. CT scan of her chest with no infiltrate. We did give her 2 doses I think of Rocephin. Diabetes mellitus type 2. Her sugars appear to be fairly well controlled. History of diabetic foot ulcer. These appear healed. So, we will see if we can get her set up to go home. Would probably benefit from home health. DISCHARGE MEDICATIONS: She will be on Norvasc 10 mg at bedtime, aspirin 325 mg a day, Lipitor 40 mg a day, atropine sulfate ophthalmic solution continue to use, Coreg 25 mg b.i.d. She is using the Santyl ointment which she continued to do at home, Neurontin 300 mg at bedtime, Hyzaar 100/12.5 one a day. She is getting [place] 5 p.r.n. pain. I will let her primary care physician see if he wants to continue those. Insulin glargine 20 units at bedtime subcutaneous, Imdur 120 mg daily, Synthroid 50 mcg daily. She has nitroglycerin tablets in case she has angina-type chest pain. She is on prednisone Forte 1% ophthalmic solution in the right eye; I think she does it 4 times a day and Lyrica 150 mg b.i.d. I will put her on Lasix 40 mg q.a.m. DISCHARGE DISPOSITION: She is to follow up in a couple weeks with her primary care physician. She will go back to her normal insulin, which was insulin glargine 30 units in the morning, 20 units at night, SoloSTAR 40 units at bedtime, and I think she uses an insulin Humalog Pen t.i.d. per sliding scale protocol. She will continue her Icar-C 1 twice a day and we got her home oxygen. She was also on pantoprazole 40 mg a day and MiraLAX 17 g daily and her Ranexa 100 mg b.i.d. cc: Grayson Leo MD
[2018-10-15] MEDS: TYLENOL PO PRN (13:37)
[2018-10-15 16:00] VITALS: BP 96/47
== END 2018-10-15 16:30 | disposition home health service (06) | DRG 189 ==
LOC: SUPCPDRO → ED 10:42 → ICU 15:38 → 3S 10-14 11:49
PROVIDERS: ATTEND Emergency Medicine
CPT/HCPCS: 71010; 71020; 71045; 71046; 71275; 80053; 82533; 82550; 82607; 82746; 82805; 82948; 83690; 83735; 83880; 84439; 84443; 84484; 85025; 85610; 85730; 87040; 93005; 93306; 94640; 94660; 94761; 96372; 96374; 99285; 99291; A9270; J0696; J1650; J1940; J7030; Q9967; XXXXX